=== PATIENT | female | born 1945 | race Caucasian/White ===

== ENCOUNTER → 2016-09-08 | Outpatient (CLI) | payer MEDICARE ==
[~2016-09-08] MED LIST: ASPI-983 PO; ASPI325T32 PO; CARV12.53 PO; CARV6.252 PO; CEPH-507 PO; CLOP75TA PO; CLOP75TA28 PO; CYCL5TAB PO; FURO20TA4 PO; HYDR-3812 PO; LOSA100T28 PO; LOSA50TA36 PO; METF1000; METF1000 PO; MULT-301 PO; NITR100C PO; OMEP20CA12; OMEP20CA12 PO; OMEP20CA6 PO; OMG1KC PO; ONDA4TAB8 PO; PANT20TA3 PO; PANT40TA3 PO; POTA-51 PO; PRD20T PO; SIMV40TA4; SIMV40TA4 PO; SITA100T12 PO; SITA50TA; TRAM50TA2 PO; TRIA1CAP15; TRIA1CAP4 PO; WALK1EAC23 MC
--- OUTSIDE RECORDS SUMMARY | 2016-09-08 16:12 | XMS REPORT | Continuity of Care Document ---
Author Author [facility] Organization [facility] Address Unknown Phone Unavailable Care Team Providers Care Container Packer Operator Name Role Phone CARINE BERNSTEIN MD PCP Insurance Providers Payer Name Policy Number Subscriber Name Relationship Wps Medicare [id number] Ling Jones 18 Self / Same As Patient Blue Cross [facility] Supp [id number] Ling Jones 18 Self / Same As Patient Advance Directives Directive Response Recorded Date/Time Advance Directives No 02/12/16 4:16pm Health Care Power of Casting Operator No 02/12/16 4:16pm Organ Donor Yes 02/12/16 4:16pm Resuscitation Status Full Code 02/12/16 4:16pm Chief Complaint and Reason for Visit Chief Complaint Head/Cervical Problems Reason for Visit Hypertensive urgency Headache Problems Active Problems Medical Problem Onset Date Status Agitation Unknown Acute CVA (cerebral vascular accident) Unknown Acute Expressive aphasia Unknown Acute Headache Unknown Acute Hypertensive urgency Unknown Acute Hypomagnesemia Unknown Acute Left thigh pain Unknown Acute Nausea and vomiting Unknown Acute Quadriceps tendinitis Unknown Acute Receptive aphasia Unknown Acute Transient cerebral ischemia Unknown Acute Urinary tract infection Unknown Acute Medications Current Home Medications Medication Dose Units Route Directions Days/Qty Instructions Start Date Aspirin 325 Mg 325 Mg Oral Bedtime 07/29/14 Carvedilol 6.25 Mg 6.25 Mg Oral Twice A Day 10/13/15 Multivitamin 1 Each 1 Tab Oral Daily 10/13/15 [place] 3 Polyunsat Fatty Acids 1,000 Mg 1,000 Mg Oral Daily 10/13/15 Simvastatin 40 Mg 40 Mg Oral Bedtime 12/12/15 Triamterene/Hydrochlorothiazid 1 Each 1 Cap Oral Daily 12/12/15 Metformin Hcl 1,000 Mg 1,000 Mg Oral Twice A Day 12/12/15 Losartan Potassium 50 Mg 50 Mg Oral Daily 02/04/16 Pantoprazole Sodium 40 Mg 40 Mg Oral Daily 02/04/16 Sitagliptin Phosphate 100 Mg 100 Mg Oral Daily 02/04/16 Clopidogrel Bisulfate 75 Mg 75 Mg Oral Daily 02/04/16 Past Home Medications Medication Directions Ordered Status Tramadol Hcl 50 Mg Tab, 1 Mg Oral Every 6 Hours as needed for P 07/29/14 Discontinued Simvastatin 40 Mg Tablet, 07/29/14 Discontinued Metformin Hcl 1,000 Mg Tablet, 07/29/14 Discontinued Triamterene/Hctz 1 Udcap Capsule, 07/29/14 Discontinued Sitagliptin Phosphate 50 Mg Tablet, 07/29/14 Discontinued Omeprazole 20 Mg Capsule., 07/29/14 Discontinued Clopidogrel Bisulfate 75 Mg Tablet, 1 Each Oral Daily 07/29/14 Discontinued Omeprazole 20 Mg Capsule., 20 Mg Oral Daily 10/13/15 Discontinued Prednisone 20 Mg Tab, 20 Mg Oral Daily 10/13/15 Discontinued Hydrocodone/Acetaminophen 1 Each Tablet, 1 Each Oral Every 6 Hours as needed for Pain 10/13/15 Discontinued Cyclobenzaprine Hcl 5 Mg Tablet, 5 Mg Oral Every 8HRS as needed for Spasms Discontinued Ondansetron 4 Mg Tab.rapdis, 4 Mg Oral Every 4HRS as needed for Nausea/ Vomiting 12/10/15 Discontinued Cephalexin 500 Mg Capsule, 500 Mg Oral Three Times A Day 12/10/15 Discontinued Omeprazole 20 Mg Capsule., 20 Mg Oral Daily 12/12/15 Discontinued Clopidogrel Bisulfate 75 Mg Tablet, 75 Mg Oral Daily 12/13/15 Discontinued Pantoprazole Sodium 20 Mg Tablet.dr 20 Mg Oral Daily@0700 12/13/15 Discontinued Losartan Potassium 50 Mg Tablet, 50 Mg Oral Daily 12/13/15 Discontinued Nitrofurantoin Macrocrystal 100 Mg Capsule, 100 Mg Oral Twice Daily And Prn 12/13/15 Discontinued Social History Social History Problem Response Recorded Date/Time Alcohol Use Rarely Uses 02/12/2016 4:16pm Recreational Drug Use No 02/12/2016 4:16pm Recent Foreign Travel No 02/12/2016 4:16pm Recent Infectious Disease Exposure No 02/12/2016 4:16pm Hospitalization with Isolation Denies 02/12/2016 4:16pm Smoking Status Never a Smoker 02/12/2016 4:16pm Do you dip or chew tobacco? No 02/04/2016 5:50am Query Response Start Date Stop Date Smoking Status Never a Smoker Hospital Discharge Instructions No hospital discharge instructions. Plan of Care Discharge Date 02/12/16 5:46pm Disposition 01 HOME, SELF-CARE Condition at Discharge Improved Instructions/Education Provided Acute Headache (ED) Prescriptions See Medication Section Referrals CARINE BERNSTEIN MD - Primary Care Physician Additional Instructions/Education Return to ER for any concerns such as severe headaches, nausea vomiting 2. Follow-up with Dr. Linda tomorrow 3. Take all your medications as directed All discharge instructions reviewed with patient and/or family. Voiced understanding. Functional Status Query Response Date Recorded Patient Orientation Person Place Time Situation February 12, 2016 4:16pm Comprehension Ability Understands Concepts February 12, 2016 4:16pm Allergies, Adverse Reactions, Alerts Allergen Type Severity Reaction Status Last Updated Sulfa (Sulfonamide Antibiotics) ([id number]) Allergy Unknown Active 30/12 Immunizations No immunization records. Vital Signs Acute Vital Signs Vital Response Date/Time Temperature (Fahrenheit) 98 degrees F (97.6 - 99.5) 02/12/2016 4:16pm Temperature (Calculated Celsius) 36.6696 degrees C (36.4 - 37.5) 02/12/2016 4 :16pm Temperature Source Temporal 02/12/2016 4:16pm Pulse Rate (adult) 101 bpm (60 - 90) 02/12/2016 4:16pm Respiratory Rate 35 bpm (12 - 24) 02/12/2016 4:16pm O2 Sat by Pulse Oximetry 97 % (88 - 100) 02/12/2016 4:16pm Blood Pressure 176/94 mm Hg 02/12/2016 4:16pm Blood Pressure Mean 121 mm Hg 02/12/2016 4:16pm Pain Numeric Pain Scale 8 02/12/2016 4:16pm Height (Feet) 5 feet 02/12/2016 4:16pm Height (Inches) 5 inches 02/12/2016 4:16pm Height (Calculated Centimeters) 165.375395 cm 02/12/2016 4:16pm Weight (Pounds) 200 pounds 02/12/2016 4:16pm Weight (Ounces) 5.0 oz 02/06/2016 6:00am Weight (Calculated Grams) 32595.407 gm 02/06/2016 6:00am Weight (Calculated Kilograms) 90.726782 kilograms 02/12/2016 4:16pm Calculated BMI 37.4 02/04/2016 11:47am Capillary Refill Capillary Refill Less Than 3 Seconds 02/12/2016 4:16pm Results Laboratory Results Test Name Result Units Flags Reference Collection Date/Time Result Date/ Time Comments White Blood Count 8.0 10^3/uL 4.3-11.0 02/04/2016 5:50am 02/04/2016 5: 58am Red Blood Count 3.70 10^6/uL L 4.35-5.85 02/04/2016 5:50am 02/04/2016 5: 58am Hemoglobin 10.3 G/DL L 11.5-16.0 02/04/2016 5:50am 02/04/2016 5:58am Hematocrit 31 % L 35-52 02/04/2016 5:50am 02/04/2016 5:58am Mean Corpuscular Volume 83 FL 80-99 02/04/2016 5:50am 02/04/2016 5: 58am Mean Corpuscular Hemoglobin 28 PG 25-34 02/04/2016 5:50am 02/04/2016 5: 58am Mean Corpuscular Hemoglobin Concent 34 G/DL 32-36 02/04/2016 5:50am 5:58am Red Cell Distribution Width 15.7 % H 10.0-14.5 02/04/2016 5:50am 2015 5:58am Platelet Count 263 10^3/uL 130-400 02/04/2016 5:50am 02/04/2016 5:58am Mean Platelet Volume 9.5 FL 7.4-10.4 02/04/2016 5:50am 02/04/2016 5: 58am Neutrophils (%) (Auto) 70 % 42-75 02/04/2016 5:50am 02/04/2016 5:58am Lymphocytes (%) (Auto) 22 % 12-44 02/04/2016 5:50am 02/04/2016 5:58am Monocytes (%) (Auto) 5 % 0-12 02/04/2016 5:50am 02/04/2016 5:58am Eosinophils (%) (Auto) 2 % 0-10 02/04/2016 5:50am 02/04/2016 5:58am Basophils (%) (Auto) 1 % 0-10 02/04/2016 5:50am 02/04/2016 5:58am Neutrophils # (Auto) 5.7 X 10^3 1.8-7.8 02/04/2016 5:50am 02/04/2016 5: 58am Lymphocytes # (Auto) 1.8 X 10^3 1.0-4.0 02/04/2016 5:50am 02/04/2016 5: 58am Monocytes # (Auto) 0.4 X 10^3 0.0-1.0 02/04/2016 5:50am 02/04/2016 5: 58am Eosinophils # (Auto) 0.2 10^3/uL 0.0-0.3 02/04/2016 5:50am 02/04/2016 5 :58am Basophils # (Auto) 0.1 10^3/uL 0.0-0.1 02/04/2016 5:50am 02/04/2016 5: 58am Prothrombin Time 12.5 SEC 12.2-14.7 02/04/2016 5:50am 02/04/2016 6: 09am INR Comment 1.0 0.8-1.4 02/04/2016 5:50am 02/04/2016 6:09am INTERPRETIVE DATA SUGGESTED THERAPEUTIC RANGE FOR INR'S: VENOUS THROMBOSIS, PULMONARY EMBOLISM, OR PREVENTION OF SYSTEMIC EMBOLISM (EG. IN ATRIAL FIBRILLATION): 2.0 - 3.0 MECHANICAL PROSTHETIC HEART VALVES: 2.5 - 3.5* *NOTE: INR'S UP TO 4.5 MAY BE NECESSARY IN SELECTED GROUPS OF HIGH RISK PATIENTS. [employer] [place] COLLEGE OF CHEST PHYSICIANS CONSENSUS CONFERENCE ON ANTITHROMBOTIC THERAPY (2000). Activated Partial Thromboplast Time 33 SEC 24-35 02/04/2016 5:50am 6:09am D-Dimer 0.91 UG/ML H 0.00-0.49 02/04/2016 5:50am 02/04/2016 9:00am --- 02/04/16 0859 --- D-DIMER previously reported as: 0.91 H UG/ML Urine Color YELLOW 02/04/2016 6:54am 02/04/2016 7:32am Urine Clarity VERY CLOUDY * 02/04/2016 6:54am 02/04/2016 7:32am Urine pH 6 5-9 02/04/2016 6:54am 02/04/2016 7:32am Urine Specific [place] 1.020 1.016-1.022 02/04/2016 6:54am 2015 7:32am Urine Protein 4+ NEGATIVE 02/04/2016 6:54am 02/04/2016 7:32am Urine Glucose (UA) 1+ * NEGATIVE 02/04/2016 6:54am 02/04/2016 7:32am Urine RBC (Auto) NEGATIVE NEGATIVE 02/04/2016 6:54am 02/04/2016 7: 32am Urine Ketones NEGATIVE NEGATIVE 02/04/2016 6:54am 02/04/2016 7:32am Urine Nitrite NEGATIVE NEGATIVE 02/04/2016 6:54am 02/04/2016 7:32am Urine Bilirubin NEGATIVE NEGATIVE 02/04/2016 6:54am 02/04/2016 7: 32am Urine Urobilinogen NORMAL MG/DL NORMAL 02/04/2016 6:54am 02/04/2016 7: 32am Urine Leukocyte Esterase NEGATIVE NEGATIVE 02/04/2016 6:54am 2015 7:32am Urine RBC NONE /HPF 02/04/2016 6:54am 02/04/2016 7:32am Urine WBC NONE /HPF 02/04/2016 6:54am 02/04/2016 7:32am Urine Bacteria TRACE /HPF 02/04/2016 6:54am 02/04/2016 7:32am Urine Squamous Epithelial Cells 0-2 /HPF 02/04/2016 6:54am 2015 7:32am Urine Crystals NONE /LPF 02/04/2016 6:54am 02/04/2016 7:32am Urine Casts NONE /LPF 02/04/2016 6:54am 02/04/2016 7:32am Urine Mucus NEGATIVE /LPF 02/04/2016 6:54am 02/04/2016 7:32am Urine Culture Indicated NO 02/04/2016 6:54am 02/04/2016 7:32am Sodium Level 139 MMOL/L 135-145 02/04/2016 5:50am 02/04/2016 6:20am Potassium Level 4.3 MMOL/L 3.6-5.0 02/04/2016 5:50am 02/04/2016 6:20am Chloride Level 102 MMOL/L 98-107 02/04/2016 5:50am 02/04/2016 6:20am Carbon Dioxide Level 23 MMOL/L 21-32 02/04/2016 5:50am 02/04/2016 6: 20am Anion Gap 14 MMOL/L 5-02/04/2016 5:50am 02/04/2016 6:20am Blood Urea Nitrogen 25 MG/DL H 7-18 02/04/2016 5:50am 02/04/2016 6:20am Creatinine 1.35 MG/DL H 0.60-1.30 02/04/2016 5:50am 02/04/2016 6:20am BUN/Creatinine Ratio 19 02/04/2016 5:50am 02/04/2016 6:20am Estimat Glomerular Filtration Rate 39 02/04/2016 5:50am 02/04/2016 6:20am GFR INTERPRETIVE DATA UNITS FOR ESTIMATED GFR (eGFR): mL/min/1.73 M2 REFERENCE RANGE FOR ESTIMATED GFR (eGFR) eGFR NORMAL eGFR >60 MODERATELY DECREASED eGFR 30-59 SEVERLY DECREASED eGFR 15-29 KIDNEY FAILURE <15 (OR DIALYSIS) Glucose Level 197 MG/DL H 70-105 02/04/2016 5:50am 02/04/2016 6:20am Glucometer 164 MG/DL H 70-110 02/04/2016 6:02pm 02/04/2016 8:49pm Calcium Level 9.7 MG/DL 8.5-10.1 02/04/2016 5:50am 02/04/2016 6:20am Magnesium Level 1.5 MG/DL L 1.8-2.4 02/04/2016 5:50am 02/04/2016 6:20am Total Bilirubin 0.5 MG/DL 0.1-1.0 02/04/2016 5:50am 02/04/2016 6:20am Alkaline Phosphatase 65 U/L 40-136 02/04/2016 5:50am 02/04/2016 6:20am Aspartate Amino Transf (AST/SGOT) 15 U/L 5-34 02/04/2016 5:50am 2015 6:20am Alanine Aminotransferase (ALT/SGPT) 18 U/L 0-55 02/04/2016 5:50am 02/03 6:20am Troponin I < 0.30 NG/ML <0.30 02/04/2016 5:50am 02/04/2016 6:24am Myoglobin 41.6 NG/ML 10.0-92.0 02/04/2016 5:50am 02/04/2016 6:24am Total Protein 6.8 G/DL 6.4-8.2 02/04/2016 5:50am 02/04/2016 6:20am Albumin 4.1 G/DL 3.2-4.5 02/04/2016 5:50am 02/04/2016 6:20am Pending Laboratory Results Test Name Collection Date/Time Microbiology Results Procedure Source Result Collection Date/Time Result Date/Time MRSA Screen Nasal MRSA not isolated 02/04/2016 11:30am 02/05/2016 2:19pm Procedures Procedure Status Date Provider(s) INTRODUCE OTH THROMBOLYTIC IN PERIPH VEIN, PERC Completed 02/04/16 BEATRIZ RAMIREZ DO Tracing only of electrocardiogram Completed 02/04/16 BEATRIZ RAMIREZ DO Tracing only of electrocardiogram Active 02/12/16 DENICE SHAH MEDICAL PRACTICE ASSISTANT Encounters Encounter Location Arrival/Admit Date Discharge/Depart Date Attending Provider Departed Emergency Room [facility] 02/12/16 4:16pm 02/11 5:46pm DENICE SHAH MEDICAL PRACTICE ASSISTANT Registered Recurring [facility] 02/12/16 11:10am CARINE BERNSTEIN MD Discharged Inpatient [facility] 02/04/16 11:03am 3:15pm CARINE BERNSTEIN MD Recent Diagnosis
--- NOTE | 2016-09-08 19:16 | Diagnostic Imaging Report ---
INDICATION: Shortness of breath. PA and lateral chest obtained at 4:33 p.m. Comparison made with 02/04/16. FINDINGS: There is cardiomegaly. There is mild central vascular prominence. There is a small amount of pleural fluid on both sides, left greater than right. There is improved central vascular congestion and edema compared to the prior study. IMPRESSION: Cardiomegaly. Improved central vascular congestion and edema compared to the prior study. There are small bilateral pleural effusions left greater than right. Dictated by: Dictated on workstation # [id number]
== END ==
LOC: RAD 16:02
PROVIDERS: ATTEND Internal Medicine
DX: R06.02 Shortness of breath (principal)
CPT/HCPCS: 71020

== ENCOUNTER → 2016-09-12 | Outpatient (CLI) | payer MEDICARE ==
--- OUTSIDE RECORDS SUMMARY | 2016-09-12 08:36 | XMS REPORT | Continuity of Care Document ---
Author Author [facility] Organization [facility] Address Unknown Phone Unavailable Care Team Providers Care General Service Officer Name Role Phone CARINE BERNSTEIN MD PCP Insurance Providers Payer Name Policy Number Subscriber Name Relationship Wps Medicare [id number] Ling Jones 18 Self / Same As Patient Blue Cross [facility] Supp [id number] Ling Jones 18 Self / Same As Patient Advance Directives Directive Response Recorded Date/Time Advance Directives No 02/12/16 4:16pm Health Care Power of Property Economist No 02/12/16 4:16pm Organ Donor Yes 02/12/16 [...] 1 Each 1 Tab Oral Daily 10/13/15 [place] 3 Polyunsat Fatty Acids 1,000 Mg 1,000 [...] Reaction Status Last Updated Sulfa (Sulfonamide Antibiotics) ([id number]) Allergy Unknown Active 30/12 Immunizations No immunization [...] 5 inches 02/12/2016 4:16pm Height (Calculated Centimeters) 165.134626 cm 02/12/2016 4:16pm Weight (Pounds) 200 pounds 02/12/2016 4:16pm Weight (Ounces) 5.0 oz 02/06/2016 6:00am Weight (Calculated Grams) 92986.407 gm 02/06/2016 6:00am Weight (Calculated Kilograms) 90.166029 kilograms 02/12/2016 4:16pm Calculated BMI 37.4 02/04/2016 [...] SELECTED GROUPS OF HIGH RISK PATIENTS. [employer] [place] [employer]ST [employer] CONSENSUS CONFERENCE ON [...] 5-9 02/04/2016 6:54am 02/04/2016 7:32am Urine Specific [place] 1.020 1.016-1.022 02/04/2016 6:54am 2015 7:32am Urine [...] of electrocardiogram Active 02/12/16 DENICE SHAH MEDICAL SCRIBE Encounters Encounter Location Arrival/Admit Date Discharge/Depart Date Attending Provider Departed Emergency Room [facility] 02/12/16 4:16pm 02/11 5:46pm DENICE SHAH MEDICAL SCRIBE Registered Recurring [facility] 02/12/16 11:10am CARINE BERNSTEIN MD Discharged Inpatient [facility] 02/04/16 11:03am 3:15pm CARINE BERNSTEIN MD Recent Diagnosis
--- NOTE | 2016-09-17 08:05 | ECHOCARDIOGRAPHY REPORT ---
PROCEDURE PHYSICIAN: VALERIE HAYWOOD DATE OF PROCEDURE: 09/12/2016 TWO DIMENSIONAL ECHOCARDIOGRAM REPORT PRIMARY PHYSICIAN: Dr. Linda OTHER PHYSICIAN: REFERRING PHYSICIAN: ORDERING PHYSICIAN: Dr. Haywood INDICATION FOR THE PROCEDURE: 1. Coronary artery disease. 2. Chronic kidney disease stage II. MEASUREMENTS DERIVED VALUES LV DIAMETER (LAX) NORMALS NORMALS Diastolic 6.4 (3.6-5.2) Eject. Fract. (60%+/-6%) Systolic (2.3-3.9) Diastolic Vol. % Shortening (0.22-0.42) Systolic Vol. Aortic Root 3.1 IVS THICKNESS Diastolic 1 (0.6-1.1) LVPW THICKNESS Diastolic 1.1 (0.6-1.1) LA DIAMETER Systolic 4 (2.1-3.7) DESCRIPTION: Two-dimensional echocardiography shows marked impairment of global left ventricular systolic function. There is moderate enlargement of the left ventricle. Aortic, mitral and tricuspid valve leaflets show fair leaflet excursion. There is mild to moderate mitral regurgitation and mild tricuspid regurgitation. Pulmonary artery systolic pressure is estimated to be approximately 50 mmHg. There is global hypokinesis of the left ventricle. There is no Doppler evidence of any significant valvular stenosis. CONCLUSIONS: 1. Marked impairment of global left ventricular systolic function, global hypokinesis of the left ventricle. Left ventricular ejection fraction is approximately 15%. 2. Mild to moderate mitral regurgitation. 3. Mild tricuspid regurgitation. 4. Pulmonary artery systolic pressure is estimated to be approximately 50 mmHg. 5. No evidence of significant valvular stenosis. Job ID: [id number] Dictated Date: 09/16/2016 14:04:18 Carbonizer Date: 09/17/2016 08:00:14 / phong
== END ==
LOC: CARD 08:33
PROVIDERS: ATTEND Internal Medicine Cardiovascular Disease
DX: I25.10 Atherosclerotic heart disease of native coronary artery without angina pectoris (principal); E11.9 Type 2 diabetes mellitus without complications; I12.9 Hypertensive chronic kidney disease with stage 1 through stage 4 chronic kidney disease, or unspecified chronic kidney disease; N18.2 Chronic kidney disease, stage 2 (mild); E78.4 Other hyperlipidemia; Z86.79 Personal history of other diseases of the circulatory system
CPT/HCPCS: 93306

== ENCOUNTER 2016-09-23 06:50 | Day surgery (SDC) | payer MEDICARE ==
[~2016-09-23] VITALS: Ht 157.5 cm; Wt 82.6 kg
[2016-09-23] VITALS (11 sets, daily range): BP systolic 120–138; BP diastolic 58–85
[~2016-09-23 06:50] MED LIST changes: -ASPI-983 PO; -CARV12.53 PO; -FURO20TA4 PO; -LOSA100T28 PO; -POTA-51 PO
--- OUTSIDE RECORDS SUMMARY | 2016-09-23 06:54 | XMS REPORT | Continuity of Care Document ---
Author Author [facility] Organization [facility] Address Unknown Phone Unavailable Care Team Providers Care Peer Financial Counselor Name Role Phone CARINE BERNSTEIN MD PCP Insurance Providers Payer Name Policy Number Subscriber Name Relationship Wps Medicare [id number] Ling Jones 18 Self / Same As Patient Blue Cross [facility] Supp [id number] Ling Jones 18 Self / Same As Patient Advance Directives Directive Response Recorded Date/Time Advance Directives No 02/12/16 4:16pm Health Care Power of Fulfillment Coordinator No 02/12/16 4:16pm Organ Donor Yes 02/12/16 [...] 1 Each 1 Tab Oral Daily 10/13/15 [place] 3 Polyunsat Fatty Acids 1,000 Mg 1,000 [...] Reaction Status Last Updated Sulfa (Sulfonamide Antibiotics) ([id number]) Allergy Unknown Active 30/12 Immunizations No immunization [...] 5 inches 02/12/2016 4:16pm Height (Calculated Centimeters) 165.458907 cm 02/12/2016 4:16pm Weight (Pounds) 200 pounds 02/12/2016 4:16pm Weight (Ounces) 5.0 oz 02/06/2016 6:00am Weight (Calculated Grams) 44328.407 gm 02/06/2016 6:00am Weight (Calculated Kilograms) 90.458403 kilograms 02/12/2016 4:16pm Calculated BMI 37.4 02/04/2016 [...] SELECTED GROUPS OF HIGH RISK PATIENTS. [employer]IX[employer] [place] [employer]ST [employer] CONSENSUS CONFERENCE ON [...] 5-9 02/04/2016 6:54am 02/04/2016 7:32am Urine Specific [place] 1.020 1.016-1.022 02/04/2016 6:54am 2015 7:32am Urine [...] only of electrocardiogram Active 02/12/16 DENICE SHAH PHYSICAL THERAPIST TECHNICIAN Encounters Encounter Location Arrival/Admit Date Discharge/Depart Date Attending Provider Departed Emergency Room [facility] 02/12/16 4:16pm 02/11 5:46pm DENICE SHAH PHYSICAL THERAPIST TECHNICIAN Registered Recurring [facility] 02/12/16 11:10am CARINE BERNSTEIN MD Discharged Inpatient [facility] 02/04/16 11:03am 3:15pm CARINE BERNSTEIN MD Recent Diagnosis
--- OUTSIDE RECORDS SUMMARY | 2016-09-23 06:55 | XMS REPORT | Continuity of Care Document ---
Author Author [facility] Organization [facility] Address Unknown Phone Unavailable Care Team Providers Care Air Breaker Operator Name Role Phone CARINE BERNSTEIN MD PCP Insurance Providers Payer Name Policy Number Subscriber Name Relationship Wps Medicare [id number] Ling Jones 18 Self / Same As Patient Blue Cross [facility] Supp [id number] Ling Jones 16 Self / Same As Patient Advance Directives Directive Response Recorded Date/Time Advance Directives No 02/12/16 4:16pm Health Care Power of Curtain Cutter Hand No 02/12/16 4:16pm Organ Donor Yes 02/12/16 [...] 1 Each 1 Tab Oral Daily 10/13/15 [place] 3 Polyunsat Fatty Acids 1,000 Mg 1,000 [...] Reaction Status Last Updated Sulfa (Sulfonamide Antibiotics) ([id number]) Allergy Unknown Active 30/12 Immunizations No immunization [...] 5 inches 02/12/2016 4:16pm Height (Calculated Centimeters) 165.042805 cm 02/12/2016 4:16pm Weight (Pounds) 200 pounds 02/12/2016 4:16pm Weight (Ounces) 5.0 oz 02/06/2016 6:00am Weight (Calculated Grams) 76580.407 gm 02/06/2016 6:00am Weight (Calculated Kilograms) 90.785644 kilograms 02/12/2016 4:16pm Calculated BMI 37.4 02/04/2016 [...] SELECTED GROUPS OF HIGH RISK PATIENTS. [employer] [place] [employer] CONSENSUS CONFERENCE ON [...] 5-9 02/04/2016 6:54am 02/04/2016 7:32am Urine Specific [place] 1.020 1.016-1.022 02/04/2016 6:54am 2015 7:32am Urine [...] only of electrocardiogram Active 02/12/16 DENICE SHAH TECHNICAL EDUCATION TEACHER Encounters Encounter Location Arrival/Admit Date Discharge/Depart Date Attending Provider Departed Emergency Room [facility] 02/12/16 4:16pm 02/11 5:46pm DENICE SHAH TECHNICAL EDUCATION TEACHER Registered Recurring [facility] 02/12/16 11:10am CARINE BERNSTEIN MD Discharged Inpatient [facility] 02/04/16 11:03am 3:15pm CARINE BERNSTEIN MD Recent Diagnosis
[2016-09-23] MEDS ORDERED: LIDOCAINE 1% INJ 20 ML (XYLOCAINE) VIAL ONE (07:01)
[2016-09-23] MEDS ORDERED: HEParin (CATH LAB) 2,000 ML IV ONE (07:01)
[2016-09-23] MEDS ORDERED: NS IV 1000 ML 1,000 ML ONE (07:01)
[2016-09-23] MEDS ORDERED: NS IV 1000 ML 1,000 ML IV SCH ×2 (07:20)
[2016-09-23 07:48] LABS: MEAN PLATELET VOLUME 9.7 FL (7.4-10.4); RED BLOOD COUNT 4.15 10^6/uL (4.35-5.85); RED CELL DISTRIBUTION WIDTH 17.2 % (10.0-14.5); WHITE BLOOD COUNT 5.6 10^3/uL (4.3-11.0)
[2016-09-23 07:57] LABS: INR 1.3 (0.8-1.4); PROTHROMBIN TIME PATIENT 15.5 SEC (12.2-14.7)
[2016-09-23 08:09] LABS: ALBUMIN 3.9 G/DL (3.2-4.5); BILIRUBIN,TOTAL 1.3 MG/DL (0.1-1.0); CALCIUM 8.9 MG/DL (8.5-10.1); CREATININE SERUM 1.78 MG/DL (0.60-1.30); POTASSIUM 3.9 MMOL/L (3.6-5.0)
[2016-09-23] MEDS ORDERED: ASPI-983 PO (10:02)
[2016-09-23] MEDS ORDERED: LOSA100T28 PO (10:02)
[2016-09-23] MEDS ORDERED: POTA-51 PO (10:19)
[2016-09-23] MEDS ORDERED: OMEP20CA12 PO (10:19)
[2016-09-23] MEDS ORDERED: FURO20TA4 PO (10:19)
[2016-09-23] MEDS ORDERED: CARV12.53 PO (10:31)
[2016-09-23] MEDS ORDERED: fentaNYL INJECTION 100 MCG/2 ML AMP ONE (10:48)
[2016-09-23] MEDS ORDERED: diphenhydrAMINE 50 MG/ML INJ (BENADRYL) ONE (10:48)
[2016-09-23] MEDS ORDERED: MIDAZOLAM 5 MG/5 ML (VERSED) VIAL ONE (10:48)
--- NOTE | 2016-09-23 13:28 | Cardiac Procedure Note-CS/ASA ---
Pre-Procedure Note Pre-Op Procedure Note H&P Reviewed The H&P was reviewed, patient examined and no changes noted. Date H&P Reviewed: Sep 23, 2016 Time H&P Reviewed: :28 Conscious Sedation Pre-Proced Time Reviewed: :28 ASA Class: 3 Airway Mallampati Classification: ([place] appropriate class) I. II. III, IV Lungs Heart ASA score ASA 1: a normal healthy patient ASA 2: a patient with a mild systemic disease (mid diabetes, controlled hypertension, obesity ASA 3: a patient with a severe systemic disease that limits activity (angina , COPD, prior Myocardial infarction) ASA 4: a patient with an incapacitating disease that is a constant threat to life (CHF, renal failure) ASA 5: a moribund patient not expected to survive 24 hrs. (ruptured aneurysm) ASA 6: a declared brain patient whose organs are being harvested. For emergent operations, add the letter E after the classification Grade 3 Sedation Plan: Analgesia, Amnesia, Plan communicated to team members, Discussed options with patient/fam, Discussed risks with patient/fam Note The patient is an appropriate candidate to undergo the planned procedure, sedation, and anesthesia. The patient immediately re-assessed prior to indication. VALERIE HARGROVE MD FACP FAC CCDS Sep 23, 2016 13:28
[2016-09-23] MEDS ORDERED: HEParin 1000 UNIT/ML (10ML VIAL) FOR BOLUS ONE (14:05)
[2016-09-23] MEDS ORDERED: EPTIFIBATIDE BOLUS 20 ML IV ONE (14:05)
[2016-09-23] MEDS ORDERED: NITROGLYCERIN DRIP 25 MG/D5W 250 ML IV ONE (14:09)
[2016-09-23] MEDS ORDERED: ASPIRIN 81 MG CHEW (CHILDREN'S ASA) ONE (15:06)
[2016-09-23] MEDS ORDERED: CLOPIDOGREL 300 MG (PLAVIX) TABLET PO ONE (15:06)
[2016-09-23] MEDS ORDERED: FUROSEMIDE 40 MG/4 ML INJ (LASIX) IVP ONE (15:45)
[2016-09-23] MEDS ORDERED: ACETAMINOPHEN 325 MG TABLET/CAPLET (TYLENOL) PO PRN (15:45)
[2016-09-23] MEDS ORDERED: PATIENT MAY USE OWN MEDS, ALL PO SCH (15:45)
[2016-09-23] MEDS: NS IV 1000 ML 1,000 ML IV SCH (17:15)
[2016-09-23] MEDS: inSUlin (REGULAR) HUMAN 1 UNIT/0.01 ML (CHARGE PER UNIT) SC SCH ×2 (17:21→21:00)
[2016-09-23] MEDS: OMEGA 3 (FISH OIL) 1000 MG CAP PO SCH (21:00)
[2016-09-23] MEDS: CARVEDILOL 6.25 MG (COREG) TAB PO SCH (21:13)
[2016-09-24 00:10] VITALS: BP 143/71
[2016-09-24] MEDS: NS IV 1000 ML 1,000 ML IV SCH (03:28)
[2016-09-24 04:05] VITALS: BP 136/69
[2016-09-24] MEDS: inSUlin (REGULAR) HUMAN 1 UNIT/0.01 ML (CHARGE PER UNIT) SC SCH (05:58)
[2016-09-24 06:07] LABS: MEAN PLATELET VOLUME 10.3 FL (7.4-10.4); RED BLOOD COUNT 3.68 10^6/uL (4.35-5.85); RED CELL DISTRIBUTION WIDTH 17.2 % (10.0-14.5); WHITE BLOOD COUNT 4.9 10^3/uL (4.3-11.0)
[2016-09-24] MEDS ORDERED: MULTIVIT PO SCH (07:00)
[2016-09-24] MEDS ORDERED: KCL 20 MEQ TAB (K-DUR) PO SCH (07:00)
[2016-09-24] MEDS ORDERED: PANTOPRAZOLE 20 MG TABLET (PROTONIX) PO SCH (07:00)
[2016-09-24] MEDS ORDERED: MINERALS PO SCH (07:00)
[2016-09-24 07:01] LABS: CALCIUM 8.5 MG/DL (8.5-10.1); CREATININE SERUM 1.69 MG/DL (0.60-1.30); POTASSIUM 3.6 MMOL/L (3.6-5.0)
[2016-09-24 08:09] VITALS: BP 140/72
[2016-09-24] MEDS: OMEGA 3 (FISH OIL) 1000 MG CAP PO SCH (08:33)
[2016-09-24] MEDS: CARVEDILOL 6.25 MG (COREG) TAB PO SCH (08:35)
[2016-09-24] MEDS: ASPIRIN E.C. 81 MG (ECOTRIN) TAB PO SCH ×2 (08:39→08:41)
[2016-09-24] MEDS ORDERED: FUROSEMIDE 20 MG (LASIX) TAB PO SCH (09:00)
[2016-09-24] MEDS ORDERED: CLOPIDOGREL 75 MG (PLAVIX) TABLET PO SCH (09:00)
[2016-09-24] MEDS ORDERED: SITAGLIPTIN 100 MG PO SCH (09:00)
--- NOTE | 2016-09-24 09:29 | Progress Note-Cardiology ---
Cardiology SOAP Progress Note Subjective: Sitting up in a chair at the bedside. States she feels better this morning. No c/o CP, palpitations or dyspnea. No c/o right groin discomfort. Spouse at the bedside. Objective: I&O/Vital Signs Vital Sign - Last 12Hours 09/24/16 09/24/16 09/24/16 09/24/16 00:10 01:00 04:05 07:00 Temp 97.7 98.2 Pulse 80 71 94 92 Resp 18 20 B/P 143/71 136/69 Pulse Ox 96 94 O2 Delivery Room Air Room Air 09/24/16 09/24/16 09/24/16 08:09 09:00 10:20 Temp 96.9 Pulse 80 80 Resp 20 20 B/P 140/72 140/72 Pulse Ox 94 94 O2 Delivery Room Air Room Air Room Air Weight (Pounds): 182 Weight (Ounces): 0.0 Weight (Calculated Kilograms): 82.300366 Side: right Groin site without hematoma: Yes Condition: DP/PT pulses palpable, extremity w/d/p Bruising: mild bruising Constitutional: AAO x 3 Respiratory: lungs clear to auscultation Cardiovascular: regular rate-rhythm S1 and S2 Gastrointestional: No tender, soft round Extremities: significant edema (mid bilat LE edema) Neurologic/Psychiatric: grossly intact Skin: No rash, No ulcerations Results/Procedures: Labs Laboratory Tests 09/23/16 17:20: Glucometer 105 09/23/16 21:12: Glucometer 127H 09/24/16 05:50: Anion Gap 13, BUN/Creatinine Ratio 12, Blood Urea Nitrogen 21H, Calcium Level 8.5, Carbon Dioxide Level 24, Chloride Level 103, Creatinine 1.69H, Estimat Glomerular Filtration Rate 30, Glucose Level 114H, Hematocrit 27L, Hemoglobin 8.6L, Mean Corpuscular Hemoglobin 23L, Mean Corpuscular Hemoglobin Concent 32, Mean Corpuscular Volume 74L, Mean Platelet Volume 10.3, Platelet Count 214, Potassium Level 3.6, Red Blood Count 3.68L, Red Cell Distribution Width 17.2H, Sodium Level 140, White Blood Count 4.9 09/24/16 05:53: Glucometer 121H A/P: Assessment: CAD. Last card cath and cor intervention on 09/23/16: S/p proximal PTCA (instent) and distal RCA coronary stenting and proximal PTCA (instent) of the LCX on ; 70% ostial LAD stenosis not intervened on at this time Acute systolic CHF due to dilated cardiomyopathy - clinically compensated H/o CVA/TIA x 3 in the summer of 2015; one episode diagnosed with thromboemblic R MCA stroke (according to ER notes) and apparently treated with TPA Carotid w/u in January 2016 at [facility]: carotid u/s showed mild atherosclerotic bilat disease with stenoses 0-40%; CT angio head showed no high grade stenosis, occlusion or ic aneurysm Last echo of 09/12/16 showed LVEF 15%, mild to mod to MR, mild TR, PASP 50 mmHg. Prior echo of 12/12/15 (Dr Yang): LVEF 45-50%, midl MR and TR, mild diastolic dysfunction Hypertension. Hyperlipidemia being treated with simvastatin. Intolerance to FAITH inhibitors on account of cough. History of lower gastrointestinal bleeding due to diverticulitis in August 2005, followed by her fam phy Obesity with a body mass index of approximately 39. 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 This is being managed by Dr Solis CKD stage 3, likely due to diabetic nephropathy, stable Chronic anemia or unknown etiology, followed by Dr Solis Plan: Cr slightly better following aggressive IVF hydration after cardiac cath We have discussed her coronary status with her We will continue current medications including Plavix, ASA and BB Discharge home today with out pt f/u in a week Lab next week before office visit Physician Assessment Physician Assessment Lungs: good bilat air entry Cor: reg A&R As documented in our note above that I updated at the time of this writing I spoke with her and her daughter and answered questions FRANTZ CORLEY Sep 24, 2016 09:29 VALERIE HARGROVE MD FACP FAC CCDS Sep 24, 2016 12:05
--- NOTE | 2016-09-24 09:33 | Discharge Inst-Cardiology ---
Discharge Inst-Cardiac Discharge Medications Continued Medications: Aspirin (Aspirin EC) 81 Mg Tablet.dr 81 MG PO HS TAB Carvedilol (Carvedilol) 12.5 Mg Tablet 12.5 MG PO BID TAB Clopidogrel Bisulfate (Clopidogrel) 75 Mg Tablet 75 MG PO DAILY TAB Furosemide (Furosemide) 20 Mg Tablet 20 MG PO DAILY TAB Losartan Potassium (Losartan Potassium) 100 Mg Tablet 100 MG PO DAILY TAB Metformin HCl (Metformin HCl) 1,000 Mg Tablet 1000 MG PO BID Multivitamin (Multi-Day Vitamins) 1 Each Tablet 1 TAB PO DAILY [place] 3 Polyunsat Fatty Acids (Fish Oil 1,000 mg Capsule) 1,000 Mg Cap 1000 MG PO BID Omeprazole (Omeprazole) 20 Mg Capsule.dr 20 MG PO DAILY Potassium Chloride (Potassium Chloride) 20 Meq Tablet.er 20 MEQ PO DAILY TAB Sitagliptin Phosphate (Januvia) 100 Mg Tablet 50 MG PO DAILY TAKES 1/2 OF A (100 MG) TABLET Patient Instructions Patient Instructions: HOLD METFORMIN TODAY AND TOMORROW. RESUME METFORMIN STARTING ON MONDAY, SEPTEMBER 26, 2016 Follow up appt to see Dr. Haywood next week Lab: CBC, BMP on Thursday, September 29, 2016 FRANTZ CORLEY Sep 24, 2016 09:32
[2016-09-24 10:20] VITALS: BP 140/72
--- NOTE | 2016-09-24 13:15 | CARDIAC CATHETERIZATION ---
PROCEDURE PHYSICIAN: VALERIE HARGROVE CARDIAC CATHETERIZATION AND CORONARY INTERVENTION REPORT DATE OF PROCEDURE: 09/23/2016 Ling Jones is a 71-year-old lady with known coronary artery disease, who recently found to have considerable deterioration of her left ventricular ejection fraction to approximately 15% from previous approximately 45%. Ischemic coronary artery disease was suspected and cardiac catheterization was carried out after having obtained an informed consent. Vigorous perioperative hydration was carried out because of her chronic kidney disease stage III. She understood all for risk and provided an informed consent. PROCEDURE: She is brought to the cardiac catheterization laboratory in a fasting state. The right groin was prepared and draped in the usual sterile fashion. 1% lidocaine was used for local anesthesia. Modified Seldinger technique was used to advance a 5-Canadian sheath in right femoral artery. A 5-Canadian JL4 catheter was used for left coronary angiography, 5 Canadian JR4 was used for right coronary angiography. A 5-Canadian pigtail catheter was used for left heart catheterization. Left ventricular angiography was not performed to conserve dye. PERCUTANEOUS INTERVENTION TO THE RIGHT CORONARY ARTERY: Following completion of the diagnostic procedure, we exchanged the sheath over a wire for a 6-Canadian sheath. We gave 5000 units of intravenous heparin. A double bolus of Integrilin was given. We used a 6-Canadian JR4 guide catheter with side holes to engage the right coronary artery. We used a BMW wire to cross the lesions in the right coronary artery. We first carried out balloon angioplasty of the 70% in-stent restenosis with Emerge 3.0 x 30 mm balloon and then NC Quantum 3.0 x 20 mm balloon. The balloon inflations reduced the stenosis to approximately 10% residual. In the distal right coronary artery, prior to the origin of the posterior descending branch, there was approximately 80% stenosis to which we first carried out balloon angioplasty with Emerge 2.0 x 20 mm balloon and then stented the lesion with Alpine Xience 2.25 x 12 mm stent. This reduced the stenosis to 0% residual. Throughout the vessel was normal. Angioplasty equipment was removed. PERCUTANEOUS INTERVENTION TO THE LEFT CIRCUMFLEX ARTERY: Following completion of intervention to the right coronary artery, we used a 6-Canadian JL4 guide catheter to engage the left circumflex artery. We used a BMW wire to cross the lesion in the left circumflex artery and the tip was placed in distal vessel. We carried out balloon angioplasty for in-stent restenosis of the proximal left circumflex artery, which reduced the stenosis from approximately 70% to 10% residual. CORONARY ANGIOGRAPHY: Diffuse coronary calcification is present. The left main coronary artery does not exhibit significant obstructive disease. The left anterior descending artery has 70% ostial stenosis, which was not intervened on today. The right coronary artery has diffuse moderate disease. Left circumflex artery has a patent stent with 70% stenosis in the proximal part of the stent to which balloon angioplasty was carried out with reduction of stenosis to 10%. The rest of the left circumflex artery has diffuse, moderate disease. Right coronary artery is dominant and is known to have Taxus 3.0 x 30 mm stent in the proximal and mid portions, which was exhibiting 70% in-stent restenosis to which successful balloon angioplasty was carried out with reduction of stenosis to 10% residual. The distal right coronary artery, prior to the origin of the posterior descending branch had 80% stenosis to which successful stenting was carried out following deployment of Alpine Xience 2.25 x 12 mm stent to the distal right coronary artery, there is 0% residual stenosis. CONCLUSION: 1. Multivessel coronary artery disease as outlined above. In the proximal right coronary artery there was 70% restenosis which was reduced to 10% following balloon angioplasty. The distal right coronary artery had 80% stenosis, which was reduced to 0% following deployment of Alpine Xience 2.25 x 12 mm stent. The left circumflex artery had 70% instent restenosis in the proximal left circumflex to which balloon angioplasty was carried out and reduced the stenosis to 10% residual. The left anterior descending artery has 70% ostial and proximal stenosis, which was not intervened on at this time. 2. Mild elevation left ventricular end-diastolic pressure. DISCUSSION AND RECOMMENDATIONS: The patient has multiple vessel coronary artery disease and this is the likely source of her newly diagnosed significant cardiomyopathy. We carried out intervention to the left circumflex and right coronary artery today. Left anterior descending artery may be better served with left internal mammary artery graft. This will be discussed with her. If she does not wish to undergo surgery, we will consider percutaneous intervention to this lesion. Job ID: [id number] Dictated Date: 09/23/2016 15:09:30 Slubber Hand Date: 09/24/2016 12:58:50 / rivka VANG
== END 2016-09-24 10:20 | disposition home or self-care (01) ==
LOC: CATH 06:50 → ICU 15:20 → 4TH 22:11 → CATH 09-24 10:20
PROVIDERS: ATTEND Internal Medicine Cardiovascular Disease
DX: I25.10 Atherosclerotic heart disease of native coronary artery without angina pectoris (principal); I50.21 Acute systolic (congestive) heart failure; T82.855A Stenosis of coronary artery stent, initial encounter; N18.3 Chronic kidney disease, stage 3 (moderate); I12.9 Hypertensive chronic kidney disease with stage 1 through stage 4 chronic kidney disease, or unspecified chronic kidney disease; I25.84 Coronary atherosclerosis due to calcified coronary lesion; E78.5 Hyperlipidemia, unspecified; E11.22 Type 2 diabetes mellitus with diabetic chronic kidney disease; E66.9 Obesity, unspecified; D53.9 Nutritional anemia, unspecified; Z68.33 Body mass index [BMI] 33.0-33.9, adult; Z79.899 Other long term (current) drug therapy
CPT/HCPCS: 36415; 80048; 80053; 80061; 82962; 85027; 85610; 85730; 87081; 92920; 93005; 93458

== ENCOUNTER 2016-10-31 09:38 | Outpatient (RCR) | payer MEDICARE ==
[~2016-10-31 09:38] MED LIST changes: +ASPI-983 PO; +CARV12.53 PO; +FURO20TA4 PO; +LOSA100T28 PO; +POTA-51 PO
== END 2017-01-29 | disposition home or self-care (01) ==
LOC: DSME 09:38
PROVIDERS: ATTEND Internal Medicine
DX: E11.9 Type 2 diabetes mellitus without complications (principal); I10 Essential (primary) hypertension

== ENCOUNTER → 2017-01-05 | Outpatient (CLI) | payer MEDICARE | LOC: CARD 12:09 | PROVIDERS: ATTEND Internal Medicine Cardiovascular Disease | DX: I25.10 Atherosclerotic heart disease of native coronary artery without angina pectoris (principal); E11.9 Type 2 diabetes mellitus without complications; I42.0 Dilated cardiomyopathy; I50.22 Chronic systolic (congestive) heart failure; I11.0 Hypertensive heart disease with heart failure; E78.3 Hyperchylomicronemia; N18.3 Chronic kidney disease, stage 3 (moderate) ==

== ENCOUNTER 2019-02-28 08:47 | Inpatient (IN) | payer MEDICARE ==
[2019-02-28] VITALS (11 sets, daily range): BP systolic 117–170; BP diastolic 52–109
[~2019-02-28] VITALS: Ht 157.5 cm; Wt 90.3 kg
[~2019-02-28 08:47] MED LIST changes: +ACHD5005 PO; -HYDR-3812 PO; -LOSA100T28 PO; +LOSA100T57 PO; -LOSA50TA36 PO; +LOSA50TA63 PO; +METF-399 PO; -METF1000 PO; -OMEP20CA12 PO; +OMEP20CA13 PO
[2019-02-28] MEDS ORDERED: ASPIRIN 81 MG CHEW (CHILDREN'S ASA) PO ONE (09:15)
--- NOTE | 2019-02-28 09:17 | ED Chest Pain ---
General Chief Complaint: Respiratory Problems Stated Complaint: SOA;WEAKNESS Nursing Triage Note: Pt to Rm 5 via W/C with help out of pt vehicle with complaints of SOB and chest discomfort. Pt reports this started x 1 week ago and is worse with exertion. Pt denies any chest pain at this time and is A&O x 4. Nursing Sepsis Screen: No Definite Risk Source: patient, old records Exam Limitations: no limitations History of Present Illness Date Seen by Provider: Feb 28, 2019 Time Seen by Provider: 08:57 Initial Comments This 73-year-old woman with known coronary artery disease with history of stenting and angioplasty presents to the emergency room with complaints of chest tightness and shortness of air for about one week. She denies any cough or fever. She has history of ischemic cardiomyopathy and had an ejection fraction of 30-35 percent by echocardiogram December 2016. Echo showed diastolic dysfunction with moderate mitral regurgitation. She also had a cardiac catheterization performed in September 2016. She had multiple vessels with in-stent restenosis with angioplasty performed during the angiogram. She also had new lesions stented at that time. Patient complains of significant dyspnea and chest tightness on exertion. She also has unilateral left leg and foot swelling which is worse than usual. Her primary director of tax services is Dr. Haywood. Her primary care providers Dr. Mendez Barajas. Allergies and Home Medications Allergies Coded Allergies: Sulfa (Sulfonamide Antibiotics) (Verified Allergy, Unknown, 09/01/05) Home Medications Acetaminophen 500 Mg Tablet, 1,000 MG PO Q6H PRN for PAIN-MILD, (Reported) Aspirin 81 Mg Tablet.dr, 81 MG PO HS, (Reported) Carvedilol 12.5 Mg Tablet, 12.5 MG PO BID, (Reported) Clopidogrel Bisulfate 75 Mg Tablet, 75 MG PO DAILY, (Reported) Furosemide 20 Mg Tablet, 20 MG PO DAILY, (Reported) Losartan Potassium 100 Mg Tablet, 100 MG PO DAILY, (Reported) Multivitamin 1 Each Tablet, 1 EACH PO DAILY, (Reported) [place] 3 Polyunsat Fatty Acids 1,000 Mg Cap, 1,000 MG PO DAILY, (Reported) Omeprazole 20 Mg Capsule.dr, 20 MG PO DAILY, (Reported) Pravastatin Sodium 10 Mg Tablet, 10 MG PO HS, (Reported) Sennosides/Docusate Sodium 1 Each Tablet, 1 EACH PO HS PRN for CONSTIPATION-6TH LINE, (Reported) Sitagliptin Phosphate 100 Mg Tablet, 50 MG PO DAILY, (Reported) TAKES 1/2 OF A (100 MG) TABLET Patient Home Medication List Home Medication List Reviewed: Yes Review of Systems Review of Systems Constitutional: other (easily fatigues) EENTM: No Symptoms Reported Respiratory: See HPI Cardiovascular: See HPI Gastrointestinal: No Symptoms Reported Genitourinary: No Symptoms Reported Musculoskeletal: no symptoms reported Skin: no symptoms reported Psychiatric/Neurological: No Symptoms Reported Endocrine: No Symptoms Reported Hematologic/Lymphatic: No Symptoms Reported Past Jveisqu-Sbkgnn-Gzsjcx Hx Past Med/Social Hx: Reviewed and Corrections made Patient Social History 2nd Hand Smoke Exposure: No Recent Foreign Travel: No Contact w/Someone Who Travel: No Recent Infectious Disease Expo: No Recent Hopitalizations: Yes (CVA 02/02/16) Immunizations Up To Date Tetanus Booster (TDap): Less than 5yrs Date of Pneumonia Vaccine: Jun 12, 2014 Date of Influenza Vaccine: Apr 25, 2016 Seasonal Allergies Seasonal Allergies: No Past Medical History Surgeries: Yes Cardiac, Coronary Stent, Gallbladder, Hysterectomy Respiratory: No Currently Using CPAP: No Currently Using BIPAP: No Cardiac: Yes Cardiomyopathy (ischemic cardiomyopathy with systolic dysfunction), Coronary Artery Disease, High Cholesterol, Hypertension, Valvular Heart Disease Neurological: Yes Stroke, TIA : No Reproductive Disorders: No Female Reproductive Disorders: Denies [employer] History: Hysterectomy, Menopausal Genitourinary: No Gastrointestinal: Yes Gastroesophageal Reflux, Diverticulosis Musculoskeletal: Yes Arthritis Endocrine: Yes Diabetes, Non-Insulin dep HEENT: No Cancer: No Psychosocial: No Integumentary: No Adverse Reaction/Blood Tranf: No Family Medical History Reviewed Nursing Family Hx Hypertension Physical Exam Vital Signs Vital Signs - First Documented 02/28/19 08:47 Temp 97.6 Pulse 81 Resp 19 B/P (MAP) 146/87 (106) Pulse Ox 97 O2 Delivery Room Air Capillary Refill : Less Than 3 Seconds Height, Weight, BMI Height: 5'2.00" Weight: 200lbs. 0.0oz. 90.198750hs; 33.3 BMI Method:Stated General Appearance: WD/WN, Anxious HEENT: PERRL/EOMI, Normal ENT Inspection, Pharynx Normal Neck: Normal Inspection; No JVD Respiratory: Lungs Clear, Normal Breath Sounds, No Accessory Muscle Use, No Respiratory Distress, Other (respirations are shallow with no crackles or wheezes) Cardiovascular: Regular Rate, Rhythm, Systolic Murmur, Other (mild edema over the left lower extremity) Gastrointestinal: Normal Bowel Sounds, Non Tender, Soft Extremity: Normal Capillary Refill, Non Tender, Pedal Edema (left lower leg and foot) Neurologic/Psychiatric: Alert, Oriented x3, No Motor/Sensory Deficits, 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 Norm as Tested, Other (anxious) Skin: Normal Color, Warm/Dry Progress/Results/Core Measures Results/Orders Lab Results Laboratory Tests Test 02/28/19 09:17 02/28/19 10:15 02/28/19 11:47 Range/Units White Blood Count 7.0 4.3-11.0 10^3/uL Red Blood Count 3.83 L 4.35-5.85 10^6/uL Hemoglobin 10.1 L 11.5-16.0 G/DL Hematocrit 31 L 35-52 % Mean Corpuscular Volume 80 80-99 FL Mean Corpuscular Hemoglobin 26 25-34 PG Mean Corpuscular Hemoglobin Concent 33 32-36 G/DL Red Cell Distribution Width 16.6 H 10.0-14.5 % Platelet Count 218 130-400 10^3/uL Mean Platelet Volume 10.6 H 7.4-10.4 FL Neutrophils (%) (Auto) 77 H 42-75 % Lymphocytes (%) (Auto) 15 12-44 % Monocytes (%) (Auto) 7 0-12 % Eosinophils (%) (Auto) 1 0-10 % Basophils (%) (Auto) 1 0-10 % Neutrophils # (Auto) 5.3 1.8-7.8 X 10^3 Lymphocytes # (Auto) 1.0 1.0-4.0 X 10^3 Monocytes # (Auto) 0.5 0.0-1.0 X 10^3 Eosinophils # (Auto) 0.1 0.0-0.3 10^3/uL Basophils # (Auto) 0.0 0.0-0.1 10^3/uL Prothrombin Time 15.4 H 12.2-14.7 SEC INR Comment 1.2 0.8-1.4 Activated Partial Thromboplast Time 26 24-35 SEC D-Dimer 1.85 H 0.00-0.49 UG/ML Sodium Level 140 135-145 MMOL/L Potassium Level 4.7 3.6-5.0 MMOL/L Chloride Level 106 98-107 MMOL/L Carbon Dioxide Level 21 21-32 MMOL/L Anion Gap 13 5-14 MMOL/L Blood Urea Nitrogen 24 H 7-18 MG/DL Creatinine 2.05 H 0.60-1.30 MG/DL Estimat Glomerular Filtration Rate 24 BUN/Creatinine Ratio 12 Glucose Level 203 H 70-105 MG/DL Calcium Level 9.3 8.5-10.1 MG/DL Corrected Calcium 9.5 8.5-10.1 MG/DL Magnesium Level 2.0 1.8-2.4 MG/DL Total Bilirubin 1.0 0.1-1.0 MG/DL Aspartate Amino Transf (AST/SGOT) 22 5-34 U/L Alanine Aminotransferase (ALT/SGPT) 15 0-55 U/L Alkaline Phosphatase 101 40-136 U/L Myoglobin 63.4 10.0-92.0 NG/ML Troponin I 0.328 *H 0.338 *H <0.028 NG/ML C-Reactive Protein High Sensitivity 2.09 H 0.00-0.50 MG/DL B-Type Natriuretic Peptide 2616.0 H <100.0 PG/ML Total Protein 7.1 6.4-8.2 GM/DL Albumin 3.8 3.2-4.5 GM/DL Urine Color YELLOW Urine Clarity CLEAR Urine pH 5 5-9 Urine Specific [place] 1.020 1.016-1.022 Urine Protein 3+ H NEGATIVE Urine Glucose (UA) NEGATIVE NEGATIVE Urine Ketones NEGATIVE NEGATIVE Urine Nitrite POSITIVE H NEGATIVE Urine Bilirubin NEGATIVE NEGATIVE Urine Urobilinogen 1 NORMAL MG/DL Urine Leukocyte Esterase 3+ H NEGATIVE Urine RBC (Auto) 1+ H NEGATIVE Urine RBC RARE /HPF Urine WBC 5-10 H /HPF Urine Squamous Epithelial Cells 2-5 /HPF Urine Crystals NONE /LPF Urine Bacteria FEW H /HPF Urine Casts NONE /LPF Urine Mucus NEGATIVE /LPF Urine Culture Indicated YES My Orders Orders - CHARLOTTE MARTINES MD Cbc With Automated Diff (02/28/19 09:09) Magnesium (02/28/19 09:09) Chest 1 View, Ap/Pa Only (02/28/19 09:09) Ekg Tracing (02/28/19 09:09) Cardiac Profile 1 (02/28/19 09:09) Comprehensive Metabolic Panel (02/28/19 09:09) Myoglobin Serum (02/28/19 09:09) Protime With Inr (02/28/19 09:09) Partial Thromboplastin Time (02/28/19 09:09) O2 (02/28/19 09:09) Monitor-Rhythm Ecg Trace Only (02/28/19 09:09) Lipid Panel (03/01/19 06:00) Ed Iv/Invasive Line Start (02/28/19 09:09) BNP (02/28/19 09:09) Fibrin Degradation Products (02/28/19 09:09) Hs C Reactive Protein (02/28/19 09:09) Ua Culture If Indicated (02/28/19 09:09) Aspirin Chewable Tablet (Baby Aspirin Ch (02/28/19 09:15) Us Venous Lower Ext Jose Miguel (02/28/19 10:19) Troponin I (02/28/19 11:15) Urine Culture (02/28/19 10:15) Furosemide Injection (Lasix Injection) (02/28/19 12:00) Enoxaparin Injection (Lovenox Injection) (02/28/19 12:00) Ceftriaxone For Iv Use (Rocephin For I (02/28/19 12:00) Medications Given in ED Current Medications Medications Dose Ordered Sig/Cindy Route Start Time Stop Time Status Last Admin Dose Admin Ceftriaxone Sodium 1000 mg/ Sterile Water 10 ml @ 200 mls/hr ONCE ONCE IV 02/28/19 12:00 02/28/19 12:02 DC 02/28/19 12:07 200 MLS/HR Enoxaparin Sodium 90 mg ONCE ONCE SC 02/28/19 12:00 02/28/19 12:01 DC 02/28/19 12:10 90 MG Furosemide 40 mg ONCE ONCE IVP 02/28/19 12:00 02/28/19 12:01 DC 02/28/19 12:10 40 MG Vital Signs/I&O 02/28/19 08:47 Temp 97.6 Pulse 81 Resp 19 B/P (MAP) 146/87 (106) Pulse Ox 97 O2 Delivery Room Air Blood Pressure Mean: 106 Progress Progress Note : Time: 12:05 Progress Note Patient was seen and examined shortly after arrival. Aspirin was given but patient declined nitroglycerin. Cardiac workup was pursued. D-dimer was elevated but CT angiogram cannot be performed due to renal function. Bilateral lower extremity ultrasound was obtained and was negative for DVT. Troponin returned mildly elevated. BNP was significantly elevated. Case was discussed with Dr. Lopez. He considers her troponin to suggest NSTEMI. He recommends treatment with Lasix and Lovenox. Patient was also found to have urinary tract infection and is being treated with Rocephin. She will be admitted to the ICU for non-STEMI. Initial ECG Impression Date: Feb 28, 2019 Initial ECG Impression Time: 08:51 Initial ECG Rate: 82 Initial ECG Rhythm: Normal Sinus Comment Sinus rhythm with no ST elevation or depression. Probable LVH. No significant abnormal intervals. Diagnostic Imaging Diagonstic Imaging: Ultrasound Plain Films/CT/US/NM/MRI: leg Comments Report of the bilateral lower extremity Doppler reviewed by me. See report below: NAME: [facility] REC#: [id number] PT STATUS: REG ER : 1945 PHYSICIAN: CHARLOTTE MARTINES MD ADMIT DATE: 02/28/19/ER Draft Date of Exam:02/28/19 US VENOUS LOWER EXT JOSE MIGUEL PROCEDURE: US Venous Lower Ext Jose Miguel. TECHNIQUE: Multiple real-time grayscale images were obtained over the lower extremities in various projections, bilaterally. Additional duplex Doppler and color Doppler images were also obtained. INDICATION: Shortness of air and weakness. FINDINGS: There is no evidence of a right or left lower extremity DVT. Both lower extremity deep venous systems demonstrate normal compressibility with normal response to augmentation and Valsalva. No fluid collection or mass is seen. IMPRESSION: No evidence of right or left lower extremity DVT. Dictated on workstation # [id number] Dict: 02/28/19 1129 Trans: 02/28/19 1138 [id number] Interpreted by: PA SANDERSON MD Diagonstic Imaging: Xray Plain Films/CT/US/NM/MRI: chest Comments Chest x-ray viewed by me. Report not yet available. There is cardiomegaly with suggestion of mild congestion. No overt infiltrate or consolidation. Departure Communication (Admissions) Time/Spoke to Admitting Phy: 11:53 Dr. Mendez Barajas Time/Spoke to Consulting Phy: 11:50 Dr. Lopez Impression Primary Impression: Non-ST elevation myocardial infarction (NSTEMI) Additional Impressions: Congestive heart failure Qualified Codes: I50.23 - Acute on chronic systolic (congestive) heart failure Chest pain Qualified Codes: R07.9 - Chest pain, unspecified Dyspnea Qualified Codes: R06.00 - Dyspnea, unspecified Urinary tract infection Qualified Codes: N39.0 - Urinary tract infection, site not specified Disposition: 09 ADMITTED INPATIENT Condition: Improved Admissions Decision to Admit Reason: Admit from ER (General) Decision to Admit/Date: Feb 28, 2019 Time/Decision to Admit Time: 11:45 Departure-Patient Inst. Referrals: NO,LOCAL PHYSICIAN (PCP/Family) Primary Care Physician CHARLOTTE MARTINES MD Feb 28, 2019 09:17
[2019-02-28 09:37] LABS: BASOPHILS % (AUTO) 1 % (0-10); EOSINOPHILS # (AUTO) 0.1 10^3/uL (0.0-0.3); EOSINOPHILS % (AUTO) 1 % (0-10); HEMATOCRIT 31 % (35-52); HEMOGLOBIN 10.1 G/DL (11.5-16.0); LYMPHOCYTES % (AUTO) 15 % (12-44); MEAN CORPUSCULAR HEMOGLOBIN 26 PG (25-34); MEAN CORPUSCULAR HGB CONC 33 G/DL (32-36); MEAN CORPUSCULAR VOLUME 80 FL (80-99); MEAN PLATELET VOLUME 10.6 FL (7.4-10.4); MONOCYTES # (AUTO) 0.5 X 10^3 (0.0-1.0); MONOCYTES % (AUTO) 7 % (0-12); NEUTROPHILS # (AUTO) 5.3 X 10^3 (1.8-7.8); NEUTROPHILS % (AUTO) 77 % (42-75); PLATELET COUNT 218 10^3/uL (130-400); RED CELL DISTRIBUTION WIDTH 16.6 % (10.0-14.5)
[2019-02-28 09:43] LABS: INR 1.2 (0.8-1.4); PROTHROMBIN TIME PATIENT 15.4 SEC (12.2-14.7)
[2019-02-28 09:57] LABS: ALBUMIN 3.8 GM/DL (3.2-4.5); CALCIUM 9.3 MG/DL (8.5-10.1); CREATININE SERUM 2.05 MG/DL (0.60-1.30); POTASSIUM 4.7 MMOL/L (3.6-5.0); TOTAL PROTEIN 7.1 GM/DL (6.4-8.2)
[2019-02-28 10:22] LABS: BILIRUBIN,URINE NEGATIVE (NEGATIVE); CLARITY,URINE CLEAR; COLOR,URINE YELLOW; GLUCOSE, URINE (UA) NEGATIVE (NEGATIVE); KETONES,URINE NEGATIVE (NEGATIVE); LEUKOCYTE ESTERASE ,URINE 3+ (NEGATIVE); NITRITE,URINE POSITIVE (NEGATIVE); PH,URINE 5 (5-9); PROTEIN,URINE 3+ (NEGATIVE); UROBILINOGEN,URINE 1 MG/DL (NORMAL)
[2019-02-28 10:23] LABS: BACTERIA,URINE FEW /HPF; RBC,URINE RARE /HPF
--- NOTE | 2019-02-28 11:39 | Diagnostic Imaging Report ---
PROCEDURE: US Venous Lower Ext Luis. TECHNIQUE: Multiple real-time grayscale images were obtained over the lower extremities in various projections, bilaterally. Additional duplex Doppler and color Doppler images were also obtained. INDICATION: Shortness of air and weakness. FINDINGS: There is no evidence of a right or left lower extremity DVT. Both lower extremity deep venous systems demonstrate normal compressibility with normal response to augmentation and Valsalva. No fluid collection or mass is seen. IMPRESSION: No evidence of right or left lower extremity DVT. Dictated by: Dictated on workstation # [id number]
--- OUTSIDE RECORDS SUMMARY | 2019-02-28 11:46 | XMS REPORT | Continuity of Care Document ---
Author Organization Unknown Address Unknown Phone Unavailable Allergies Active Description Code Type Severity Reaction Onset Reported/Identified Relationship to Patient Clinical Status Yes Sulfa (Sulfonamide Antibiotics) [id number] Drug Allergy Unknown N/A 09/01/2005 Medications There is no data. Problems Date Dx Coded Attending Type Code Diagnosis Diagnosed By 06/18/1051 AMANDEEP MIX, CARINE Woods Ot I69.951 HEMIPLGA FOL UNSP CEREBVASC DISEASE AFF 12/26/2009 Ot 285.9 12/26/2009 Ot 455.0 12/26/2009 Ot 455.3 12/26/2009 Ot 535.40 12/26/2009 Ot 562.10 12/26/2009 Ot V12.72 12/26/2009 Ot V67.09 07/29/2014 EFRAIN MIX, MEHRDAD Terry Ot 435.9 TRANS CEREB ISCHEMIA NOS 07/29/2014 MEHRDAD ZUNIGA MD Ot 782.0 SKIN SENSATION DISTURB 07/29/2014 Ot 397.0 07/29/2014 Ot 424.0 07/29/2014 Ot V76.12 08/02/2014 Ot 397.0 08/02/2014 Ot 424.0 08/02/2014 Ot V76.12 09/07/2014 LEON COOL MD Ot 433.30 09/14/2014 LEON COOL MD Ot 433.30 10/13/2015 LOAN EPSTEIN Ot E11.9 TYPE 2 DIABETES MELLITUS WITHOUT COMPLIC 10/13/2015 LOAN EPSTEIN Ot I10 ESSENTIAL (PRIMARY) HYPERTENSION 10/13/2015 LOAN EPSTEIN Ot M16.12 UNILATERAL PRIMARY OSTEOARTHRITIS, LEFT 10/13/2015 LOAN EPSTEIN Ot M76.892 OTH ENTHESOPATHIES OF LEFT LOWER LIMB, E 12/10/2015 BOBBI MIX, CHARLOTTE Corral Ot M79.652 PAIN IN LEFT THIGH 12/10/2015 CHARLOTTE MARTINES MD Ot N39.0 URINARY TRACT INFECTION, SITE NOT SPECIF 12/10/2015 CHARLOTTE MARTINES MD Ot R11.2 NAUSEA WITH VOMITING, UNSPECIFIED 12/10/2015 CHARLOTTE MARTINES MD Ot R51 HEADACHE 12/10/2015 Ot V76.12 OTH SCREEN MAMMO- MALIGN NEOPLASM OF [place] 12/10/2015 SILVINA MIX, LEON Sauceda Ot 433.30 MULT BILTRAL ARTERY OCCLUSION WO CEREBRA 12/11/2015 CHARLOTTE MARTINES MD Ot M79.652 PAIN IN LEFT THIGH 12/11/2015 CHARLOTTE MARTINES MD Ot N39.0 URINARY TRACT INFECTION, SITE NOT SPECIF 12/11/2015 CHARLOTTE MARTINES MD Ot R11.2 NAUSEA WITH VOMITING, UNSPECIFIED 12/11/2015 CHARLOTTE MARTINES MD Ot R51 HEADACHE 12/12/2015 ZANDER MARTIN MD, Ot B96.20 UNSP ESCHERICHIA COLI THE CAUSE OF DI 12/12/2015 ZANDER MARTIN MD Ot E11.9 TYPE 2 DIABETES MELLITUS WITHOUT COMPLIC 12/12/2015 ZANDER MARTIN MD Ot E78.0 PURE HYPERCHOLESTEROLEMIA 12/12/2015 ZANDER MARTIN MD, Ot G45.9 TRANSIENT CEREBRAL ISCHEMIC ATTACK, UNSP 12/12/2015 ZANDER MARTIN MD Ot I08.1 RHEUMATIC DISORDERS OF BOTH MITRAL AND T 12/12/2015 ZANDER MARTIN MD Ot I10 ESSENTIAL (PRIMARY) HYPERTENSION 12/12/2015 ZANDER MARTIN MD, Ot I25.10 ATHSCL HEART DISEASE OF [place] CORONARY 12/12/2015 ZANDER MARTIN MD, Ot K21.9 GASTRO-ESOPHAGEAL REFLUX DISEASE WITHOUT 12/12/2015 ZANDER MARTIN MD, Ot N30.00 ACUTE CYSTITIS WITHOUT HEMATURIA 12/12/2015 ZANDER MARTIN MD Ot 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 12/12/2015 ZANDER MARTIN MD Ot Z95.5 PRESENCE OF CORONARY ANGIOPLASTY IMPLANT 12/13/2015 ZANDER MARTIN MD, Ot B96.20 UNSP ESCHERICHIA COLI THE CAUSE OF DI 12/13/2015 ZANDER MARTIN MD, Ot E11.9 TYPE 2 DIABETES MELLITUS WITHOUT COMPLIC 12/13/2015 ZANDER MARTIN MD Ot E78.0 PURE HYPERCHOLESTEROLEMIA 12/13/2015 ZANDER MARTIN MD Ot G45.9 TRANSIENT CEREBRAL ISCHEMIC ATTACK, UNSP 12/13/2015 ZANDER MARTIN MD Ot I08.1 RHEUMATIC DISORDERS OF BOTH MITRAL AND T 12/13/2015 ZANDER MARTIN MD Ot I10 ESSENTIAL (PRIMARY) HYPERTENSION 12/13/2015 ZANDER MARTIN MD, Ot I25.10 ATHSCL HEART DISEASE OF [place] CORONARY 12/13/2015 ZANDER MARTIN MD, Ot K21.9 GASTRO-ESOPHAGEAL REFLUX DISEASE WITHOUT 12/13/2015 ZANDER MARTIN MD, Ot N30.00 ACUTE CYSTITIS WITHOUT HEMATURIA 12/13/2015 ZANDER MARTIN MD, Ot Z79.82 RETIREMENT (CURRENT) USE OF ASPIRIN 12/13/2015 ZANDER MARTIN MD, Ot Z95.5 PRESENCE OF CORONARY ANGIOPLASTY IMPLANT 02/06/2016 CARINE BERNSTEIN MD Ot E11.9 TYPE 2 DIABETES MELLITUS WITHOUT COMPLIC 02/06/2016 CARINE BERNSTEIN MD Ot E78.0 PURE HYPERCHOLESTEROLEMIA 02/06/2016 CARINE BERNSTEIN MD Ot E83.42 HYPOMAGNESEMIA 02/06/2016 CARINE BERNSTEIN MD Ot G81.91 HEMIPLEGIA, UNSPECIFIED AFFECTING RIGHT 02/06/2016 CARINE BERNSTEIN MD Ot I08.1 RHEUMATIC DISORDERS OF BOTH MITRAL AND T 02/06/2016 CARINE BERNSTEIN MD Ot I10 ESSENTIAL (PRIMARY) HYPERTENSION 02/06/2016 CARINE BERNSTEIN MD, Ot I25.10 ATHSCL HEART DISEASE OF [place] CORONARY 02/06/2016 CARINE BERNSTEIN MD Ot I27.2 OTHER SECONDARY PULMONARY HYPERTENSION 02/06/2016 CARINE BERNSTEIN MD Ot 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 02/06/2016 CARINE BERNSTEIN MD Ot K21.9 GASTRO-ESOPHAGEAL REFLUX DISEASE WITHOUT 02/06/2016 CARINE BERNSTEIN MD Ot R29.810 FACIAL WEAKNESS 02/06/2016 CARINE BERNSTEIN MD Ot R45.1 RESTLESSNESS AND AGITATION 02/06/2016 CARINE BERNSTEIN MD Ot R47.01 APHASIA 02/06/2016 ODGERS MD, CARINE K Ot Z87.19 PERSONAL HISTORY OF OTHER DISEASES OF 02/06/2016 CARINE BERNSTEIN MD Ot Z95.5 PRESENCE OF CORONARY ANGIOPLASTY IMPLANT 02/06/2016 CARINE BERNSTEIN MD Ot E03.9 HYPOTHYROIDISM, UNSPECIFIED 02/06/2016 CARINE BERNSTEIN MD Ot E11.9 TYPE 2 DIABETES MELLITUS WITHOUT COMPLIC 02/06/2016 CARINE BERNSTEIN MD Ot E78.0 PURE HYPERCHOLESTEROLEMIA 02/06/2016 CARINE BERNSTEIN MD Ot E83.42 HYPOMAGNESEMIA 02/06/2016 CARINE BERNSTEIN MD Ot G81.91 HEMIPLEGIA, UNSPECIFIED AFFECTING RIGHT 02/06/2016 CARINE BERNSTEIN MD Ot I08.1 RHEUMATIC DISORDERS OF BOTH MITRAL AND T 02/06/2016 CARINE BERNSTEIN MD Ot I10 ESSENTIAL (PRIMARY) HYPERTENSION 02/06/2016 CARINE BERNSTEIN MD Ot I25.10 ATHSCL HEART DISEASE OF [place] CORONARY 02/06/2016 CARINE BERNSTEIN MD Ot I27.2 OTHER SECONDARY PULMONARY HYPERTENSION 02/06/2016 CARINE BERNSTEIN MD Ot 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 02/06/2016 CARINE BERNSTEIN MD Ot K21.9 GASTRO-ESOPHAGEAL REFLUX DISEASE WITHOUT 02/06/2016 CARINE BERNSTEIN MD Ot R29.810 FACIAL WEAKNESS 02/06/2016 CARINE BERNSTEIN MD Ot R45.1 RESTLESSNESS AND AGITATION 02/06/2016 CARINE BERNSTEIN MD Ot R47.01 APHASIA 02/06/2016 CARINE BERNSTEIN MD Ot Z87.19 PERSONAL HISTORY OF OTHER DISEASES OF 02/06/2016 CARINE BERNSTEIN MD Ot Z95.5 PRESENCE OF CORONARY ANGIOPLASTY IMPLANT 02/12/2016 DENICE SHAH APRN Ot I10 ESSENTIAL (PRIMARY) HYPERTENSION 02/12/2016 DENICE SHAH APRN Ot R51 HEADACHE 02/12/2016 DENICE SHAH APRN Ot 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 02/12/2016 DENICE SHAH APRN Ot Z79.82 RETIREMENT (CURRENT) USE OF ASPIRIN 02/12/2016 DENICE SHAH APRN Ot Z86.73 PRSNL HX OF TIA (TIA), AND CEREB INFRC W 02/14/2016 DENICE SHAH [employer] ASSEM[employer]ER Ot I10 ESSENTIAL (PRIMARY) HYPERTENSION 02/14/2016 DENICE SHAH [employer] ASSEM[employer]ER Ot R51 HEADACHE 02/14/2016 DENICE SHAH [employer] ASSEMBLER Ot 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 02/14/2016 DENICE SHAH [employer] ASSEMBLER Ot Z79.82 RETIREMENT (CURRENT) USE OF ASPIRIN 02/14/2016 DENICE SHAH APRN Ot Z86.73 PRSNL HX OF TIA (TIA), AND CEREB INFRC W 03/18/2016 CARINE BERNSTEIN MD Ot I69.951 HEMIPLGA FOL UNSP CEREBVASC DISEASE AFF 03/20/2016 CARINE BERNSTEIN MD Ot I69.951 HEMIPLGA FOL UNSP CEREBVASC DISEASE AFF 04/10/2016 CARINE BERNSTEIN MD Ot I69.951 HEMIPLGA FOL UNSP CEREBVASC DISEASE AFF 09/10/2016 OLVIN ZUNIGA MD Ot R06.02 SHORTNESS OF BREATH 09/12/2016 Ot V76.12 OTH SCREEN MAMMO- MALIGN NEOPLASM OF [place] 09/12/2016 SILVINA MIX, LEON Sauceda Ot 433.30 MULT BILTRAL ARTERY OCCLUSION WO CEREBRA 09/12/2016 OLVIN ZUNIGA MD Ot R06.02 SHORTNESS OF BREATH 09/16/2016 BEENA MIX FACC, VALERIE FACP CCDS Ot E11.9 TYPE 2 DIABETES MELLITUS WITHOUT COMPLIC 09/16/2016 BEENA MIX FACC, VALERIE FACP CCDS Ot E78.4 OTHER HYPERLIPIDEMIA 09/16/2016 BEENA MIX FACC, ALI FACP CCDS Ot I12.9 HYPERTENSIVE CHRONIC KIDNEY DISEASE W ST 09/16/2016 BEENA MIX FACC, VALERIE FACP CCDS Ot I25.10 ATHSCL HEART DISEASE OF [place] CORONARY 09/16/2016 BEENA MIX FACC, VALERIE FACP CCDS Ot N18.2 CHRONIC KIDNEY DISEASE, STAGE 2 (MILD) 09/16/2016 BEENA MIX FACC, ALI FACP CCDS Ot Z86.79 PERSONAL HISTORY OF OTHER DISEASES OF TH 09/19/2016 BEENA MIX FACC, VALERIE FACP CCDS Ot E11.9 TYPE 2 DIABETES MELLITUS WITHOUT COMPLIC 09/19/2016 BEENA MIX FACC, VALERIE FACP CCDS Ot E78.4 OTHER HYPERLIPIDEMIA 09/19/2016 BEENA MIX FACC, ALI FACP CCDS Ot I12.9 HYPERTENSIVE CHRONIC KIDNEY DISEASE W ST 09/19/2016 BEENA MIX FACC, ALI FACP CCDS Ot I25.10 ATHSCL HEART DISEASE OF [place] CORONARY 09/19/2016 BEENA MIX FACC, ALI FACP CCDS Ot N18.2 CHRONIC KIDNEY DISEASE, STAGE 2 (MILD) 09/19/2016 BEENA MIX FACC, ALI FACP CCDS Ot Z86.79 PERSONAL HISTORY OF OTHER DISEASES OF TH 09/24/2016 BEENA MIX FACC, ALI FACP CCDS Ot D53.9 NUTRITIONAL ANEMIA, UNSPECIFIED 09/24/2016 BEENA MIX FACC, ALI FACP CCDS Ot E11.22 TYPE 2 DIABETES MELLITUS W DIABETIC TUBE MOUNTER 09/24/2016 BEENA MIX FACC, ALI FACP CCDS Ot E66.9 OBESITY, UNSPECIFIED 09/24/2016 BEENA MIX FACC, ALI FACP CCDS Ot E78.5 HYPERLIPIDEMIA, UNSPECIFIED 09/24/2016 BEENA MIX FACC, ALI FACP CCDS Ot I12.9 HYPERTENSIVE CHRONIC KIDNEY DISEASE W ST 09/24/2016 BEENA MIX FACC, ALI FACP CCDS Ot I25.10 ATHSCL HEART DISEASE OF [place] CORONARY 09/24/2016 BEENA MIX FACC, ALI FACP CCDS Ot I25.84 CORONARY ATHEROSCLEROSIS DUE TO CALCIFIE 09/24/2016 BEENA MIX FACC, ALI FACP CCDS Ot I50.21 ACUTE SYSTOLIC (CONGESTIVE) HEART FAILUR 09/24/2016 BEENA MIX FACC, ALI FACP CCDS Ot N18.3 CHRONIC KIDNEY DISEASE, STAGE 3 (MODERAT 09/24/2016 BEENA MIX FACC, ALI FACP CCDS Ot T82.855A STENOSIS OF CORONARY ARTERY STENT, INITI 09/24/2016 BEENA MIX FACC, ALI FACP CCDS Ot Z68.33 BODY MASS INDEX (BMI) 33.0-33.9, ADULT 09/24/2016 BEENA MIX FACC, ALI FACP CCDS Ot Z79.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 10/01/2016 EFRAIN MIX, OLVIN Roper Ot R06.02 SHORTNESS OF BREATH 10/08/2016 BEENA MIX FACC, ALI FACP CCDS Ot E11.9 TYPE 2 DIABETES MELLITUS WITHOUT COMPLIC 10/08/2016 BEENA MIX FACC, ALI FACP CCDS Ot E78.4 OTHER HYPERLIPIDEMIA 10/08/2016 BEENA MIX FACC, ALI FACP CCDS Ot I12.9 HYPERTENSIVE CHRONIC KIDNEY DISEASE W ST 10/08/2016 BEENA MIX FACC, ALI FACP CCDS Ot I25.10 ATHSCL HEART DISEASE OF [place] CORONARY 10/08/2016 BEENA MIX FACC, ALI FACP CCDS Ot N18.2 CHRONIC KIDNEY DISEASE, STAGE 2 (MILD) 10/08/2016 BEENA MIX FACC, ALI FACP CCDS Ot Z86.79 PERSONAL HISTORY OF OTHER DISEASES OF TH 10/08/2016 EFRIAN MIX, OLVIN Roper Ot R06.02 SHORTNESS OF BREATH 10/09/2016 BEENA MIX FACC, ALI FACP CCDS Ot E11.9 TYPE 2 DIABETES MELLITUS WITHOUT COMPLIC 10/09/2016 BEENA MIX FACC, ALI FACP CCDS Ot E78.4 OTHER HYPERLIPIDEMIA 10/09/2016 BEENA MIX FACC, ALI FACP CCDS Ot I12.9 HYPERTENSIVE CHRONIC KIDNEY DISEASE W ST 10/09/2016 BEENA MIX FACC, ALI FACP CCDS Ot I25.10 ATHSCL HEART DISEASE OF [place] CORONARY 10/09/2016 BEENA MIX FACC, ALI FACP CCDS Ot N18.2 CHRONIC KIDNEY DISEASE, STAGE 2 (MILD) 10/09/2016 BEENA MIX FACC, ALI FACP CCDS Ot Z86.79 PERSONAL HISTORY OF OTHER DISEASES OF TH 10/12/2016 BEENA MIX FACC, ALI FACP CCDS Ot D53.9 NUTRITIONAL ANEMIA, UNSPECIFIED 10/12/2016 BEENA MIX FACC, ALI FACP CCDS Ot E11.22 TYPE 2 DIABETES MELLITUS W DIABETIC TUBE MOUNTER 10/12/2016 BEENA MIX FACC, ALI FACP CCDS Ot E66.9 OBESITY, UNSPECIFIED 10/12/2016 BEENA MIX FACC, ALI FACP CCDS Ot E78.5 HYPERLIPIDEMIA, UNSPECIFIED 10/12/2016 BEENA MIX FACC, ALI FACP CCDS Ot I12.9 HYPERTENSIVE CHRONIC KIDNEY DISEASE W ST 10/12/2016 BEENA MIX FACC, ALI FACP CCDS Ot I25.10 ATHSCL HEART DISEASE OF [place] CORONARY 10/12/2016 BEENA MIX FACC, VALERIE FACP CCDS Ot I25.84 CORONARY ATHEROSCLEROSIS DUE TO CALCIFIE 10/12/2016 VALERIE HARGROVE MD, FACC FACP CCDS Ot I50.21 ACUTE SYSTOLIC (CONGESTIVE) HEART FAILUR 10/12/2016 VALERIE HARGROVE MD, FACC FACP CCDS Ot N18.3 CHRONIC KIDNEY DISEASE, STAGE 3 (MODERAT 10/12/2016 VALERIE HARGROVE MD, FACC FACP CCDS Ot T82.855A STENOSIS OF CORONARY ARTERY STENT, INITI 10/12/2016 VALERIE HARGROVE MD, FACC FACP CCDS Ot Z68.33 BODY MASS INDEX (BMI) 33.0-33.9, ADULT 10/12/2016 VALERIE HARGROVE MD, FACCP CCDS Ot 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.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 11/03/2016 OLVIN ZUNIGA MD, Ot E11.9 TYPE 2 DIABETES MELLITUS WITHOUT COMPLIC 11/03/2016 OLVIN ZUNIGA MD, Ot I10 ESSENTIAL (PRIMARY) HYPERTENSION 11/04/2016 OLVIN ZUNIGA MD, Ot E11.9 TYPE 2 DIABETES MELLITUS WITHOUT COMPLIC 11/04/2016 OLVIN ZUNIGA MD, Ot I10 ESSENTIAL (PRIMARY) HYPERTENSION 11/17/2016 CHARLOTTE MARTINES MD Ot M79.652 PAIN IN LEFT THIGH 11/17/2016 CHARLOTTE MARTINES MD Ot N39.0 URINARY TRACT INFECTION, SITE NOT SPECIF 11/17/2016 CHARLOTTE MARTINES MD Ot R11.2 NAUSEA WITH VOMITING, UNSPECIFIED 11/17/2016 CHARLOTTE MARTINES MD T Ot R51 HEADACHE 12/10/2016 OLVIN ZUNIGA MD, Ot E11.9 TYPE 2 DIABETES MELLITUS WITHOUT COMPLIC 12/10/2016 OLVNI ZUNIGA MD, Ot I10 ESSENTIAL (PRIMARY) HYPERTENSION 12/17/2016 OLVIN ZUNIGA MD, Ot E11.9 TYPE 2 DIABETES MELLITUS WITHOUT COMPLIC 12/17/2016 OLVIN ZUNIGA MD, Ot I10 ESSENTIAL (PRIMARY) HYPERTENSION 01/11/2017 VALERIE HARGROVE MD, FACCP CCDS Ot E11.9 TYPE 2 DIABETES MELLITUS WITHOUT COMPLIC 01/11/2017 VALERIE HARGROVE MD, FACCP CCDS Ot E78.3 HYPERCHYLOMICRONEMIA 01/11/2017 BEENA MD FACC, ALI FACP CCDS Ot I11.0 HYPERTENSIVE HEART DISEASE WITH HEART FA 01/11/2017 BEENA MARKSC, ALI FACP CCDS Ot I25.10 ATHSCL HEART DISEASE OF [place] CORONARY 01/11/2017 BEENA MIX FACC, ALI FACP CCDS Ot I42.0 DILATED CARDIOMYOPATHY 01/11/2017 BEENA MIX FACC, ALI FACP CCDS Ot I50.22 CHRONIC SYSTOLIC (CONGESTIVE) HEART FAIL 01/11/2017 BEENA MARKSC, ALI FACP CCDS Ot N18.3 CHRONIC KIDNEY DISEASE, STAGE 3 (MODERAT 01/28/2017 BEENA MARKSC, ALI FACP CCDS Ot E11.9 TYPE 2 DIABETES MELLITUS WITHOUT COMPLIC 01/28/2017 BEENA MARKSC, ALI FACP CCDS Ot E78.3 HYPERCHYLOMICRONEMIA 01/28/2017 BEENA MARKSC, ALI FACP CCDS Ot I11.0 HYPERTENSIVE HEART DISEASE WITH HEART FA 01/28/2017 BEENA MARKSC, ALI FACP CCDS Ot I25.10 ATHSCL HEART DISEASE OF [place] CORONARY 01/28/2017 BEENA MARKSC, ALI FACP CCDS Ot I42.0 DILATED CARDIOMYOPATHY 01/28/2017 BEENA MARKSC, ALI FACP CCDS Ot I50.22 CHRONIC SYSTOLIC (CONGESTIVE) HEART FAIL 01/28/2017 BEENA MIX FACC, ALI FACP CCDS Ot N18.3 CHRONIC KIDNEY DISEASE, STAGE 3 (MODERAT 01/29/2017 OLVIN ZUNIGA MD Ot E11.9 TYPE 2 DIABETES MELLITUS WITHOUT COMPLIC 01/29/2017 EFRAIN MIX, OLVIN Roper Ot I10 ESSENTIAL (PRIMARY) HYPERTENSION 02/05/2017 BEENA MARKSC, ALI FACP CCDS Ot E11.9 TYPE 2 DIABETES MELLITUS WITHOUT COMPLIC 02/05/2017 BEENA MIX FACC, ALI FACP CCDS Ot E78.3 HYPERCHYLOMICRONEMIA 02/05/2017 BEENA MARKSC, ALI FACP CCDS Ot I11.0 HYPERTENSIVE HEART DISEASE WITH HEART FA 02/05/2017 BEENA MARKSC, ALI FACP CCDS Ot I25.10 ATHSCL HEART DISEASE OF [place] CORONARY 02/05/2017 BEENA MIX FACC, ALI FACP CCDS Ot I42.0 DILATED CARDIOMYOPATHY 02/05/2017 BEENA MIX FACC, ALI FACP CCDS Ot I50.22 CHRONIC SYSTOLIC (CONGESTIVE) HEART FAIL 02/05/2017 BEENA MIX FACC, VALERIE LOJA CCDS Ot N18.3 CHRONIC KIDNEY DISEASE, STAGE 3 (MODERAT 02/17/2017 CHARLOTTE MARTINES MD, Ot M79.652 PAIN IN LEFT THIGH 02/17/2017 CHARLOTTE MARTINES MD, Ot N39.0 URINARY TRACT INFECTION, SITE NOT SPECIF 02/17/2017 CHARLOTTE MARTINES MD, Ot R11.2 NAUSEA WITH VOMITING, UNSPECIFIED 02/17/2017 HCARLOTTE MARTINES MD, Ot R51 HEADACHE Procedures Code Description Performed By Performed On [id number] [facility] 02/04/2016 Results Test Result Range Automated blood complete blood count (hemogram) panel - 09/23/16 07:39 Blood leukocytes automated count (number/volume) 5.6 10*3/uL 4.3-11.0 Blood erythrocytes automated count (number/volume) 4.15 10*6/uL 4.35-5.85 Venous blood hemoglobin measurement (mass/volume) 9.8 g/dL 11.5-16.0 Blood hematocrit (volume fraction) 30 % 35-52 Automated erythrocyte mean corpuscular volume 73 [foz_us] 80-99 Automated erythrocyte mean corpuscular hemoglobin (mass per erythrocyte) 24 pg 25-34 Automated erythrocyte mean corpuscular hemoglobin concentration measurement (mass/volume) 32 g/dL 32-36 Automated erythrocyte distribution width ratio 17.2 % 10.0- 14.5 Automated blood platelet count (count/volume) 215 10*3/uL 130-400 Automated blood platelet mean volume measurement 9.7 [foz_us] 7.4-10.4 PT panel in platelet poor plasma by coagulation assay - 09/23/16 07:39 Prothrombin time (PT) in platelet poor plasma by coagulation assay 15.5 s 12.2-14.7 INR in platelet poor plasma or blood by coagulation assay 1.3 0.8-1.4 Activated partial thromboplastin time (aPTT) in platelet poor plasma bycoagulation assay - 09/23/16 07:39 Activated partial thromboplastin time (aPTT) in platelet poor plasma bycoagulation assay 34 s 24-35 Comprehensive metabolic panel - 03/07/17 07:39 Serum or plasma sodium measurement (moles/volume) 140 mmol/L 135-145 Serum or plasma potassium measurement (moles/volume) 3.9 mmol/L 3.6-5.0 Serum or plasma chloride measurement (moles/volume) 102 mmol/L 98-107 Carbon dioxide 24 mmol/L 21-32 Serum or plasma anion gap determination (moles/volume) 14 mmol/L 5-14 Serum or plasma urea nitrogen measurement (mass/volume) 23 mg/dL 7-18 Serum or plasma creatinine measurement (mass/volume) 1.78 mg/dL 0.60-1.30 Serum or plasma urea nitrogen/creatinine mass ratio 13 NRG Serum or plasma creatinine measurement with calculation of estimated glomerular filtration rate 28 NRG Serum or plasma glucose measurement (mass/volume) 150 mg/dL 70-105 Serum or plasma calcium measurement (mass/volume) 8.9 mg/dL 8.5-10.1 Serum or plasma total bilirubin measurement (mass/volume) 1.3 mg/dL 0.1-1.0 Serum or plasma alkaline phosphatase measurement (enzymatic activity/volume) 124 U/L 40-136 Serum or plasma aspartate aminotransferase measurement (enzymatic activity/volume) 11 U/L 5-34 Serum or plasma alanine aminotransferase measurement (enzymatic activity/volume) 8 U/L 0-55 Serum or plasma protein measurement (mass/volume) 7.0 g/dL 6.4-8.2 Serum or plasma albumin measurement (mass/volume) 3.9 g/dL 3.2-4.5 Lipid 1996 panel - 09/23/16 07:39 Serum or plasma triglyceride measurement (mass/volume) 158 mg/dL <150 Serum or plasma cholesterol measurement (mass/volume) 189 mg/dL < 200 Serum or plasma cholesterol in HDL measurement (mass/volume) 34 mg/dL 40-60 Cholesterol in LDL [mass/volume] in serum or plasma by direct assay 132 mg/dL 1-129 Serum or plasma cholesterol in VLDL measurement (mass/volume) 32 mg/dL 5-40 Methicillin resistant Staphylococcus aureus (MRSA) screening culture - 09/23/16 07:39 Methicillin resistant Staphylococcus aureus (MRSA) screening culture NEG NRG Capillary blood glucose measurement by glucometer (mass/volume) - 09/23/16 17:20 Capillary blood glucose measurement by glucometer (mass/volume) 105 mg/dL 70-110 Capillary blood glucose measurement by glucometer (mass/volume) - 09/23/16 21:12 Capillary blood glucose measurement by glucometer (mass/volume) 127 mg/dL 70-110 Automated blood complete blood count (hemogram) panel - 09/24/16 05:50 Blood leukocytes automated count (number/volume) 4.9 10*3/uL 4.3-11.0 Blood erythrocytes automated count (number/volume) 3.68 10*6/uL 4.35-5.85 Venous blood hemoglobin measurement (mass/volume) 8.6 g/dL 11.5-16.0 Blood hematocrit (volume fraction) 27 % 35-52 Automated erythrocyte mean corpuscular volume 74 [foz_us] 80-99 Automated erythrocyte mean corpuscular hemoglobin (mass per erythrocyte) 23 pg 25-34 Automated erythrocyte mean corpuscular hemoglobin concentration measurement (mass/volume) 32 g/dL 32-36 Automated erythrocyte distribution width ratio 17.2 % 10.0- 14.5 Automated blood platelet count (count/volume) 214 10*3/uL 130-400 Automated blood platelet mean volume measurement 10.3 [foz_us] 7.4-10.4 Whole blood basic metabolic panel - 09/24/16 05:50 Serum or plasma sodium measurement (moles/volume) 140 mmol/L 135-145 Serum or plasma potassium measurement (moles/volume) 3.6 mmol/L 3.6-5.0 Serum or plasma chloride measurement (moles/volume) 103 mmol/L 98-107 Carbon dioxide 24 mmol/L 21-32 Serum or plasma anion gap determination (moles/volume) 13 mmol/L 5-14 Serum or plasma urea nitrogen measurement (mass/volume) 21 mg/dL 7-18 Serum or plasma creatinine measurement (mass/volume) 1.69 mg/dL 0.60-1.30 Serum or plasma urea nitrogen/creatinine mass ratio 12 NRG Serum or plasma creatinine measurement with calculation of estimated glomerular filtration rate 30 NRG Serum or plasma glucose measurement (mass/volume) 114 mg/dL 70-105 Serum or plasma calcium measurement (mass/volume) 8.5 mg/dL 8.5-10.1 Capillary blood glucose measurement by glucometer (mass/volume) - 09/24/16 05:53 Capillary blood glucose measurement by glucometer (mass/volume) 121 mg/dL 70-110 Encounters ACCT No. Visit Date/Time Discharge Status Pt. Type Provider Facility Loc./Unit Complaint [id number] 05/06/2017 13:00:00 05/06/2017 23:59:59 CLS Preadmit BEENA MIX FACC, ALI FACP CCDS [facility] CARD CAD I25.10 [id number] 01/30/2017 10:00:00 01/30/2017 23:59:59 CLS [facility]read[facility] [id number] 10/31/2016 09:38:00 01/29/2017 00:01:00 DIS Outpatient [facility] [id number] 01/05/2017 12:09:00 01/05/2017 23:59:59 CLS Outpatient BEENA MIX FACC, ALI FACP CCDS [facility] CARD CAD,HTN,HLP [id number] 09/23/2016 06:50:00 09/24/2016 10:20:00 DIS Outpatient BEENA MIX FACC, ALI FACP CCDS [facility] CATH DILATED CARDIOMYOPATHY,CAD,HL,HTN [id number] 09/12/2016 08:33:00 09/12/2016 23:59:59 CLS Outpatient BEENA MIX FACC, ALI FACP CCDS [facility] CARD CKD 2, CAD [id number] 09/08/2016 16:02:00 09/08/2016 23:59:59 CLS Outpatient OLVIN ZUNIGA MD [facility] RAD SOB [id number] 04/10/2016 09:12:00 04/10/2016 10:52:00 DIS Outpatient CARINE BERNSTEIN MD [facility] REHAB CVA [id number] 02/12/2016 16:16:00 02/12/2016 17:46:00 DIS Emergency DENICE SHAH APRN [facility] ER HEADACHE [id number] 02/04/2016 11:03:00 02/06/2016 15:15:00 DIS Inpatient CARINE BERNSTEIN MD [facility] 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 [id number] 12/11/2015 20:56:00 12/13/2015 10:15:00 DIS Inpatient VERONICA MIX, ZANDER Terry [facility] 4TH TIA,UTI [id number] 12/10/2015 07:42:00 12/10/2015 11:40:00 DIS Outpatient BOBBI MIX, CHARLOTTE Corral [facility] ER HEADACHE, N/V [id number] 10/13/2015 16:20:00 10/13/2015 18:25:00 DIS Emergency LOAN EPSTEIN [facility] ER L LEG PAIN [id number] 08/07/2014 07:39:00 08/07/2014 23:59:59 CLS Outpatient SILVINA MIX, LEON Sauceda [facility] CARD TIA [id number] 07/29/2014 12:01:00 07/29/2014 13:40:00 DIS Emergency EFRAIN MIX, MEHRDAD Terry [facility] ER SLURRED SPEECH,FACIAL NUMBNESS [id number] 07/29/2014 13:42:00 Document Registration [id number] 02/05/2012 10:54:00 Document Registration [id number] 12/26/2009 06:25:00 Document Registration [id number] 04/20/2009 10:08:00 Document Registration
[2019-02-28] MEDS ORDERED: FUROSEMIDE 40 MG/4 ML INJ (LASIX) IVP ONE (12:00)
[2019-02-28] MEDS ORDERED: ENOXAPARIN 100 MG/1 ML (LOVENOX) SYR SC ONE (12:00)
[2019-02-28] MEDS ORDERED: cefTRIAXone FOR IV USE 1,000 MG in WATER (STERILE) FOR INJECTION 10 ML IV ONE (12:00)
[2019-02-28] MEDS ORDERED: CATHETER FLUSH 10 ML SYR IV PRN ×2 (13:45)
[2019-02-28] MEDS ORDERED: NITROGLYCERIN 0.4 MG SL TABS BTL 25'S SL PRN (13:45)
[2019-02-28] MEDS ORDERED: morphine INJ 4 MG/ML 1 ML (VIAL/SYRINGE) IV PRN (13:45)
[2019-02-28] MEDS ORDERED: PRAV10TA PO (14:00)
[2019-02-28] MEDS ORDERED: MULT-642 PO (14:00)
[2019-02-28] MEDS ORDERED: SENN-145 PO (14:00)
[2019-02-28] MEDS ORDERED: ACET-93 PO (14:00)
[2019-02-28] MEDS: CATHETER FLUSH 10 ML SYR IV SCH ×2 (14:11→22:03)
[2019-02-28 14:13] LABS: CHOLESTEROL 156 MG/DL (< 200); HDL CHOLESTEROL 30 MG/DL (40-60); TRIGLYCERIDES 157 MG/DL (<150); VLDL CHOLESTEROL 31 MG/DL (5-40)
--- NOTE | 2019-02-28 14:30 | NUR ---
SPOKE WITH PT WELL GOING OVER THE EXT MED HISTORY TO COMPLETE THE MED REC. 09-07-18 COREG #180/90DS, PT SAYS SHE IS NOT OUT OF THIS MEDICATION AND IS TAKING IT BID. JANUVIA 100MG: TAKES 1/2 TAB DAILY OTC MEDICATIONS: ASPIRIN 81M HS MULTIVITAMIN: 1 DAILY FISH OIL: 1 DAILY SENNA S: 1 HS ACETAMINOPHEN 500M TS Q 6 H PRN
--- NOTE | 2019-02-28 15:30 | Diagnostic Imaging Report ---
INDICATION: Fatigue and shortness of air. TIME OF EXAM: 9:28 AM Correlation is made with prior study of 09/08/2016. FINDINGS: The heart is enlarged. There is central congestion but no overt failure. No significant effusion or pneumothorax is seen. IMPRESSION: Cardiomegaly and central congestion. Dictated by: Dictated on workstation # [id number]
[2019-02-28] MEDS: FUROSEMIDE 40 MG/4 ML INJ (LASIX) IV SCH (17:24)
--- NOTE | 2019-02-28 17:43 | Consultation-Cardiology ---
HPI-Cardiology Cardiology Consultation Date of Consultation 02/28/19 Date of Admission Time Seen by Provider: 17:37 Indication: Short of breath HPI 73-year-old lady with history of coronary artery disease, congestive heart failure, chronic compensated left ventricular systolic dysfunction, chronic renal insufficiency, was having increasing shortness of breath waxing and waning recently, progressed to the point that she has significant dyspnea at rest and with minimal exertion no palpitation. No syncope, had some chest pressure usually due to her shortness of breath. Came into the emergency room for evaluation noted to have elevated troponin level. Currently sitting upright in bed, feeling better, reporting improvement in her shortness of breath, no chest pain was reported. Home Medications & Allergies Allergies: Coded Allergies: Sulfa (Sulfonamide Antibiotics) (Verified Allergy, Unknown, 09/01/05) Home Medication List Reviewed: Yes DNH-[id number]-Unozfb Hx Patient Social History Marital Status: Employed/Student: retired Alcohol Use: Denies Use Recreational Drug Use: No Smoking Status: Never a Smoker 2nd Hand Smoke Exposure: No Recent Foreign Travel: No Recent Infectious Disease Expo: No Recent Hopitalizations: Yes (CVA 02/02/16) Immunizations Up To Date Tetanus Booster (TDap): Less than 5yrs Date of Pneumonia Vaccine: Jun 12, 2014 Date of Influenza Vaccine: Apr 25, 2016 Past Medical History discussed below Family Medical History Significant Family History: Hypertension Family Medical Hx noncontributory Review of Systems-General Review of Systems Constitutional: see HPI, malaise, weakness, other (easily fatigues) EENTM: see HPI Respiratory: see HPI; No cough; dyspnea on exertion; No hemoptysis, No orthopnea, No phlegm; short of breath; No stridor, No wheezing, No other Cardiovascular: see HPI, chest pain, edema; No Hx of Intervention, No p alpitations, No syncope, No vascular heart diseas, No other Gastrointestinal: no symptoms reported Genitourinary: no symptoms reported Musculoskeletal: no symptoms reported, muscle weakness Skin: no symptoms reported Psychiatric/Neurological: No Symptoms Reported, Anxiety Reviewed Test Results Reviewed Test Results Lab Laboratory Tests Test 02/28/19 09:17 02/28/19 10:15 02/28/19 11:47 02/28/19 13:42 Range/Units White Blood Count 7.0 4.3-11.0 10^3/uL Red Blood Count 3.83 L 4.35-5.85 10^6/uL Hemoglobin 10.1 L 11.5-16.0 G/DL Hematocrit 31 L 35-52 % Mean Corpuscular Volume 80 80-99 FL Mean Corpuscular Hemoglobin 26 25-34 PG Mean Corpuscular Hemoglobin Concent 33 32-36 G/DL Red Cell Distribution Width 16.6 H 10.0-14.5 % Platelet Count 218 130-400 10^3/uL Mean Platelet Volume 10.6 H 7.4-10.4 FL Neutrophils (%) (Auto) 77 H 42-75 % Lymphocytes (%) (Auto) 15 12-44 % Monocytes (%) (Auto) 7 0-12 % Eosinophils (%) (Auto) 1 0-10 % Basophils (%) (Auto) 1 0-10 % Neutrophils # (Auto) 5.3 1.8-7.8 X 10^3 Lymphocytes # (Auto) 1.0 1.0-4.0 X 10^3 Monocytes # (Auto) 0.5 0.0-1.0 X 10^3 Eosinophils # (Auto) 0.1 0.0-0.3 10^3/uL Basophils # (Auto) 0.0 0.0-0.1 10^3/uL Prothrombin Time 15.4 H 12.2-14.7 SEC INR Comment 1.2 0.8-1.4 Activated Partial Thromboplast Time 26 24-35 SEC D-Dimer 1.85 H 0.00-0.49 UG/ML Sodium Level 140 135-145 MMOL/L Potassium Level 4.7 3.6-5.0 MMOL/L Chloride Level 106 98-107 MMOL/L Carbon Dioxide Level 21 21-32 MMOL/L Anion Gap 13 5-14 MMOL/L Blood Urea Nitrogen 24 H 7-18 MG/DL Creatinine 2.05 H 0.60-1.30 MG/DL Estimat Glomerular Filtration Rate 24 BUN/Creatinine Ratio 12 Glucose Level 203 H 70-105 MG/DL Calcium Level 9.3 8.5-10.1 MG/DL Corrected Calcium 9.5 8.5-10.1 MG/DL Magnesium Level 2.0 1.8-2.4 MG/DL Total Bilirubin 1.0 0.1-1.0 MG/DL Aspartate Amino Transf (AST/SGOT) 22 5-34 U/L Alanine Aminotransferase (ALT/SGPT) 15 0-55 U/L Alkaline Phosphatase 101 40-136 U/L Myoglobin 63.4 10.0-92.0 NG/ML Troponin I 0.328 *H 0.338 *H <0.028 NG/ML C-Reactive Protein High Sensitivity 2.09 H 0.00-0.50 MG/DL B-Type Natriuretic Peptide 2616.0 H <100.0 PG/ML Total Protein 7.1 6.4-8.2 GM/DL Albumin 3.8 3.2-4.5 GM/DL Urine Color YELLOW Urine Clarity CLEAR Urine pH 5 5-9 Urine Specific [place] 1.020 1.016-1.022 Urine Protein 3+ H NEGATIVE Urine Glucose (UA) NEGATIVE NEGATIVE Urine Ketones NEGATIVE NEGATIVE Urine Nitrite POSITIVE H NEGATIVE Urine Bilirubin NEGATIVE NEGATIVE Urine Urobilinogen 1 NORMAL MG/DL Urine Leukocyte Esterase 3+ H NEGATIVE Urine RBC (Auto) 1+ H NEGATIVE Urine RBC RARE /HPF Urine WBC 5-10 H /HPF Urine Squamous Epithelial Cells 2-5 /HPF Urine Crystals NONE /LPF Urine Bacteria FEW H /HPF Urine Casts NONE /LPF Urine Mucus NEGATIVE /LPF Urine Culture Indicated YES Triglycerides Level 157 H <150 MG/DL Cholesterol Level 156 < 200 MG/DL LDL Cholesterol Direct 105 1-129 MG/DL VLDL Cholesterol 31 5-40 MG/DL HDL Cholesterol 30 L 40-60 MG/DL Test 02/28/19 15:20 Range/Units Troponin I 0.348 *H <0.028 NG/ML Physical Exam Physical Exam Vital Signs Vital Signs - First Documented 02/28/19 08:47 Temp 97.6 Pulse 81 Resp 19 B/P (MAP) 146/87 (106) Pulse Ox 97 O2 Delivery Room Air Capillary Refill : Less Than 3 Seconds Height, Weight, BMI Height: 5'2.00" Weight: 200lbs. 0.0oz. [id number]; 36.6 BMI Method:Stated General Appearance: WD/WN, Anxious HEENT: PERRL/EOMI, Normal ENT Inspection, Pharynx Normal Neck: Normal Inspection; No JVD Respiratory: Lungs Clear, Normal Breath Sounds, No Accessory Muscle Use, No Respiratory Distress, Other (respirations are shallow with no crackles or wheezes) Cardiovascular: Regular Rate, Rhythm, No Gallop, No Murmur, Systolic Murmur, Other (mild edema over the left lower extremity) Gastrointestinal: Normal Bowel Sounds, Non Tender, Soft Extremity: Normal Capillary Refill, Non Tender, Pedal Edema (left lower leg and foot) Neurologic/Psychiatric: Alert, Oriented x3, No Motor/Sensory Deficits, 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 Continue with diuretics. Continue with Lovenox and monitor tolerance and response. Non-ST elevation myocardial infarction, had extensive cardiac history, last cardiac catheterization done in September 2016 with PTCA for in-stent restenosis in the right coronary artery and stenting to the distal right coronary artery, had ostial LAD stenosis that was not intervened. Continue to monitor at this time. Monitor chronic, Continue on Aspirin and Lovenox. History of CVA/TIA Multiple Times. Diagnosed with Thromboembolic R MCA Stroke, Currently Monitored and Followed. Acute on chronic renal failure, chronic kidney disease stage IV. Continue to monitor renal function Mild Bilateral Carotid Stenosis, Followed by Dr. Haywood Hypertension, Poorly Controlled, Restart Home Medication Monitor Blood Pressure Hyperlipidemia, Treated with Simvastatin, Monitor Lipids Intolerant to FAITH Inhibitor with Co History of lower gastrointestinal bleeding due to diverticulitis in August 2005, monitored and followed by primary care physician Obesity with a body mass index of approximately 36. 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 This is being managed by Dr Solis Chronic anemia, followed by Dr Solis Clinical Quality Measures DVT/VTE Risk/Contraindication: Risk Factor Score Per Nursin RFS Level Per Nursing on Admit: 4+=Very High LEI CABEZAS MD Feb 28, 2019 17:43
--- NOTE | 2019-02-28 19:15 | History & Physical ---
History of Present Illness History of Present Illness Reason for visit/HPI 73 yo F admitted for chest discomfort found to have elevated troponin, elevated BNP, and acute kidney failure. She does have a history of CAD. Patient reports her discomfort started about a week ago but on Thursday she felt great: cleaned the house, made supper, etc so she felt like she beat the virus or whatever was making her ill. The following day she didn't do much because she felt ill again. Thursday, day of admission she felt even worse and told her she can't keep doing this and went to the ER. Pt was going to come to [facility] for left foot swelling but this has improved. This afternoon she reports that she is feeling much better and does not want to be in the hospital much longer. She denies any issues urinating or having bowel movements. Denies any bleeding. Date of Admission Feb 28, 2019 at 12:26 Date Seen by a Provider: Feb 28, 2019 Time Seen by a Provider: 19:00 I consulted on this patient on 02/28/19 19:11 Attending Physician Mendez Little MD Admitting Physician [place],Local Physician Consult Dr. Lopez Allergies and Home Medications Allergies Coded Allergies: Sulfa (Sulfonamide Antibiotics) (Verified Allergy, Unknown, 09/01/05) Home Medications Acetaminophen 500 Mg Tablet, 1,000 MG PO Q6H PRN for PAIN-MILD, (Reported) Aspirin 81 Mg Tablet.dr, 81 MG PO HS, (Reported) Carvedilol 12.5 Mg Tablet, 12.5 MG PO BID, (Reported) Clopidogrel Bisulfate 75 Mg Tablet, 75 MG PO DAILY, (Reported) Furosemide 20 Mg Tablet, 20 MG PO DAILY, (Reported) Losartan Potassium 100 Mg Tablet, 100 MG PO DAILY, (Reported) Multivitamin 1 Each Tablet, 1 EACH PO DAILY, (Reported) [place] 3 Polyunsat Fatty Acids 1,000 Mg Cap, 1,000 MG PO DAILY, (Reported) Omeprazole 20 Mg Capsule.dr, 20 MG PO DAILY, (Reported) Pravastatin Sodium 10 Mg Tablet, 10 MG PO HS, (Reported) Sennosides/Docusate Sodium 1 Each Tablet, 1 EACH PO HS PRN for CONSTIPATION-6TH LINE, (Reported) Sitagliptin Phosphate 100 Mg Tablet, 50 MG PO DAILY, (Reported) TAKES 1/2 OF A (100 MG) TABLET Patient Home Medication List Home Medication List Reviewed: Yes Past Qryvliy-Sfdidg-Pcyreg Hx Patient Social History Marrital Status: Employed/Student: retired Alcohol Use: Denies Use Recreational Drug Use: No Smoking Status: Never a Smoker 2nd Hand Smoke Exposure: No Recent Foreign Travel: No Contact w/other who traveled: No Recent Hopitalizations: Yes (CVA 02/02/16) Recent Infectious Disease Expo: No Immunizations Up To Date Tetanus Booster (TDap): Less than 5yrs Date of Pneumonia Vaccine: Jun 12, 2014 Date of Influenza Vaccine: Apr 25, 2016 Seasonal Allergies Seasonal Allergies: No Surgeries Yes Cardiac, Coronary Stent, Gallbladder, Hysterectomy Respiratory No Currently Using CPAP: No Currently Using BIPAP: No Cardiovascular Yes Cardiomyopathy (ischemic cardiomyopathy with systolic dysfunction), Coronary Artery Disease, High Cholesterol, Hypertension, Valvular Heart Disease Neurological Yes Stroke, TIA Reproductive System : No Hx Reproductive Disorders: No Female Reproductive Disorders: Denies 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, 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 Genitourinary No Gastrointestinal Yes Gastroesophageal Reflux, Diverticulosis Musculoskeletal Yes Arthritis Endocrine History of Endocrine Disorders: Yes Endocrine Disorders: Diabetes, Non-Insulin dep HEENT History of HEENT Disorders: No Cancer No Psychosocial History of Psychiatric Problem: No Integumentary History of Skin or Integumenta: No Blood Transfusions History of Blood Disorders: Yes (Anemia- GI bleed associated) Adverse Reaction to a Blood Tr: No Family Medical History Significant Family History: Hypertension Review of Systems Review of Systems General: No Chills, No Night Sweats HEENT: No Head Aches Pulmonary: Dyspnea; No Cough Cardiovascular: Chest Pain, Edema; No: Palpitations Gastrointestinal: No: Nausea, Vomiting, Abdominal Pain Genitourinary: No Dysuria, No Frequency Neurological: Weakness Physical Exam Vital Signs Vital Signs - First Documented 02/28/19 08:47 Temp 97.6 Pulse 81 Resp 19 B/P (MAP) 146/87 (106) Pulse Ox 97 O2 Delivery Room Air Capillary Refill : Less Than 3 Seconds Height, Weight, BMI Height: 5'2.00" Weight: 200lbs. 0.0oz. 90.474289eh; 36.6 BMI Method:Stated General Appearance: No Apparent Distress (tearful at times) HEENT: PERRL/EOMI Neck: Non Tender, Supple Respiratory: Chest Non Tender, Lungs Clear, Decreased Breath Sounds (bases) Cardiovascular: Regular Rate, Rhythm Gastrointestinal: Normal Bowel Sounds, Non Tender, Soft Rectal: Deferred Back: Normal Inspection, No CVA Tenderness Extremity: Non Tender, No Calf Tenderness, Other (edema dorsum of feet- improved) Neurologic/Psychiatric: Alert, Oriented x3, No Motor/Sensory Deficits, Normal Mood/Affect Skin: Normal Color, Warm/Dry Assessment/Plan Assessment/Plan Admission Dx NSTEMI chest discomfort acute kidney failure Admission Status: Inpatient Order (span 2 midnights) Reason for Inpatient Admission: Patient admitted for chest discomfort with elevated troponin level. Creatinine is also greater than 2. With multiple co-morbidities I expect her to stay over 2 midnights. Assessment and Plan Admission 02/28/19 giving lasix to help diurese which in turn should help with the elevated creatinine. Lower Ext doppler negative for DVT- considered ordering a CTA to look for a PE but Cr will not support this. Therapeutic lovenox started for NSTEMI which will also cover PE. After examining her last evening it is less likely she has a PE. -Rocephin for her UTI. -Dr. Lopez consulted. Appreciate recommendations. Problems: (1) Urinary tract infection Qualifiers: Qualified Codes: N39.0 - Urinary tract infection, site not specified (2) Chest pain Qualifiers: Qualified Codes: R07.9 - Chest pain, unspecified (3) Non-ST elevation myocardial infarction (NSTEMI) (4) Dyspnea Qualifiers: Qualified Codes: R06.00 - Dyspnea, unspecified (5) Acute on chronic systolic (congestive) heart failure (6) DMII (diabetes mellitus, type 2) Qualifiers: Assessment & Plan: holding oral meds. SSI A (7) Acute on chronic kidney failure Assessment & Plan: baseline creatinine around 1.5 avoid nephrotoxic agents Clinical Quality Measures DVT/VTE Risk/Contraindication: Risk Factor Score Per Nursin RFS Level Per Nursing on Admit: 4+=Very High MENDEZ LITTLE MD Feb 28, 2019 19:15
[2019-02-28] MEDS ORDERED: NON-FORMULARY MEDICATION 1 EA EA (Pravastatin Sodium 10 MG) PO SCH (21:00)
[2019-02-28] MEDS: SIMvastatin 10 MG (ZOCOR) TAB PO SCH (21:56)
[2019-02-28] MEDS: CARVEDILOL 12.5 MG (COREG) TABLET PO SCH (21:57)
[2019-02-28] MEDS: inSUlin ASPART (NovoLOG) 1 UNIT/0.01 ML (CHARGE PER UNIT) SC SCH (22:03)
[2019-03-01] VITALS (15 sets, daily range): BP systolic 114–160; BP diastolic 56–111
[2019-03-01 03:48] LABS: HEMOGLOBIN 9.7 G/DL (11.5-16.0); MEAN PLATELET VOLUME 10.6 FL (7.4-10.4); RED CELL DISTRIBUTION WIDTH 16.8 % (10.0-14.5); WHITE BLOOD COUNT 7.2 10^3/uL (4.3-11.0)
[2019-03-01 04:08] LABS: ALBUMIN 3.7 GM/DL (3.2-4.5); BILIRUBIN,TOTAL 0.7 MG/DL (0.1-1.0); CALCIUM 9.5 MG/DL (8.5-10.1); CREATININE SERUM 2.07 MG/DL (0.60-1.30); MAGNESIUM 1.8 MG/DL (1.8-2.4); PHOSPHORUS 3.7 MG/DL (2.3-4.7); POTASSIUM 3.6 MMOL/L (3.6-5.0); TOTAL PROTEIN 6.7 GM/DL (6.4-8.2)
[2019-03-01] MEDS: CATHETER FLUSH 10 ML SYR IV SCH ×3 (06:13→20:00)
[2019-03-01] MEDS ORDERED: LINAGLIPTIN (TRADJENTA) 5 MG TABLET PO SCH (07:00)
--- NOTE | 2019-03-01 08:42 | Progress Note - Cardiology ---
Cardiology SOAP Progress Note Subjective: Sitting up in bed. States she feels much better than yesterday. Reports LE swelling has resolved. No c/o CP, dyspnea, palpitations, syncope or near syncope. Today is her anniversary. Objective: I&O/Vital Signs 03/01/19 03/01/19 03/01/19 03/01/19 01:00 01:00 02:00 03:00 Pulse 71 71 76 68 Resp 19 22 14 B/P (MAP) 133/65 (87) 139/71 (93) 122/71 (88) Pulse Ox 91 92 91 O2 Delivery Room Air Room Air Room Air 03/01/19 03/01/19 03/01/19 03/01/19 04:00 04:00 05:00 06:00 Pulse 73 78 69 Resp 18 18 16 B/P (MAP) 136/69 (91) 141/64 (89) 138/56 (83) Pulse Ox 93 92 93 91 O2 Delivery Room Air Room Air Room Air Room Air 03/01/19 03/01/19 03/01/19 03/01/19 07:00 07:00 08:00 08:43 Temp 97.9 Pulse 65 66 78 Resp 16 16 B/P (MAP) 139/67 (91) 155/79 (104) Pulse Ox 92 90 O2 Delivery Room Air Room Air 03/01/19 03/01/19 03/01/19 09:00 10:00 10:59 Temp 98.1 Pulse 74 71 70 Resp 21 14 20 B/P (MAP) 160/111 (127) 146/89 (108) 147/68 (94) Pulse Ox 95 94 96 O2 Delivery Room Air Room Air Room Air 03/01/19 00:00 Intake Total 450 ml Output Total 2100 ml Balance -1650 ml Weight (Pounds): 200 Weight (Ounces): 0.0 Weight (Calculated Kilograms): 90.711957 Constitutional: AAO x 3, well-developed, well-nourished Respiratory: No accessory muscle use, No respiratory distress; chest expansion is symmetric, chest is bilaterally symmetric, lungs clear to auscultation Cardiovascular: regular rate-rhythm; No JVD; S1 and S2 Gastrointestional: No tender; soft, round, audible bowel sounds Extremities: no lower extremity edema bilateral Neurologic/Psychiatric: grossly intact Skin: warm/dry; No rash on exposed areas, No ulcerations on exposed areas Results/Procedures: Labs Laboratory Tests 02/28/19 13:42: Triglycerides Level 157H, Cholesterol Level 156, LDL Cholesterol Direct 105, VLDL Cholesterol 31, HDL Cholesterol 30L 02/28/19 15:20: Troponin I 0.348*H 02/28/19 19:05: Troponin I 0.390*H 02/28/19 21:59: Glucometer 193H 03/01/19 03:26: White Blood Count 7.2, Red Blood Count 3.71L, Hemoglobin 9.7L, Hematocrit 30L, Mean Corpuscular Volume 80, Mean Corpuscular Hemoglobin 26, Mean Corpuscular Hemoglobin Concent 33, Red Cell Distribution Width 16.8H, Platelet Count 221, Mean Platelet Volume 10.6H, Sodium Level 144, Potassium Level 3.6, Chloride Level 105, Carbon Dioxide Level 23, Anion Gap 16H, Blood Urea Nitrogen 25H, Creatinine 2.07H, Estimat Glomerular Filtration Rate 23, BUN/Creatinine Ratio 12, Glucose Level 150H, Calcium Level 9.5, Corrected Calcium 9.7, Phosphorus Level 3.7, Magnesium Level 1.8, Total Bilirubin 0.7, Aspartate Amino Transf (AST/SGOT) 8, Alanine Aminotransferase (ALT/SGPT) 14, Alkaline Phosphatase 103, Troponin I 0.379*H, Total Protein 6.7, Albumin 3.7, Triglycerides Level 197H, Cholesterol Level 151, LDL Cholesterol Direct 103, VLDL Cholesterol 39, HDL Cholesterol 25L, Thyroid Stimulating Hormone (TSH) 0.03L 03/01/19 09:22: Glucometer 167H A/P: Assessment: Acute on chronic systolic congestive heart failure - clinically improved Ischemic cardiomyopathy - LVEF 15% on echo of Aug 2016 Mild troponin elev due to CHF: Type 2 [place] UTI - management per Medical Services Most recent cardiac catheterization done in September 2016 with PTCA for in-stent restenosis in the right coronary artery and stenting to the distal right coronary artery, had ostial LAD stenosis that was not intervened Echocardiogram of Sep 12, 2016 showed LVEF 15%. Mild to mod MR. Mild TR. PASP 50 mmHg Pulmonary hypertension History of multiple CVA/TIA. Diagnosed with Thromboembolic R MCA Stroke - followed by neurology services Acute on chronic renal failure, chronic kidney disease stage IV - reduce diuretics Mild Bilateral Carotid Stenosis Hypertension Hyperlipidemia - statin tx Intolerant to FAITH Inhibitor History of lower gastrointestinal bleeding due to diverticulitis in August 2005 Obesity with a body mass index of approximately 36. Maturity onset DM - followed by her PCP Chronic anemia, followed by Dr Mendez Barajas Plan: Acute on chronic systolic CHF - continue diuretics ICM - echocardiogram today to re-eval LVEF Continue anti-platelet tx with ASA and Plavix Monitor lab closely OK to transfer to medical floor with tele Physician Assessment Physician Assessment Shortness of breath improving, no cp or palp or syncope. Gen malaise present Lungs: good bilat air entry Cor: reg Ext: no c/c/e A&R * As documented in our note above that I updated (italics) and as noted below * Monitor labs * Repeat echo * I spoke with her and her and answered questions FRANTZ CORLEY Mar 01, 2019 08:42 VALERIE HARGROVE MD FACP FAC CCDS Mar 01, 2019 12:14
[2019-03-01] MEDS ORDERED: NON-FORMULARY MEDICATION 1 EA EA (Sitagliptin Phosphate (Januvia) 50 MG) PO SCH (09:00)
[2019-03-01] MEDS ORDERED: FUROSEMIDE 20 MG (LASIX) TAB PO SCH (09:00)
[2019-03-01] MEDS: inSUlin ASPART (NovoLOG) 1 UNIT/0.01 ML (CHARGE PER UNIT) SC SCH ×2 (09:23→20:11)
[2019-03-01] MEDS: OMEGA 3 (FISH OIL) 1000 MG CAP PO SCH (09:24)
[2019-03-01] MEDS: CARVEDILOL 12.5 MG (COREG) TABLET PO SCH ×2 (09:24→19:59)
[2019-03-01] MEDS: PANTOPRAZOLE 40 MG (PROTONIX) TAB PO SCH (09:24)
[2019-03-01] MEDS: FUROSEMIDE 40 MG/4 ML INJ (LASIX) IV SCH (09:24)
[2019-03-01] MEDS: ASPIRIN E.C. 81 MG (ECOTRIN) TAB PO SCH (09:25)
[2019-03-01] MEDS: CLOPIDOGREL 75 MG (PLAVIX) TABLET PO SCH (09:25)
[2019-03-01] MEDS: LOSARTAN 100 MG (COZAAR) TABLET PO SCH (09:25)
--- NOTE | 2019-03-01 10:11 | NUR ---
REPORT CALLED TO ALEXUS MATOS. PT SITTING ON SIDE OF BED EATING BREAKFAST WITH NO COMPLAINTS.
--- NOTE | 2019-03-01 10:40 | Diagnostic Imaging Report ---
EXAMINATION: Portable AP chest at 0351 hours. INDICATION: Dyspnea. FINDINGS: The cardiomegaly noted on the prior exam of 02/28/2019 is again evident and no different. The central pulmonary vascularity may be slightly prominent. The lungs are generally clear; however, the retrocardiac region is not well penetrated and difficult to assess. The mediastinum is not widened. The osseous structures are intact. IMPRESSION: Stable chest. There has been no adverse change since the prior exam. Dictated by: Dictated on workstation # [id number]
--- NOTE | 2019-03-01 11:15 | NUR ---
Patient transferred to [facility] per W/C accompanied by ICU staff. Patient and family notified and understand transfer. Personal belongings with patient. Report given to THIS RN BY GLASS PRODUCTION MACHINE OPERATOR AT [id number].
[2019-03-01] MEDS ORDERED: cefTRIAXone 1,000 MG/SWFI 10 ML IV PUSH IV SCH ×2 (12:00)
[2019-03-01] MEDS ORDERED: DOCUSATE SODIUM PO PRN (14:00)
[2019-03-01] MEDS ORDERED: SENNOSIDES PO PRN (14:00)
--- NOTE | 2019-03-01 14:01 | Progress Note ---
Subjective Subjective Date Seen by Provider: Mar 01, 2019 Time Seen by Provider: 08:30 73 yo F reports she is feeling better from admission- Today is her wedding anniversary and was hoping to go to [facility]. Denies chest pain, nausea, vomiting. Review of Systems General: No Chills, No Night Sweats HEENT: No Head Aches Pulmonary: Dyspnea; No Cough Cardiovascular: Chest Pain, Edema; No: Palpitations Gastrointestinal: No: Nausea, Vomiting, Abdominal Pain Genitourinary: No Dysuria, No Frequency Neurological: Weakness Objective Exam Vital Signs Vital Signs Date Time Temp Pulse Resp B/P (MAP) Pulse Ox O2 Delivery O2 Flow Rate FiO2 03/01/19 13:04 98.1 70 20 147/68 (94) 96 Room Air 03/01/19 11:15 93 Room Air 03/01/19 10:59 98.1 70 20 147/68 (94) 96 Room Air 03/01/19 10:00 71 14 146/89 (108) 94 Room Air 03/01/19 09:00 74 21 160/111 (127) 95 Room Air 03/01/19 08:43 97.9 03/01/19 08:00 78 16 155/79 (104) 90 Room Air 03/01/19 08:00 93 Room Air 03/01/19 07:00 66 16 139/67 (91) 92 Room Air 03/01/19 07:00 65 03/01/19 06:00 69 16 138/56 (83) 91 Room Air 03/01/19 05:00 78 18 141/64 (89) 93 Room Air 03/01/19 04:00 73 18 136/69 (91) 92 Room Air 03/01/19 04:00 93 Room Air 03/01/19 03:00 68 14 122/71 (88) 91 Room Air 03/01/19 02:00 76 22 139/71 (93) 92 Room Air 03/01/19 01:00 71 03/01/19 01:00 71 19 133/65 (87) 91 Room Air 03/01/19 00:00 79 18 114/65 (81) 92 Room Air 03/01/19 00:00 94 Room Air 02/28/19 23:00 71 25 123/70 (87) 92 Room Air 02/28/19 22:00 86 17 146/89 (108) 95 Room Air 02/28/19 21:00 77 20 140/71 (94) 94 Room Air 02/28/19 20:00 79 18 117/52 (73) 93 Room Air 02/28/19 20:00 96 Room Air 02/28/19 19:34 98.5 84 20 144/70 (94) 95 Room Air 02/28/19 19:00 84 02/28/19 18:00 76 24 167/109 (128) 96 Room Air 02/28/19 17:00 72 25 170/104 (126) 95 Room Air 02/28/19 16:00 95 Room Air 02/28/19 16:00 77 21 160/95 (116) 93 Room Air 02/28/19 15:00 75 11 152/89 (110) 96 Room Air I & O 03/01/19 07:00 Intake Total 600 ml Output Total 3350 ml Balance -2750 ml General Appearance: No Apparent Distress (tearful at times) HEENT: PERRL/EOMI Neck: Non Tender, Supple Respiratory: Chest Non Tender, Lungs Clear, Decreased Breath Sounds (bases) Cardiovascular: Regular Rate, Rhythm Gastrointestinal: Normal Bowel Sounds, Non Tender, Soft Rectal: Deferred Back: Normal Inspection, No CVA Tenderness Extremity: Non Tender, No Calf Tenderness, Other (edema dorsum of feet- improved) Neurologic/Psychiatric: Alert, Oriented x3, No Motor/Sensory Deficits, Normal Mood/Affect Skin: Normal Color, Warm/Dry Results Lab Laboratory Tests 02/28/19 15:20: Troponin I 0.348*H 02/28/19 19:05: Troponin I 0.390*H 02/28/19 21:59: Glucometer 193H 03/01/19 03:26: Troponin I 0.379*H, White Blood Count 7.2, Red Blood Count 3.71L, Hemoglobin 9.7L, Hematocrit 30L, Mean Corpuscular Volume 80, Mean Corpuscular Hemoglobin 26, Mean Corpuscular Hemoglobin Concent 33, Red Cell Distribution Width 16.8H, Platelet Count 221, Mean Platelet Volume 10.6H, Sodium Level 144, Potassium Level 3.6, Chloride Level 105, Carbon Dioxide Level 23, Anion Gap 16H, Blood Urea Nitrogen 25H, Creatinine 2.07H, Estimat Glomerular Filtration Rate 23, BUN/Creatinine Ratio 12, Glucose Level 150H, Calcium Level 9.5, Corrected Calcium 9.7, Phosphorus Level 3.7, Magnesium Level 1.8, Total Bilirubin 0.7, Aspartate Amino Transf (AST/SGOT) 8, Alanine Aminotransferase (ALT/SGPT) 14, Alkaline Phosphatase 103, Total Protein 6.7, Albumin 3.7, Triglycerides Level 197H, Cholesterol Level 151, LDL Cholesterol Direct 103, VLDL Cholesterol 39, HDL Cholesterol 25L, Thyroid Stimulating Hormone (TSH) 0.03L 03/01/19 09:22: Glucometer 167H Assessment/Plan Assessment/Plan Admission Dx NSTEMI chest discomfort acute kidney failure Assessment and Plan Admission 02/28/19 giving lasix to help diurese which in turn should help with the elevated creatinine. Lower Ext doppler negative for DVT- considered ordering a CTA to look for a PE but Cr will not support this. Therapeutic lovenox started for NSTEMI which will also cover PE. After examining her last evening it is less likely she has a PE. -Rocephin for her UTI. -Dr. Lopez consulted. Appreciate recommendations. 03/01/19- doing better. Still no chest pain. lovenox continued. Cr still 2. Would like Cr to improve prior to discharge. restarting her stool softner for constipation. Echo to be done today. Dispo: pt is wanting to home as soon as possible. Problems: (1) Urinary tract infection Qualifiers: Qualified Codes: N39.0 - Urinary tract infection, site not specified (2) Chest pain Qualifiers: Qualified Codes: R07.9 - Chest pain, unspecified (3) Non-ST elevation myocardial infarction (NSTEMI) (4) Dyspnea Qualifiers: Qualified Codes: R06.00 - Dyspnea, unspecified (5) Acute on chronic systolic (congestive) heart failure (6) DMII (diabetes mellitus, type 2) Qualifiers: Assessment & Plan: holding oral meds. SSI A (7) Acute on chronic kidney failure Assessment & Plan: baseline creatinine around 1.5 avoid nephrotoxic agents Admission Dx NSTEMI chest discomfort acute kidney failure Clinical Quality Measures Admission Status Admission Dx NSTEMI chest discomfort acute kidney failure DVT/VTE Risk/Contraindication: Risk Factor Score Per Nursin RFS Level Per Nursing on Admit: 4+=Very High JOSHUA LITTLE MD Mar 01, 2019 14:01
[2019-03-01] MEDS: ENOXAPARIN 100 MG/1 ML (LOVENOX) SYR SC SCH (14:10)
[2019-03-01] MEDS: cefTRIAXone 1,000 MG/SWFI 10 ML IV PUSH IV SCH ×2 (14:10)
[2019-03-01] MEDS ORDERED: SENNA W/DOCUSATE (SENOKOT S) TABLET PO PRN (14:15)
[2019-03-01] MEDS: SIMvastatin 10 MG (ZOCOR) TAB PO SCH (19:58)
[2019-03-02 00:40] VITALS: BP 117/69
[2019-03-02 04:47] VITALS: BP 123/71
[2019-03-02 05:37] LABS: BASOPHILS % (AUTO) 1 % (0-10); EOSINOPHILS # (AUTO) 0.1 10^3/uL (0.0-0.3); EOSINOPHILS % (AUTO) 2 % (0-10); HEMATOCRIT 31 % (35-52); LYMPHOCYTES # (AUTO) 1.5 X 10^3 (1.0-4.0); LYMPHOCYTES % (AUTO) 20 % (12-44); MEAN CORPUSCULAR HEMOGLOBIN 26 PG (25-34); MEAN CORPUSCULAR HGB CONC 32 G/DL (32-36); MEAN CORPUSCULAR VOLUME 81 FL (80-99); MEAN PLATELET VOLUME 10.3 FL (7.4-10.4); MONOCYTES # (AUTO) 0.4 X 10^3 (0.0-1.0); MONOCYTES % (AUTO) 6 % (0-12); NEUTROPHILS # (AUTO) 5.4 X 10^3 (1.8-7.8); NEUTROPHILS % (AUTO) 72 % (42-75); PLATELET COUNT 215 10^3/uL (130-400); RED CELL DISTRIBUTION WIDTH 16.5 % (10.0-14.5); WHITE BLOOD COUNT 7.5 10^3/uL (4.3-11.0)
[2019-03-02 06:01] LABS: CALCIUM 9.5 MG/DL (8.5-10.1); CREATININE SERUM 2.1 MG/DL (0.60-1.30); MAGNESIUM 1.6 MG/DL (1.6-2.4); PHOSPHORUS 3.9 MG/DL (2.3-4.7); POTASSIUM 3.3 MMOL/L (3.6-5.0)
[2019-03-02] MEDS: PANTOPRAZOLE 40 MG (PROTONIX) TAB PO SCH (06:28)
[2019-03-02] MEDS: CATHETER FLUSH 10 ML SYR IV SCH ×3 (06:31→20:48)
[2019-03-02 07:30] VITALS: BP 138/69
[2019-03-02] MEDS: CARVEDILOL 12.5 MG (COREG) TABLET PO SCH ×2 (08:18→20:47)
[2019-03-02] MEDS: OMEGA 3 (FISH OIL) 1000 MG CAP PO SCH (08:18)
[2019-03-02] MEDS: LOSARTAN 100 MG (COZAAR) TABLET PO SCH (08:18)
[2019-03-02] MEDS: ASPIRIN E.C. 81 MG (ECOTRIN) TAB PO SCH (08:18)
[2019-03-02] MEDS: FUROSEMIDE 40 MG (LASIX) TAB PO SCH (08:18)
[2019-03-02] MEDS: inSUlin ASPART (NovoLOG) 1 UNIT/0.01 ML (CHARGE PER UNIT) SC SCH ×2 (08:19→20:48)
[2019-03-02] MEDS: CLOPIDOGREL 75 MG (PLAVIX) TABLET PO SCH (08:19)
--- NOTE | 2019-03-02 08:19 | Diagnostic Imaging Report ---
Indication: Dyspnea. Time of exam: 4:13 AM Correlation is made to prior study one day earlier. The heart remains enlarged. Lungs appear clear. No infiltrate or failure is seen. No effusion or pneumothorax is identified. Impression: Cardiomegaly. No other significant abnormality is seen. Dictated by: Dictated on workstation # [id number]
--- NOTE | 2019-03-02 09:57 | Progress Note - Cardiology ---
Cardiology SOAP Progress Note Subjective: Shortness of breath improved, but not resolved No cp or palp or syncope Gen malaise and weakness present Objective: I&O/Vital Signs 03/02/19 03/02/19 03/02/19 03/02/19 00:06 00:40 01:00 04:47 Temp 97.5 97.5 Pulse 74 67 72 Resp 20 19 B/P (MAP) 117/69 (85) 123/71 (88) Pulse Ox 97 97 96 O2 Delivery Room Air Room Air Room Air 03/02/19 03/02/19 03/02/19 07:00 07:30 08:55 Temp 97.6 Pulse 79 75 Resp 20 B/P (MAP) 138/69 (92) Pulse Ox 96 O2 Delivery Room Air Room Air 03/02/19 00:00 Intake Total 1186 ml Output Total 1025 ml Balance 161 ml Weight (Pounds): 201 Weight (Ounces): 3.0 Weight (Calculated Kilograms): 91.768019 Constitutional: AAO x 3, well-developed, well-nourished Respiratory: No accessory muscle use, No respiratory distress; chest expansion is symmetric, chest is bilaterally symmetric, lungs clear to auscultation Cardiovascular: regular rate-rhythm; No JVD; S1 and S2 Gastrointestional: No tender; soft, round, audible bowel sounds Extremities: no lower extremity edema bilateral Neurologic/Psychiatric: grossly intact Skin: warm/dry; No rash on exposed areas, No ulcerations on exposed areas Results/Procedures: Labs Laboratory Tests 03/01/19 20:02: Glucometer 191H 03/02/19 05:14: White Blood Count 7.5, Red Blood Count 3.84L, Hemoglobin 10.0L, Hematocrit 31L, Mean Corpuscular Volume 81, Mean Corpuscular Hemoglobin 26, Mean Corpuscular Hemoglobin Concent 32, Red Cell Distribution Width 16.5H, Platelet Count 215, Mean Platelet Volume 10.3, Neutrophils (%) (Auto) 72, Lymphocytes (%) (Auto) 20, Monocytes (%) (Auto) 6, Eosinophils (%) (Auto) 2, Basophils (%) (Auto) 1, Neutrophils # (Auto) 5.4, Lymphocytes # (Auto) 1.5, Monocytes # (Auto) 0.4, Eosinophils # (Auto) 0.1, Basophils # (Auto) 0.0, Sodium Level 140, Potassium Level 3.3L, Chloride Level 102, Carbon Dioxide Level 24, Anion Gap 14, Blood Urea Nitrogen 26H, Creatinine 2.10H, Estimat Glomerular Filtration Rate 23, BUN/Creatinine Ratio 12, Glucose Level 166H, Calcium Level 9.5, Phosphorus Level 3.9, Magnesium Level 1.6 03/02/19 08:02: Glucometer 245H Microbiology 02/28/19 MRSA Screen - Final, Complete MRSA not isolated 02/28/19 Urine Culture - Preliminary, Resulted Escherichia coli Laboratory Tests 03/01/19 03:26 03/02/19 05:14 A/P: Assessment: Acute on chronic systolic congestive heart failure - clinically improved Ischemic cardiomyopathy - LVEF 30-35% on echo of 03/01/19 Mild troponin elev due to CHF: Type 2 IA UTI - management per Medical Services Most recent cardiac catheterization done in September 2016 with PTCA for in-stent restenosis in the right coronary artery and stenting to the distal right coronary artery, had ostial LAD stenosis that was not intervened Echocardiogram of 03/01/19 showed LVEF 30-35%, mod cardiomegaly, mod MR, mild TR. RVSP 58 mmHg Pulmonary hypertension History of multiple CVA/TIA. Diagnosed with Thromboembolic R MCA Stroke - followed by neurology services Acute on chronic renal failure, chronic kidney disease stage IV Mild bilat carotid stenoses Hypertension Hyperlipidemia Intolerant to FAITH Inhibitor History of lower gastrointestinal bleeding due to diverticulitis in August 2005 Obesity with a body mass index of approximately 36. Maturity onset DM - followed by her PCP Chronic anemia, followed by Dr Mendez Barajas Plan: * Complex management * Ac on chronic CHF likely due to ischemic cardiomyopathy. Given known CAD, some of which has still not been fully addressed, we discussed the option of repeat card cath. I had a long and detailed discussion with her and her . I explained the rationale, procedure, risks, benefits potential complications and alternatives of card cath and possible ad hoc PCI. I explained to her and her her additional risk of contrast nephropathy, given baseline renal insuff. She understands and wants to proceed. Will schedule for tomorrow * Replenish K * Monitor labs VALERIE HARGROVE [facility] CCDS Mar 02, 2019 09:57
[2019-03-02] MEDS ORDERED: KCL 20 MEQ TAB (K-DUR) PO ONE (10:00)
[2019-03-02] MEDS: cefTRIAXone 1,000 MG/SWFI 10 ML IV PUSH IV SCH ×2 (11:30)
[2019-03-02] MEDS: ENOXAPARIN 100 MG/1 ML (LOVENOX) SYR SC SCH (11:30)
[2019-03-02 11:39] VITALS: BP 131/67
--- NOTE | 2019-03-02 11:43 | Progress Note ---
Subjective Subjective Date Seen by Provider: Mar 02, 2019 Time Seen by Provider: 11:39 73 yo F reports she feels decent. She walked down the ahmadi today without any shortness of breath. She is going to walk again. No issues with eating, drinking, urinating. She feels like she needs to have a bowel movement but needs help; requesting stool softner/laxative. Review of Systems General: No Chills, No Night Sweats HEENT: No Head Aches Pulmonary: No Dyspnea, No Cough Cardiovascular: No: Chest Pain, Palpitations, Edema Gastrointestinal: No: Nausea, Vomiting, Abdominal Pain Genitourinary: No Dysuria, No Frequency Neurological: Weakness Objective Exam Vital Signs Vital Signs Date Time Temp Pulse Resp B/P (MAP) Pulse Ox O2 Delivery O2 Flow Rate FiO2 03/02/19 08:55 Room Air 03/02/19 07:30 97.6 75 20 138/69 (92) 96 Room Air 03/02/19 07:00 79 03/02/19 04:47 97.5 72 19 123/71 (88) 96 Room Air 03/02/19 01:00 67 03/02/19 00:40 97.5 74 20 117/69 (85) 97 Room Air 03/02/19 00:06 97 Room Air 03/01/19 20:02 97.4 76 20 148/79 (102) 97 Room Air 03/01/19 20:00 97 Room Air 03/01/19 19:05 73 03/01/19 16:35 97.2 76 18 137/80 (99) 93 Room Air 03/01/19 16:00 93 Room Air 03/01/19 13:04 98.1 70 20 147/68 (94) 96 Room Air I & O 03/02/19 07:00 Intake Total 1686 ml Output Total 1475 ml Balance 211 ml General Appearance: No Apparent Distress (tearful at times) HEENT: PERRL/EOMI Neck: Non Tender, Supple Respiratory: Chest Non Tender, Lungs Clear, Decreased Breath Sounds (bases) Cardiovascular: Regular Rate, Rhythm Gastrointestinal: Normal Bowel Sounds, Non Tender, Soft Rectal: Deferred Back: Normal Inspection, No CVA Tenderness Extremity: Non Tender, No Calf Tenderness, Other (edema dorsum of feet- improved) Neurologic/Psychiatric: Alert, Oriented x3, No Motor/Sensory Deficits, Normal Mood/Affect Skin: Normal Color, Warm/Dry Results Lab Laboratory Tests 03/01/19 20:02: Glucometer 191H 03/02/19 05:14: White Blood Count 7.5, Red Blood Count 3.84L, Hemoglobin 10.0L, Hematocrit 31L, Mean Corpuscular Volume 81, Mean Corpuscular Hemoglobin 26, Mean Corpuscular Hemoglobin Concent 32, Red Cell Distribution Width 16.5H, Platelet Count 215, Mean Platelet Volume 10.3, Neutrophils (%) (Auto) 72, Lymphocytes (%) (Auto) 20, Monocytes (%) (Auto) 6, Eosinophils (%) (Auto) 2, Basophils (%) (Auto) 1, Neutrophils # (Auto) 5.4, Lymphocytes # (Auto) 1.5, Monocytes # (Auto) 0.4, Eosinophils # (Auto) 0.1, Basophils # (Auto) 0.0, Sodium Level 140, Potassium Level 3.3L, Chloride Level 102, Carbon Dioxide Level 24, Anion Gap 14, Blood Urea Nitrogen 26H, Creatinine 2.10H, Estimat Glomerular Filtration Rate 23, BUN/Creatinine Ratio 12, Glucose Level 166H, Calcium Level 9.5, Phosphorus Level 3.9, Magnesium Level 1.6 03/02/19 08:02: Glucometer 245H Microbiology 02/28/19 MRSA Screen - Final, Complete MRSA not isolated 02/28/19 Urine Culture - Final, Complete Escherichia coli Assessment/Plan Assessment/Plan Admission Dx NSTEMI chest discomfort acute kidney failure Assessment and Plan Admission 02/28/19 giving lasix to help diurese which in turn should help with the elevated creatinine. Lower Ext doppler negative for DVT- considered ordering a CTA to look for a PE but Cr will not support this. Therapeutic lovenox started for NSTEMI which will also cover PE. After examining her last evening it is less likely she has a PE. -Rocephin for her UTI. 03/01/19- doing better. Still no chest pain. lovenox continued. Cr still 2. Would like Cr to improve prior to discharge. restarting her stool softner for constipation. Echo 30-35% LEVF 03/02/19- Cr has not improved. Overall prognosis improved- she will be undergoing cardiac cath tomorrow with Dr. Haywood. Dispo: improved but not ready to be discharged to home. Problems: (1) Non-ST elevation myocardial infarction (NSTEMI) (2) Urinary tract infection Qualifiers: Qualified Codes: N39.0 - Urinary tract infection, site not specified (3) Chest pain Qualifiers: Qualified Codes: R07.9 - Chest pain, unspecified (4) Dyspnea Qualifiers: Qualified Codes: R06.00 - Dyspnea, unspecified (5) Acute on chronic systolic (congestive) heart failure (6) DMII (diabetes mellitus, type 2) Qualifiers: Assessment & Plan: holding oral meds. SSI A (7) Acute on chronic kidney failure Assessment & Plan: baseline creatinine around 1.5 avoid nephrotoxic agents Admission Dx NSTEMI chest discomfort acute kidney failure Clinical Quality Measures Admission Status Admission Dx NSTEMI chest discomfort acute kidney failure DVT/VTE Risk/Contraindication: Risk Factor Score Per Nursin RFS Level Per Nursing on Admit: 4+=Very High JOSHUA LITTLE MD Mar 02, 2019 11:43
[2019-03-02] MEDS: SENNA W/DOCUSATE (SENOKOT S) TABLET PO PRN ×2 (11:52→20:51)
[2019-03-02] MEDS: MAGNESIUM OXIDE (MAG-OX)400 MG TAB PO SCH ×2 (11:53→18:44)
[2019-03-02 16:30] VITALS: BP 146/64
[2019-03-02 19:55] VITALS: BP 142/77
[2019-03-02] MEDS: SIMvastatin 10 MG (ZOCOR) TAB PO SCH (20:47)
[2019-03-03] VITALS (11 sets, daily range): BP systolic 116–158; BP diastolic 53–97
[2019-03-03 05:47] LABS: BASOPHILS % (AUTO) 0 % (0-10); EOSINOPHILS # (AUTO) 0.1 10^3/uL (0.0-0.3); EOSINOPHILS % (AUTO) 2 % (0-10); HEMATOCRIT 31 % (35-52); HEMOGLOBIN 9.7 G/DL (11.5-16.0); LYMPHOCYTES # (AUTO) 1.3 X 10^3 (1.0-4.0); LYMPHOCYTES % (AUTO) 19 % (12-44); MEAN CORPUSCULAR HEMOGLOBIN 26 PG (25-34); MEAN CORPUSCULAR HGB CONC 32 G/DL (32-36); MEAN CORPUSCULAR VOLUME 80 FL (80-99); MEAN PLATELET VOLUME 10.4 FL (7.4-10.4); MONOCYTES # (AUTO) 0.6 X 10^3 (0.0-1.0); MONOCYTES % (AUTO) 9 % (0-12); NEUTROPHILS # (AUTO) 4.7 X 10^3 (1.8-7.8); NEUTROPHILS % (AUTO) 70 % (42-75); PLATELET COUNT 218 10^3/uL (130-400); RED CELL DISTRIBUTION WIDTH 16.8 % (10.0-14.5); WHITE BLOOD COUNT 6.7 10^3/uL (4.3-11.0)
[2019-03-03] MEDS: CATHETER FLUSH 10 ML SYR IV SCH ×3 (06:19→22:00)
[2019-03-03] MEDS: PANTOPRAZOLE 40 MG (PROTONIX) TAB PO SCH (06:19)
[2019-03-03 06:32] LABS: CALCIUM 9.2 MG/DL (8.5-10.1); CREATININE SERUM 1.92 MG/DL (0.60-1.30); MAGNESIUM 1.7 MG/DL (1.6-2.4); PHOSPHORUS 3.6 MG/DL (2.3-4.7); POTASSIUM 3.7 MMOL/L (3.6-5.0)
--- NOTE | 2019-03-03 07:02 | Diagnostic Imaging Report ---
Indication: Shortness of breath. Portable chest 3:38 AM Findings: There is cardiomegaly. Pulmonary vascularity is normal. Lungs are clear. Impression: Cardiomegaly without evidence of pulmonary venous hypertension. Dictated by: Dictated on workstation # [id number]
[2019-03-03] MEDS: CARVEDILOL 12.5 MG (COREG) TABLET PO SCH ×2 (08:06→20:33)
[2019-03-03] MEDS: CLOPIDOGREL 75 MG (PLAVIX) TABLET PO SCH (08:06)
[2019-03-03] MEDS: FUROSEMIDE 40 MG (LASIX) TAB PO SCH (08:07)
[2019-03-03] MEDS: MAGNESIUM OXIDE (MAG-OX)400 MG TAB PO SCH ×2 (08:07→20:34)
[2019-03-03] MEDS: LOSARTAN 100 MG (COZAAR) TABLET PO SCH (08:07)
[2019-03-03] MEDS: OMEGA 3 (FISH OIL) 1000 MG CAP PO SCH (08:07)
[2019-03-03] MEDS: ASPIRIN E.C. 81 MG (ECOTRIN) TAB PO SCH (08:07)
[2019-03-03] MEDS: inSUlin ASPART (NovoLOG) 1 UNIT/0.01 ML (CHARGE PER UNIT) SC SCH ×2 (09:05→23:00)
[2019-03-03] MEDS ORDERED: NS IV 1000 ML 1,000 ML IV SCH ×2 (09:30→17:57)
[2019-03-03] MEDS: ENOXAPARIN 100 MG/1 ML (LOVENOX) SYR SC SCH (11:12)
[2019-03-03] MEDS: cefTRIAXone 1,000 MG/SWFI 10 ML IV PUSH IV SCH ×2 (11:16)
--- NOTE | 2019-03-03 12:59 | Progress Note ---
Subjective Subjective Date Seen by Provider: Mar 03, 2019 Time Seen by Provider: 12:54 73 yo F anxious about having the cath done but reports she made her mind up last night to have Dr. Haywood do it. Cr 1.92 today- improved from 2.1 No new complaints or issues. Feeling decent. Review of Systems General: No Chills, No Night Sweats HEENT: No Head Aches Pulmonary: No Dyspnea, No Cough Cardiovascular: No: Chest Pain, Palpitations, Edema Gastrointestinal: No: Nausea, Vomiting, Abdominal Pain Genitourinary: No Dysuria, No Frequency Neurological: Weakness Objective Exam Vital Signs Vital Signs Date Time Temp Pulse Resp B/P (MAP) Pulse Ox O2 Delivery O2 Flow Rate FiO2 03/03/19 12:49 66 03/03/19 11:38 97.6 63 20 118/72 (87) 97 Room Air 03/03/19 08:10 Room Air 03/03/19 08:01 97.4 75 20 137/73 (94) 96 Room Air 03/03/19 07:00 72 03/03/19 04:30 97.2 72 16 116/53 (74) 95 Room Air 03/03/19 01:00 69 03/03/19 00:43 97.1 76 18 134/64 (87) 96 Room Air 03/02/19 20:00 96 Room Air 03/02/19 19:55 97.6 72 20 142/77 (98) 96 Room Air 03/02/19 19:00 89 03/02/19 16:30 97.2 63 20 146/64 (91) 95 Room Air I & O 03/03/19 07:00 Intake Total 1172 ml Balance 1172 ml General Appearance: No Apparent Distress HEENT: PERRL/EOMI Neck: Non Tender, Supple Respiratory: Chest Non Tender, Lungs Clear, Decreased Breath Sounds (bases) Cardiovascular: Regular Rate, Rhythm Gastrointestinal: Normal Bowel Sounds, Non Tender, Soft Rectal: Deferred Back: Normal Inspection, No CVA Tenderness Extremity: Non Tender, No Calf Tenderness, Other (edema dorsum of feet- imp roved) Neurologic/Psychiatric: Alert, Oriented x3, No Motor/Sensory Deficits, Normal Mood/Affect Skin: Normal Color, Warm/Dry Results Lab Laboratory Tests 03/02/19 20:26: Glucometer 155H 03/03/19 05:21: White Blood Count 6.7, Red Blood Count 3.80L, Hemoglobin 9.7L, Hematocrit 31L, Mean Corpuscular Volume 80, Mean Corpuscular Hemoglobin 26, Mean Corpuscular Hemoglobin Concent 32, Red Cell Distribution Width 16.8H, Platelet Count 218, Mean Platelet Volume 10.4, Neutrophils (%) (Auto) 70, Lymphocytes (%) (Auto) 19, Monocytes (%) (Auto) 9, Eosinophils (%) (Auto) 2, Basophils (%) (Auto) 0, Neutrophils # (Auto) 4.7, Lymphocytes # (Auto) 1.3, Monocytes # (Auto) 0.6, Eosinophils # (Auto) 0.1, Basophils # (Auto) 0.0, Sodium Level 140, Potassium Level 3.7, Chloride Level 103, Carbon Dioxide Level 23, Anion Gap 14, Blood Urea Nitrogen 29H, Creatinine 1.92H, Estimat Glomerular Filtration Rate 25, BUN/Creatinine Ratio 15, Glucose Level 153H, Calcium Level 9.2, Phosphorus Level 3.6, Magnesium Level 1.7 03/03/19 08:14: Glucometer 168H Microbiology 02/28/19 MRSA Screen - Final, Complete MRSA not isolated 02/28/19 Urine Culture - Final, Complete Escherichia coli Assessment/Plan Assessment/Plan Admission Dx NSTEMI chest discomfort acute kidney failure Assessment and Plan Admission 02/28/19 giving lasix to help diurese which in turn should help with the elevated creatinine. Lower Ext doppler negative for DVT- considered ordering a CTA to look for a PE but Cr will not support this. Therapeutic lovenox started for NSTEMI which will also cover PE. After examining her last evening it is less likely she has a PE. -Rocephin for her UTI. 03/01/19- doing better. Still no chest pain. lovenox continued. Cr still 2. Would like Cr to improve prior to discharge. restarting her stool softner for constipation. Echo 30-35% LEVF 03/02/19- Cr has not improved. Overall prognosis improved- she will be undergoing cardiac cath tomorrow with Dr. Haywood. 03/03/19- Cr improved to 1.92- Cath today. No new issues. Overall improving. UTI resolved- urinating without issues with tong catheter out. No fevers or sign of illness. Anemia noted- consider outpatient iron infusions. unable to obtain hga1c due to hgb variant Dispo: improved- likely d/c to home tomorrow pending cath evaluation. Problems: (1) Non-ST elevation myocardial infarction (NSTEMI) (2) Urinary tract infection Qualifiers: Qualified Codes: N39.0 - Urinary tract infection, site not specified (3) Chest pain Qualifiers: Qualified Codes: R07.9 - Chest pain, unspecified (4) Dyspnea Qualifiers: Qualified Codes: R06.00 - Dyspnea, unspecified (5) Acute on chronic systolic (congestive) heart failure (6) DMII (diabetes mellitus, type 2) Qualifiers: Assessment & Plan: holding oral meds. SSI A (7) Acute on chronic kidney failure Assessment & Plan: baseline creatinine around 1.5 avoid nephrotoxic agents Admission Dx NSTEMI chest discomfort acute kidney failure Clinical Quality Measures Admission Status Admission Dx NSTEMI chest discomfort acute kidney failure DVT/VTE Risk/Contraindication: Risk Factor Score Per Nursin RFS Level Per Nursing on Admit: 4+=Very High JOSHUA LITTLE MD Mar 03, 2019 12:59
[2019-03-03] MEDS ORDERED: LIDOCAINE 1% INJ 20 ML 20 ML VIAL ONE (13:04)
[2019-03-03] MEDS ORDERED: HEParin (CATH LAB) 2,000 ML IV ONE (13:04)
--- NOTE | 2019-03-03 14:32 | NUR ---
Initial visit: This field marketing team leader also visited the pt and her Alexei when she was in the ER. She requested prayer, demonstrated strong bucky in God, and said she is greatly comforted by her 's presence with her.
[2019-03-03] MEDS ORDERED: MIDAZOLAM 5 MG/5 ML (VERSED) VIAL ONE (16:09)
[2019-03-03] MEDS ORDERED: NS IV 1000 ML 1,000 ML ONE (16:10)
[2019-03-03] MEDS ORDERED: fentaNYL INJECTION 100 MCG/2 ML AMP ONE (16:10)
[2019-03-03] MEDS ORDERED: HEParin 1000 UNIT/ML (10ML VIAL) FOR BOLUS ONE (16:42)
[2019-03-03] MEDS ORDERED: EPTIFIBATIDE BOLUS 20 ML IV ONE (16:43)
[2019-03-03] MEDS ORDERED: NITRO DRIP 25000 MCG/D5W 250 ML IV ONE (16:59)
--- NOTE | 2019-03-03 17:20 | NUR ---
Report given to SHAWNA Iglesias.
[2019-03-03] MEDS ORDERED: ASPIRIN 81 MG CHEW (CHILDREN'S ASA) ONE (17:49)
[2019-03-03] MEDS ORDERED: CLOPIDOGREL 75 MG (PLAVIX) TABLET ONE (17:49)
--- NOTE | 2019-03-03 17:53 | Progress Note - Cardiology ---
Cardiology SOAP Progress Note Subjective: Gen malaise Shortness of breath better No cp Objective: I&O/Vital Signs 03/03/19 03/03/19 03/03/19 03/03/19 07:00 08:01 08:10 11:38 Temp 97.4 97.6 Pulse 72 75 63 Resp 20 20 B/P (MAP) 137/73 (94) 118/72 (87) Pulse Ox 96 97 O2 Delivery Room Air Room Air Room Air 03/03/19 03/03/19 12:49 15:50 Temp 97.9 Pulse 66 73 Resp 18 B/P (MAP) 144/67 (92) Pulse Ox 97 O2 Delivery Room Air 03/03/19 00:00 Intake Total 1122 ml Balance 1122 ml Weight (Pounds): 199 Weight (Ounces): 1.0 Weight (Calculated Kilograms): 90.912317 Constitutional: AAO x 3, well-developed, well-nourished Respiratory: No accessory muscle use, No respiratory distress; chest expansion is symmetric, chest is bilaterally symmetric, lungs clear to auscultation Cardiovascular: regular rate-rhythm; No JVD; S1 and S2 Gastrointestional: No tender; soft, round, audible bowel sounds Extremities: no lower extremity edema bilateral Neurologic/Psychiatric: grossly intact Skin: warm/dry; No rash on exposed areas, No ulcerations on exposed areas Results/Procedures: Labs Laboratory Tests 03/02/19 20:26: Glucometer 155H 03/03/19 05:21: White Blood Count 6.7, Red Blood Count 3.80L, Hemoglobin 9.7L, Hematocrit 31L, Mean Corpuscular Volume 80, Mean Corpuscular Hemoglobin 26, Mean Corpuscular Hemoglobin Concent 32, Red Cell Distribution Width 16.8H, Platelet Count 218, Mean Platelet Volume 10.4, Neutrophils (%) (Auto) 70, Lymphocytes (%) (Auto) 19, Monocytes (%) (Auto) 9, Eosinophils (%) (Auto) 2, Basophils (%) (Auto) 0, Neutrophils # (Auto) 4.7, Lymphocytes # (Auto) 1.3, Monocytes # (Auto) 0.6, Eosinophils # (Auto) 0.1, Basophils # (Auto) 0.0, Sodium Level 140, Potassium Level 3.7, Chloride Level 103, Carbon Dioxide Level 23, Anion Gap 14, Blood Urea Nitrogen 29H, Creatinine 1.92H, Estimat Glomerular Filtration Rate 25, BUN/Creatinine Ratio 15, Glucose Level 153H, Calcium Level 9.2, Phosphorus Level 3.6, Magnesium Level 1.7 03/03/19 08:14: Glucometer 168H Microbiology 02/28/19 MRSA Screen - Final, Complete MRSA not isolated 02/28/19 Urine Culture - Final, Complete Escherichia coli Laboratory Tests 03/02/19 05:14 03/03/19 05:21 A/P: Assessment: Last cath 03/03/19 95-99% stenosis of mid LAD stented successfully with Alp Xience 2.25 x 8; prox and ostial LAD 60-70%; up to 50% instent in prox and mid LCX; up to 70% in a long stented segment of a dominant RCA; patent stent w/o restenosis in distal RCA; LVEDP 19 mmHg; LV gram not done (to conserve contrast because of patient's renal insuff) Acute on chronic systolic congestive heart failure - clinically improved Ischemic cardiomyopathy - LVEF 30-35% on echo of 03/01/19 Mild troponin elev due to CHF: Type 2 OR UTI - management per Medical Services Echocardiogram of 03/01/19 showed LVEF 30-35%, mod cardiomegaly, mod MR, mild TR. RVSP 58 mmHg Pulmonary hypertension History of multiple CVA/TIA. Diagnosed with Thromboembolic R MCA Stroke - followed by neurology services Acute on chronic renal failure, chronic kidney disease stage IV Mild bilat carotid stenoses Hypertension Hyperlipidemia Intolerant to FAITH Inhibitor History of lower gastrointestinal bleeding due to diverticulitis in August 2005 Obesity with a body mass index of approximately 36. Maturity onset DM - followed by her PCP Chronic anemia, followed by Dr Mendez Barajas Plan: * Complex management * Continue current regimen * Replenish lytes * Monitor labs VALERIE HARGROVE MD FACP [facility] CCDS Mar 03, 2019 17:53
[2019-03-03] MEDS ORDERED: MAGNESIUM 1 GM/100 ML IVPB 100 ML IV ONE (18:00)
[2019-03-03] MEDS ORDERED: PATIENT MAY USE OWN MEDS, ALL PO SCH (18:00)
--- NOTE | 2019-03-03 18:05 | Cardiac Procedure Note-CS/ASA ---
Pre-Procedure Note Pre-Op Procedure Note H&P Reviewed The H&P was reviewed, patient examined and no changes noted. Date H&P Reviewed: Mar 03, 2019 Time H&P Reviewed: 16:30 Conscious Sedation Pre-Proced Time 16:30 ASA Score 3 For ASA 3 and 4: Consider anesthesia and medical clearance. Also, for patients with a history of failed moderate sedation consider anesthesia. Airway Lungs Heart ASA score ASA 1: a normal healthy patient ASA 2: a patient with a mild systemic disease (mid diabetes, controlled hypertension, obesity ASA 3: a patient with a severe systemic disease that limits activity (angina, COPD, prior Myocardial infarction) ASA 4: a patient with an incapacitating disease that is a constant threat to life (CHF, renal failure) ASA 5: a moribund patient not expected to survive 24 hrs. (ruptured aneurysm) ASA 6: a declared brain- patient whose organs are being harvested. For emergent operations, add the letter E after the classification Mallampati Classification Grade 2 Sedation Plan Analgesia, Amnesia, Plan communicated to team members, Discussed options with patient/fam, Discussed risks with patient/fam The patient is an appropriate candidate to undergo the planned procedure, sedation, and anesthesia. The patient immediately re-assessed prior to indication. VALERIE HARGROVE MD FACP FAC CCDS Mar 03, 2019 18:05
[2019-03-03] MEDS: SIMvastatin 10 MG (ZOCOR) TAB PO SCH (20:34)
[2019-03-03] MEDS: SENNA W/DOCUSATE (SENOKOT S) TABLET PO PRN (22:59)
[2019-03-04] VITALS: BP 128/60
--- NOTE | 2019-03-04 00:55 | CARDIAC CATHETERIZATION ---
DATE OF SERVICE: 02/28/2019 CARDIAC CATHETERIZATION AND CORONARY INTERVENTION REPORT The patient is a 73-year-old lady who is known to have coronary artery disease and ischemic cardiomyopathy. She presents with decompensated congestive heart failure. Echo indicated continuing cardiomyopathy. She has had symptoms of angina equivalent. Cardiac catheterization was carried out today after having obtained informed consent for cardiac catheterization and possible ad hoc coronary intervention. PROCEDURE: She was brought to the cardiac catheterization laboratory in a fasting state. Right groin was prepared and draped in the usual sterile fashion. Lidocaine 1% was used for local anesthesia. Modified Seldinger technique was used to advance a 5-Danish sheath into the right femoral artery, 5-Danish JL4 catheter for right coronary angiography, 5-Danish JR4 catheter was used for right coronary angiography, 5-Danish pigtail catheter was used for left heart catheterization. Left ventricular angiography was not performed. This was to conserve contrast because of the patient's chronic kidney disease stage IV. Percutaneous intervention of the left anterior descending artery. Following completion of the diagnostic procedure, percutaneous intervention was carried out in the left anterior descending artery, which was exhibiting 95% to 99% stenosis in its mid portion at the origin of the first septal icing mixer. We exchanged the sheath over a wire for a 6-Danish sheath. We gave 6000 units of intravenous heparin and double bolus of Integrilin. We used a 6-Danish JL4 guide catheter to engage the left coronary artery. We advanced a ChoICE extra support wire across the lesion and the tip of this was placed in the distal vessel. Balloon angioplasty was carried out with Emerge 2.0 x 15 mm balloon. Stenting was carried out with Alpine Xience 2.25 x 8 mm stent that was deployed at 20 atmospheres achieving a final stent lumen size of 2.63 mm. Subsequent angiography revealed 0% residual stenosis at the previous site of 95% to 99% stenosis. Ostial and proximal left anterior descending artery has 60% to 70% stenosis that was not intervened on. Left circumflex artery has moderate in-stent restenosis that was not intervened on. Right coronary artery has moderately severe in-stent restenosis that was not intervened on. Angioplasty equipment was removed. Angiography of the right femoral artery was carried out through the sheath. Mynx was used to achieve hemostasis. She tolerated the procedure well. HEMODYNAMICS: Left ventricular end-diastolic pressure following coronary angiography was 19 mmHg. There is no significant pressure gradient on pullback across the aortic valve. Ascending aortic pressure 133/73 with a mean of 95 mmHg. CORONARY ANGIOGRAPHY: Left main coronary artery does not exhibit significant disease. Left anterior descending artery has ostial and proximal 60% to 70% stenosis. The mid left anterior descending artery at the site of the origin of the septal icing mixer had 95% to 99% stenosis. This was successfully stented as detailed above (Alpine Xience 2.25 x 8 mm stent that was deployed at 20 atmospheres). The left circumflex artery has moderate in-stent restenosis. Right coronary artery has a long stented segment in its proximal and mid portions that has approximately 70% stenosis. The distal right coronary artery has a widely patent stent without significant stent restenosis. Right coronary artery is dominant. CONCLUSIONS: 1. A 95% to 99% stenosis in the mid left anterior descending artery stenosis successfully with Alpine Xience 2.25 x 8 mm stent deployed at 20 atmospheres. 2. A 60% to 70% proximal ostial stenosis of the left anterior descending. 3. Up to 50% in-stent restenosis in proximal and mid left circumflex. 4. Up to 70% stenosis in a long stented segment of the proximal right coronary and a patent stent without restenosis in the distal right coronary. 5. Elevated left ventricular end-diastolic pressure. DISCUSSION AND RECOMMENDATIONS: Dual-antiplatelet therapy, beta-blockers, statins, angiotensin receptor blockers are being continued. She remains hospitalized after today's intervention. Careful perioperative hydration is being continued. Job ID: [id number] DocumentID: [id number] Dictated Date: 03/03/2019 18:13:04 Medical Grade Shoemaker Date: 03/04/2019 00:55:18 Dictated By: VALERIE HARGROVE MD, MA, FACP, FACC,
[2019-03-04 04:24] VITALS: BP 136/64
[2019-03-04 04:45] LABS: BASOPHILS % (AUTO) 1 % (0-10); EOSINOPHILS # (AUTO) 0.1 10^3/uL (0.0-0.3); EOSINOPHILS % (AUTO) 2 % (0-10); HEMATOCRIT 29 % (35-52); HEMOGLOBIN 9.5 G/DL (11.5-16.0); LYMPHOCYTES % (AUTO) 16 % (12-44); MEAN CORPUSCULAR HEMOGLOBIN 27 PG (25-34); MEAN CORPUSCULAR HGB CONC 33 G/DL (32-36); MEAN CORPUSCULAR VOLUME 81 FL (80-99); MEAN PLATELET VOLUME 10.7 FL (7.4-10.4); MONOCYTES # (AUTO) 0.5 X 10^3 (0.0-1.0); MONOCYTES % (AUTO) 8 % (0-12); NEUTROPHILS # (AUTO) 4.7 X 10^3 (1.8-7.8); NEUTROPHILS % (AUTO) 73 % (42-75); PLATELET COUNT 204 10^3/uL (130-400); RED CELL DISTRIBUTION WIDTH 16.8 % (10.0-14.5); WHITE BLOOD COUNT 6.4 10^3/uL (4.3-11.0)
[2019-03-04 05:00] LABS: CALCIUM 8.8 MG/DL (8.5-10.1); CREATININE SERUM 1.74 MG/DL (0.60-1.30); PHOSPHORUS 3.2 MG/DL (2.3-4.7); POTASSIUM 3.6 MMOL/L (3.6-5.0)
[2019-03-04] MEDS: CATHETER FLUSH 10 ML SYR IV SCH (07:26)
--- NOTE | 2019-03-04 07:44 | Diagnostic Imaging Report ---
INDICATION: Shortness of breath, chest pain. COMPARISON: 03/03/2019. FINDINGS: Single view of the chest demonstrates stable cardiac enlargement without overt pulmonary edema. Aeration of lungs is unchanged. There is no pneumothorax. Osseous structures are stable. IMPRESSION: Stable cardiac enlargement without overt pulmonary edema. Dictated by: Dictated on workstation # [id number]
--- NOTE | 2019-03-04 08:40 | Progress Note - Cardiology ---
Cardiology SOAP Progress Note Subjective: Sitting up in bed. Spouse at the bedside. No c/o CP, palpitations or dyspnea. No c/o right groin pain. States "I'm doing fine". Tearful and wants to go home. Objective: I&O/Vital Signs 03/04/19 03/04/19 03/04/19 03/04/19 00:00 02:00 04:24 07:00 Temp 96.7 97.0 Pulse 69 67 64 65 Resp 20 18 B/P (MAP) 128/60 (82) 136/64 (88) Pulse Ox 95 O2 Delivery Room Air Room Air 03/04/19 00:00 Intake Total 210 ml Balance 210 ml Weight (Pounds): 199 Weight (Ounces): 1.0 Weight (Calculated Kilograms): [id number] Side: right Groin site without hematoma: Yes Condition: DP/PT pulses palpable, extremity w/d/p Bruising: mild bruising Constitutional: AAO x 3, well-developed, well-nourished Respiratory: No accessory muscle use, No respiratory distress; chest expansion is symmetric, chest is bilaterally symmetric, lungs clear to auscultation Cardiovascular: regular rate-rhythm; No JVD; S1 and S2 Gastrointestional: No tender; soft, round, audible bowel sounds Extremities: no lower extremity edema bilateral Neurologic/Psychiatric: grossly intact Skin: warm/dry; No rash on exposed areas, No ulcerations on exposed areas Results/Procedures: Labs Laboratory Tests 03/03/19 21:40: Glucometer 204H 03/04/19 04:33: White Blood Count 6.4, Red Blood Count 3.59L, Hemoglobin 9.5L, Hematocrit 29L, Mean Corpuscular Volume 81, Mean Corpuscular Hemoglobin 27, Mean Corpuscular Hemoglobin Concent 33, Red Cell Distribution Width 16.8H, Platelet Count 204, Mean Platelet Volume 10.7H, Neutrophils (%) (Auto) 73, Lymphocytes (%) (Auto) 16, Monocytes (%) (Auto) 8, Eosinophils (%) (Auto) 2, Basophils (%) (Auto) 1, Neutrophils # (Auto) 4.7, Lymphocytes # (Auto) 1.0, Monocytes # (Auto) 0.5, Eosinophils # (Auto) 0.1, Basophils # (Auto) 0.0, Sodium Level 140, Potassium Level 3.6, Chloride Level 105, Carbon Dioxide Level 22, Anion Gap 13, Blood Urea Nitrogen 27H, Creatinine 1.74H, Estimat Glomerular Filtration Rate 29, BUN/Creatinine Ratio 16, Glucose Level 140H, Calcium Level 8.8, Phosphorus Level 3.2, Magnesium Level 2.0 Microbiology 02/28/19 MRSA Screen - Final, Complete MRSA not isolated 02/28/19 Urine Culture - Final, Complete Escherichia coli A/P: Assessment: CAD. Last cath 03/03/19: 95-99% stenosis of mid LAD stented successfully with Alp Xience 2.25 x 8; prox and ostial LAD 60-70%; up to 50% instent in prox and mid LCX; up to 70% in a long stented segment of a dominant RCA; patent stent w/o restenosis in distal RCA; LVEDP 19 mmHg; LV gram not done (to conserve contrast because of patient's renal insuff) Acute on chronic systolic congestive heart failure - clinically improved Ischemic cardiomyopathy - LVEF 30-35% on echo of 03/01/19 Mild troponin elev due to CHF: Type 2 [place] UTI - management per Medical Services Echocardiogram of 03/01/19 showed LVEF 30-35%, mod cardiomegaly, mod MR, mild TR. RVSP 58 mmHg Pulmonary hypertension History of multiple CVA/TIA. Diagnosed with Thromboembolic R MCA Stroke - followed by neurology services Acute on chronic renal failure, chronic kidney disease stage IV Mild bilat carotid stenoses Hypertension Hyperlipidemia Intolerant to FAITH Inhibitor History of lower gastrointestinal bleeding due to diverticulitis in August 2005 Obesity with a body mass index of approximately 36. Maturity onset DM - followed by her PCP Chronic anemia, followed by Dr Mendez Barajas Plan: * Complex management * Renal function improved * Continue current regimen * Discharge planning * Out pt f/u in a week * Lab in a week Physician Assessment Physician Assessment No cp or palp or syncope or shortness of breath or groin discomfort. Feels well and wishes to go home Lungs: clear Cor: reg Ext: no c/c/e; no significant groin hematoma or inflam or signs of vasc compromise A&R * As documented in our note above that I updated (italics) and as noted below * I discussed her cath findings and interventions undertaken with her and her * I discussed her case with Dr Barajas * I advised pt to be compliant with meds and discussed risk factor mod * I advised close clinical f/u FRANTZ [address] [facility] Mar 04, 2019 08:40 VALERIE HARGROVE MD FACP [facility] CCDS Mar 04, 2019 11:48
[2019-03-04] MEDS ORDERED: ASPI-999 PO (08:42)
[2019-03-04] MEDS ORDERED: FURO40TA4 PO (08:42)
[2019-03-04] MEDS: FUROSEMIDE 40 MG (LASIX) TAB PO SCH (08:45)
[2019-03-04] MEDS: CLOPIDOGREL 75 MG (PLAVIX) TABLET PO SCH (08:45)
[2019-03-04] MEDS: PANTOPRAZOLE 40 MG (PROTONIX) TAB PO SCH (08:45)
[2019-03-04] MEDS: ASPIRIN E.C. 81 MG (ECOTRIN) TAB PO SCH (08:45)
[2019-03-04] MEDS: LOSARTAN 100 MG (COZAAR) TABLET PO SCH (08:45)
[2019-03-04] MEDS: CARVEDILOL 12.5 MG (COREG) TABLET PO SCH (08:46)
[2019-03-04] MEDS: MAGNESIUM OXIDE (MAG-OX)400 MG TAB PO SCH (08:46)
[2019-03-04] MEDS: OMEGA 3 (FISH OIL) 1000 MG CAP PO SCH (08:46)
[2019-03-04] MEDS: inSUlin ASPART (NovoLOG) 1 UNIT/0.01 ML (CHARGE PER UNIT) SC SCH (08:46)
--- NOTE | 2019-03-04 09:06 | NUR ---
Follow up visit with the pt's Alexei as he was leaving the floor. He said his was sleeping now, and he plans to return later today.
--- NOTE | 2019-03-04 11:50 | Discharge Inst-Simple/Standard ---
Discharge Inst-Standard Reconcile Patient Problems Problems Reviewed?: Yes Discharge Medications New, Converted or Re-Newed RX: Transmitted to Pharmacy Patient Instructions/Follow Up Plan of Care/Instructions/FU: urinary tract infection- resolved Follow up with Dr. Haywood in 1 week Resume home medications --Continue lasix 40mg daily- stop your previous 20mg prescription. Activity as Tolerated: Yes Discharge Diet: Cardiac Diet Return to The Hospital For: new chest pain JOSHUA LITTLE MD Mar 04, 2019 11:50
[2019-03-04 12:00] VITALS: BP 129/57
--- NOTE | 2019-03-05 10:35 | Discharge Summary ---
Diagnosis/Chief Complaint Date of Admission Feb 28, 2019 at 12:26 Date of Discharge Mar 04, 2019 at 14:13 Discharge Date: Mar 04, 2019 Discharge Time: 1220 Admission Diagnosis Admission Diagnosis (1) Urinary tract infection Qualifiers: Qualified Codes: N39.0 - Urinary tract infection, site not specified (2) Chest pain Qualifiers: Qualified Codes: R07.9 - Chest pain, unspecified (3) Non-ST elevation myocardial infarction (NSTEMI) (4) Dyspnea Qualifiers: Qualified Codes: R06.00 - Dyspnea, unspecified (5) Acute on chronic systolic (congestive) heart failure (6) DMII (diabetes mellitus, type 2) Discharge Diagnosis (1) Non-ST elevation myocardial infarction (NSTEMI) (2) Urinary tract infection Qualifiers: Qualified Codes: N39.0 - Urinary tract infection, site not specified (3) Chest pain Qualifiers: Qualified Codes: R07.9 - Chest pain, unspecified (4) Dyspnea Qualifiers: Qualified Codes: R06.00 - Dyspnea, unspecified (5) Acute on chronic systolic (congestive) heart failure (6) DMII (diabetes mellitus, type 2) Qualifiers: Assessment & Plan: holding oral meds. SSI A (7) Acute on chronic kidney failure Reason Hospital Visit 73 yo F admitted for chest discomfort found to have elevated troponin, elevated BNP, and acute kidney failure. She does have a history of CAD. Patient reports her discomfort started about a week ago but on Thursday she felt great: cleaned the house, made supper, etc so she felt like she beat the virus or whatever was making her ill. The following day she didn't do much because she felt ill again. Thursday, day of admission she felt even worse and told her she can't keep doing this and went to the ER. Pt was going to come to [facility] for left foot swelling but this has improved. This afternoon she reports that she is feeling much better and does not want to be in the hospital much longer. She denies any issues urinating or having bowel movements. Denies any bleeding. Discharge Summary Hospital Course Hospital Course 73 yo female admitted for chest pain in acute systolic heart failure as well as acute kidney failure related to her heart failure. She diuresed well but kidney function took a couple days to improve. She was monitored closely and with a little bit of improvement in her kidney function she underwent a heart catheter ization on 03/03/19 Results: 1. A 95% to 99% stenosis in the mid left anterior descending artery stenosis successfully with Alpine Xience 2.25 x 8 mm stent deployed at 20 atmospheres. 2. A 60% to 70% proximal ostial stenosis of the left anterior descending. 3. Up to 50% in-stent restenosis in proximal and mid left circumflex. 4. Up to 70% stenosis in a long stented segment of the proximal right coronary and a patent stent without restenosis in the distal right coronary. 5. Elevated left ventricular end-diastolic pressure. She no longer has chest pain and did walk the halls during her stay. She will continue her medical management with plavix, aspirin, ARB, statin. Her 20mg of lasix has been increased to 40mg daily. Consider iron infusions weekly for 4 weeks to help with her anemia. She was also treated for a urinary tract infection. She will follow up with Dr. Haywood in 1 week. MELBA in 2 weeks. Labs Laboratory Tests 03/02/19 20:26: Glucometer 155H 03/03/19 05:21: Red Blood Count 3.80L, Hemoglobin 9.7L, Hematocrit 31L, Red Cell Distribution Width 16.8H, Blood Urea Nitrogen 29H, Creatinine 1.92H, Glucose Level 153H 03/03/19 08:14: Glucometer 168H 03/03/19 21:40: Glucometer 204H 03/04/19 04:33: Red Blood Count 3.59L, Hemoglobin 9.5L, Hematocrit 29L, Red Cell Distribution Width 16.8H, Mean Platelet Volume 10.7H, Blood Urea Nitrogen 27H, Creatinine 1.74H, Glucose Level 140H Procedures [facility] echo Consultations Cardiology Discharge Physical Examination Allergies: Coded Allergies: Sulfa (Sulfonamide Antibiotics) (Verified Allergy, Unknown, 09/01/05) Vitals & I&Os Vital Signs Date Time Temp Pulse Resp B/P (MAP) Pulse Ox O2 Delivery O2 Flow Rate FiO2 03/04/19 12:00 97.8 129/57 (81) 03/04/19 09:00 Room Air 03/04/19 07:00 65 03/04/19 04:24 18 03/04/19 00:00 95 General Appearance: Alert, Oriented X3, Cooperative HEENT: Atraumatic, PERRLA Respiratory: Clear to Auscultation Cardiovascular: Regular Rate Abdominal: Normal Bowel Sounds, Soft Skin: No Rashes Neuro: Normal Speech, Strength at 5/5 X4 Ext Psych/Mental Status: Mental Status NL, Mood NL Discharge Home Medications Reviewed and agree with Discharge Medication list on patient's Discharge Instruction sheet Condition at Discharge stable Instructions to Patient/Family Please see electronic discharge instructions given to patient. Clinical Quality Measures DVT/VTE Risk/Contraindication: Risk Factor Score Per Nursin RFS Level Per Nursing on Admit: 4+=Very High JOSHUA LITTLE MD Mar 05, 2019 10:35
== END 2019-03-04 14:13 | disposition home or self-care (01) | DRG 246 ==
LOC: EDUNIT# 08:47 → ER 08:49 → ICU 12:26 → 4TH 03-01 10:44 → ICU 03-03 18:05
PROVIDERS: ADMIT Family Medicine; ATTEND Family Medicine
PROC: 027034Z Dilation of Coronary Artery, One Artery with Drug-eluting Intraluminal Device, Percutaneous Approach (ICD-10-PCS; principal; 2019-02-28)
PROC: 4A023N7 Measurement of Cardiac Sampling and Pressure, Left Heart, Percutaneous Approach (ICD-10-PCS; 2019-02-28)
PROC: B2111ZZ Fluoroscopy of Multiple Coronary Arteries using Low Osmolar Contrast (ICD-10-PCS; 2019-02-28)
DX: I13.0 Hypertensive heart and chronic kidney disease with heart failure and stage 1 through stage 4 chronic kidney disease, or unspecified chronic kidney disease (principal); I50.23 Acute on chronic systolic (congestive) heart failure; I21.A1 Myocardial infarction type 2; N18.4 Chronic kidney disease, stage 4 (severe); N17.9 Acute kidney failure, unspecified; N39.0 Urinary tract infection, site not specified; I25.5 Ischemic cardiomyopathy; I25.10 Atherosclerotic heart disease of native coronary artery without angina pectoris; E11.9 Type 2 diabetes mellitus without complications; I27.20 Pulmonary hypertension, unspecified; I08.1 Rheumatic disorders of both mitral and tricuspid valves; D64.9 Anemia, unspecified; E78.00 Pure hypercholesterolemia, unspecified; T82.855D Stenosis of coronary artery stent, subsequent encounter; K21.9 Gastro-esophageal reflux disease without esophagitis; E66.9 Obesity, unspecified; K57.90 Diverticulosis of intestine, part unspecified, without perforation or abscess without bleeding; M19.91 Primary osteoarthritis, unspecified site; E78.5 Hyperlipidemia, unspecified; Z95.5 Presence of coronary angioplasty implant and graft; Z86.73 Personal history of transient ischemic attack (TIA), and cerebral infarction without residual deficits; Z68.36 Body mass index [BMI] 36.0-36.9, adult; I65.23 Occlusion and stenosis of bilateral carotid arteries
CPT/HCPCS: 36415; 71045; 80048; 80053; 80061; 81000; 82962; 83036; 83735; 83874; 83880; 84100; 84443; 84484; 85025; 85027; 85379; 85610; 85730; 86141; 87081; 87088; 87186; 93005; 93041; 93306; 93458; 93970; 96372; 96374; 96375

== ENCOUNTER 2019-08-22 11:36 | Observation (INO) | payer MEDICARE ==
[2019-08-22] VITALS (9 sets, daily range): BP systolic 122–162; BP diastolic 57–98
[~2019-08-22] VITALS: Ht 157 cm; Wt 89.3 kg
[~2019-08-22 11:36] MED LIST changes: +ACET-93 PO; +ASPI-999 PO; +FURO40TA4 PO; +MULT-642 PO; +OMEP-280 PO; -OMEP20CA13 PO; +PRAV10TA PO; +SENN-145 PO; +SIMV40TA25 PO; -SIMV40TA4 PO
--- NOTE | 2019-08-22 14:20 | NUR ---
PT BROUGHT BACK TO ROOM. NOTIFIED OF CONTINUED BUSY ER WITH POSSIBLE LONG WAIT. PT STATES SHE DID START FEELING BETTER IN THE WAITING ROOM BUT SHE DOES NOT FEEL WELL. COMPLAINS OF DIZZINESS WHEN SHE WALKS.
[2019-08-22 14:43] LABS: BILIRUBIN,URINE NEGATIVE (NEGATIVE); CLARITY,URINE CLEAR; COLOR,URINE YELLOW; GLUCOSE, URINE (UA) NEGATIVE (NEGATIVE); KETONES,URINE NEGATIVE (NEGATIVE); LEUKOCYTE ESTERASE ,URINE NEGATIVE (NEGATIVE); NITRITE,URINE NEGATIVE (NEGATIVE); PH,URINE 6.5 (5-9); PROTEIN,URINE NEGATIVE (NEGATIVE)
[2019-08-22 14:50] LABS: BACTERIA,URINE NEGATIVE /HPF; SQUAMOUS EPITHELIAL CELL,UR RARE /HPF
--- NOTE | 2019-08-22 14:51 | ED Respiratory ---
General Chief Complaint: General Problems/Pain Stated Complaint: WEAKNESS;DIZZINESS Nursing Triage Note: Pt reports generalized weakness x2 weeks, progressively getting worse. Pt also reports SOA with exertion. Pt stating "I just don't feel well". Source: patient, spouse Exam Limitations: no limitations History of Present Illness Date Seen by Provider: Aug 22, 2019 Time Seen by Provider: 14:36 Initial Comments Patient presents to ER by private conveyance with her spouse and chief complaint for the past 2 weeks she's not felt well, shortness of breath, increased swelling in her ankles. She has a history of coronary disease with stents followed by Dr. Bee. She's not having chest pain but she does have exertional dyspnea. She denies orthopnea. She has not had a cough fever chills but she does have some nausea. She has not seen her primary care doctor or had any workup for these symptoms. She denies any history of pulmonary disease, smoking etc. Patient was discharged from non-STEMI February 2019, 5 months ago. She had a history of acute kidney failure and an elevated BNP historically of 2600. Cardiac catheterization by Dr. Bee, February 2019: 95-99% stenosis of the mid left anterior descending artery stented. 60-70% proximal ostial stenosis of the left anterior descending. Up to 50% in-stent restenosis in the proximal and mid left circumflex. Up to 70% stenosis in a long stented segment of the proximal right coronary and a patent stent without restenosis in the distal right coronary. Elevated left ventricular end-diastolic pressure. Echocardiogram by Dr. Bee December 2016: EF of 30-35% with moderate diffuse hypokinesis. Moderate regurgitation. Allergies and Home Medications Allergies Coded Allergies: Sulfa (Sulfonamide Antibiotics) (Verified Allergy, Unknown, 09/01/05) Home Medications Acetaminophen 500 Mg Tablet, 1,000 MG PO Q6H PRN for PAIN-MILD, (Reported) Aspirin 81 Mg Tab.chew, 81 MG PO DAILY Prescribed by: FRANTZ CORLEY on 03/04/19841 Carvedilol 12.5 Mg Tablet, 12.5 MG PO BID, (Reported) Clopidogrel Bisulfate 75 Mg Tablet, 75 MG PO DAILY, (Reported) Furosemide 40 Mg Tablet, 40 MG PO DAILY Prescribed by: FRANTZ CORLEY on 03/04/19841 Losartan Potassium 100 Mg Tablet, 100 MG PO DAILY, (Reported) Multivitamin 1 Each Tablet, 1 EACH PO DAILY, (Reported) [place] 3 Polyunsat Fatty Acids 1,000 Mg Cap, 1,000 MG PO DAILY, (Reported) Omeprazole 20 Mg Capsule.dr, 20 MG PO DAILY, (Reported) Pravastatin Sodium 10 Mg Tablet, 10 MG PO HS, (Reported) Sennosides/Docusate Sodium 1 Each Tablet, 1 EACH PO HS PRN for CONSTIPATION-6TH LINE, (Reported) Sitagliptin Phosphate 100 Mg Tablet, 50 MG PO DAILY, (Reported) TAKES 1/2 OF A (100 MG) TABLET Patient Home Medication List Home Medication List Reviewed: Yes Review of Systems Review of Systems Constitutional: No chills, No diaphoresis; malaise, weakness EENTM: No ear discharge, No ear pain Respiratory: cough, orthopnea, short of breath Cardiovascular: No chest pain; Hx of Intervention; No palpitations, No syncope; vascular heart diseas Gastrointestinal: No abdominal pain, No constipation; nausea; No vomiting Genitourinary: No discharge, No dysuria Musculoskeletal: No back pain, No joint pain Psychiatric/Neurological: Denies Anxiety, Denies Depressed All Other Systems Reviewed Negative Unless Noted: Yes Past Tcxtkqy-[id number]-Atpvqg Hx Patient Social History Alcohol Use: Denies Use Recreational Drug Use: No Smoking Status: Never a Smoker 2nd Hand Smoke Exposure: No Recent Foreign Travel: No Contact w/Someone Who Travel: No Recent Infectious Disease Expo: No Recent Hopitalizations: Yes (CVA 02/02/16) Immunizations Up To Date Tetanus Booster (TDap): Less than 5yrs Date of Pneumonia Vaccine: Jun 12, 2014 Date of Influenza Vaccine: Apr 25, 2016 Seasonal Allergies Seasonal Allergies: No Past Medical History Surgeries: Yes Cardiac, Coronary Stent, Gallbladder, Hysterectomy Respiratory: No Currently Using CPAP: No Currently Using BIPAP: No Cardiac: Yes Cardiomyopathy, Coronary Artery Disease, High Cholesterol, Hypertension, V alvular Heart Disease Neurological: Yes Stroke, TIA Reproductive Disorders: No Female Reproductive Disorders: 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 1.0oz. 90.945724cv; 36.00 BMI Method:Stated General Appearance: WD/WN, mild distress Eyes: Bilateral Eye Normal Inspection, Bilateral Eye PERRL, Bilateral Eye EOMI HEENT: PERRL/EOMI, normal ENT inspection, TMs normal, pharynx normal Neck: non-tender, full range of motion, supple, normal inspection Respiratory: lungs clear, normal breath sounds, no accessory muscle use, respiratory distress Cardiovascular: normal peripheral pulses, regular rate, rhythm Gastrointestinal: non tender, soft Extremities: normal range of motion, non-tender, normal capillary refill Neurologic/Psychiatric: alert, normal mood/affect, oriented x 3 Skin: normal color, warm/dry Progress/Results/Core Measures Suspected Sepsis Recent Fever Within 48 Hours: No Infection Criteria Present: None New/Unexplained Altered Menta: No Sepsis Screen: No Definite Risk SIRS Temperature: Pulse: 81 Respiratory Rate: 16 Laboratory Tests 08/22/19 14:50: White Blood Count 7.4 Blood Pressure 138 /81 Mean: 100 Laboratory Tests 08/22/19 14:50: Creatinine 1.87H, Platelet Count 237, Total Bilirubin 0.9 Results/Orders Lab Results Laboratory Tests Test 08/22/19 14:28 08/22/19 14:50 Range/Units Urine Color YELLOW Urine Clarity CLEAR Urine pH 6.5 5-9 Urine Specific [place] 1.015 L 1.016-1.022 Urine Protein NEGATIVE NEGATIVE Urine Glucose (UA) NEGATIVE NEGATIVE Urine Ketones NEGATIVE NEGATIVE Urine Nitrite NEGATIVE NEGATIVE Urine Bilirubin NEGATIVE NEGATIVE Urine Urobilinogen 0.2 < = 1.0 MG/DL Urine Leukocyte Esterase NEGATIVE NEGATIVE Urine RBC (Auto) NEGATIVE NEGATIVE Urine RBC NONE /HPF Urine WBC NONE /HPF Urine Squamous Epithelial Cells RARE /HPF Urine Crystals NONE /LPF Urine Bacteria NEGATIVE /HPF Urine Casts NONE /LPF Urine Mucus NEGATIVE /LPF Urine Culture Indicated NO White Blood Count 7.4 4.3-11.0 10^3/uL Red Blood Count 4.17 L 4.35-5.85 10^6/uL Hemoglobin 10.5 L 11.5-16.0 G/DL Hematocrit 33 L 35-52 % Mean Corpuscular Volume 80 80-99 FL Mean Corpuscular Hemoglobin 25 25-34 PG Mean Corpuscular Hemoglobin Concent 32 32-36 G/DL Red Cell Distribution Width 15.7 H 10.0-14.5 % Platelet Count 237 130-400 10^3/uL Mean Platelet Volume 10.8 H 7.4-10.4 FL Neutrophils (%) (Auto) 75 42-75 % Lymphocytes (%) (Auto) 16 12-44 % Monocytes (%) (Auto) 7 0-12 % Eosinophils (%) (Auto) 1 0-10 % Basophils (%) (Auto) 1 0-10 % Neutrophils # (Auto) 5.6 1.8-7.8 X 10^3 Lymphocytes # (Auto) 1.2 1.0-4.0 X 10^3 Monocytes # (Auto) 0.6 0.0-1.0 X 10^3 Eosinophils # (Auto) 0.1 0.0-0.3 10^3/uL Basophils # (Auto) 0.1 0.0-0.1 10^3/uL Sodium Level 141 135-145 MMOL/L Potassium Level 3.9 3.6-5.0 MMOL/L Chloride Level 105 98-107 MMOL/L Carbon Dioxide Level 24 21-32 MMOL/L Anion Gap 12 5-14 MMOL/L Blood Urea Nitrogen 23 H 7-18 MG/DL Creatinine 1.87 H 0.60-1.30 MG/DL Estimat Glomerular Filtration Rate 26 BUN/Creatinine Ratio 12 Glucose Level 189 H 70-105 MG/DL Calcium Level 9.8 8.5-10.1 MG/DL Corrected Calcium 9.8 8.5-10.1 MG/DL Total Bilirubin 0.9 0.1-1.0 MG/DL Aspartate Amino Transf (AST/SGOT) 12 5-34 U/L Alanine Aminotransferase (ALT/SGPT) 11 0-55 U/L Alkaline Phosphatase 120 40-136 U/L Troponin I < 0.028 <0.028 NG/ML C-Reactive Protein High Sensitivity 1.81 H 0.00-0.50 MG/DL B-Type Natriuretic Peptide 3362.2 H <100.0 PG/ML Total Protein 7.0 6.4-8.2 GM/DL Albumin 4.0 3.2-4.5 GM/DL Micro Results Microbiology 08/22/19 Influenza Types A,B Antigen (FELECIA) - Final, Complete My Orders Orders - FREDDIE YANES Ekg Tracing (08/22/19 14:32) Ua Culture If Indicated (08/22/19 14:35) Cbc With Automated Diff (08/22/19 14:47) Comprehensive Metabolic Panel (08/22/19 14:47) Hs C Reactive Protein (08/22/19 14:47) Orthostatic Vital Signs (Adult (08/22/19 14:47) Troponin I (08/22/19 14:47) BNP (08/22/19 14:47) Chest 1 View, Ap/Pa Only (08/22/19 14:47) Influenza A And B Antigens (08/22/19 14:47) General/Regular (08/22/19 Dinner) Furosemide Injection (Lasix Injection) (08/22/19 17:30) Catheter(Urinary) Insert & Ass 03,15 (08/22/19 17:26) Medications Given in ED Current Medications Medications Dose Ordered Sig/Cindy Route Start Time Stop Time Status Last Admin Dose Admin Furosemide 40 mg ONCE ONCE IVP 08/22/19 17:30 08/22/19 17:31 DC 08/22/19 18:06 40 MG Vital Signs/I&O 08/22/19 08/22/19 11:49 14:55 Temp 36.9 Pulse 81 86 80 85 Resp 16 B/P (MAP) 138/81 (100) 151/91 (111) 162/98 (119) 145/87 (106) Pulse Ox 95 O2 Delivery Room Air Capillary Refill : Less Than 3 Seconds Blood Pressure Mean: 100 Progress Note : Time: 17:18 Progress Note Nursing and related patient to bathroom and oxygen sats got down to about 90-91% and she was visibly short of breath. 2 L by nasal cannula and she says she felt much better. Her baseline BNP appears to be 2600 but she is now 3300. Suspect she is in CHF exacerbation. No fevers chills or elevated white count suggest pneumonia. She has orthopnea or swelling. Plan to give her 40 mg Lasix IV since she takes 40 once a orally. Put her on potassium supplements hold all her other meds per Dr. Haywood and seek inpatient care. ECG Initial ECG Impression Date: Aug 22, 2019 Initial ECG Impression Time: 14:33 Initial ECG Rate: 83 Initial ECG Rhythm: Normal Sinus Initial ECG Intervals: QT (466) Initial ECG Impression: Normal, Nonspecific Changes Initial ECG Comparisson: Unchanged Comment LVH, normal sinus rhythm without ST elevation or depression. Diagnostic Imaging Diagonstic Imaging: Xray Comments [facility], [place] NAME: RAJAN DUNN [facility] REC#: [id number] PT STATUS: REG ER : 1945 PHYSICIAN: FREDDIE YANES MD ADMIT DATE: 08/22/19/ER Draft Date of Exam:08/22/19 CHEST 1 VIEW, AP/PA ONLY HISTORY: Weakness, shortness of air. TECHNIQUE: Single frontal view of the chest. COMPARISON: 03/04/2019. FINDINGS: Lung volumes are normal. There is mild cardiomegaly with central vascular congestion. There is increased airspace opacity at the left lung base compared to the prior study. No significant pleural effusion or pneumothorax is seen. There is aortic atherosclerosis. IMPRESSION: 1. Increased airspace opacity in the left lung base, may represent atelectasis or infiltrate. 2. Mild cardiomegaly with mild central vascular congestion. Dictated on workstation # [id number] Dict: 08/22/19 1609 Trans: 08/22/19 1611 [id number] Interpreted by: MASON BROOKS MD Electronically signed by: Reviewed: Reviewed by Me Departure Communication (Admissions) Time/Spoke to Admitting Phy: 17:20 Discussed the case with Dr. Mendez Little and he agrees to observe the patient overnight. 40 mg of Lasix today and 40 mg Lasix in morning IV. He agrees with consult cardiology. Time/Spoke to Consulting Phy: 16:[address] Haywood, primary monogram and letter paster and he agrees to consult on the patient Lasix if necessary. If she is unstable or needs anything overnight Dr. Lopez's covering. Discussed the case with Dr. Lpoez and he agrees to cover overnight. Impression Primary Impression: Acute exacerbation of CHF (congestive heart failure) Qualified Codes: I50.23 - Acute on chronic systolic (congestive) heart failure Disposition: ADMITTED INPATIENT Condition: Stable Admissions Decision to Admit Reason: Admit from ER (General) Decision to Admit/Date: Aug 22, 2019 Time/Decision to Admit Time: 16:45 Departure-Patient Inst. Referrals: MENDEZ LITTLE MD (PCP/Family) Primary Care Physician FREDDIE YANES Aug 22, 2019 14:51
[2019-08-22 15:02] LABS: BASOPHILS # (AUTO) 0.1 10^3/uL (0.0-0.1); BASOPHILS % (AUTO) 1 % (0-10); EOSINOPHILS # (AUTO) 0.1 10^3/uL (0.0-0.3); EOSINOPHILS % (AUTO) 1 % (0-10); HEMATOCRIT 33 % (35-52); HEMOGLOBIN 10.5 G/DL (11.5-16.0); LYMPHOCYTES # (AUTO) 1.2 X 10^3 (1.0-4.0); LYMPHOCYTES % (AUTO) 16 % (12-44); MEAN CORPUSCULAR HEMOGLOBIN 25 PG (25-34); MEAN CORPUSCULAR HGB CONC 32 G/DL (32-36); MEAN CORPUSCULAR VOLUME 80 FL (80-99); MEAN PLATELET VOLUME 10.8 FL (7.4-10.4); MONOCYTES # (AUTO) 0.6 X 10^3 (0.0-1.0); MONOCYTES % (AUTO) 7 % (0-12); NEUTROPHILS # (AUTO) 5.6 X 10^3 (1.8-7.8); NEUTROPHILS % (AUTO) 75 % (42-75); PLATELET COUNT 237 10^3/uL (130-400); RED CELL DISTRIBUTION WIDTH 15.7 % (10.0-14.5); WHITE BLOOD COUNT 7.4 10^3/uL (4.3-11.0)
[2019-08-22 15:21] LABS: ALANINE AMINOTRANSFERASE 11 U/L (0-55); ALKALINE PHOSPHATASE 120 U/L (40-136); BILIRUBIN,TOTAL 0.9 MG/DL (0.1-1.0); BUN/CREATININE RATIO 12; CALCIUM 9.8 MG/DL (8.5-10.1); CARBON DIOXIDE 24 MMOL/L (21-32); CHLORIDE 105 MMOL/L (98-107); CREATININE SERUM 1.87 MG/DL (0.60-1.30); GFR ESTIMATED 26; GLUCOSE 189 MG/DL (70-105); POTASSIUM 3.9 MMOL/L (3.6-5.0); SODIUM 141 MMOL/L (135-145)
--- NOTE | 2019-08-22 15:30 | NUR ---
RESTING IN BED ET DENIES NEEDS AT THIS TIME.
--- NOTE | 2019-08-22 16:12 | Diagnostic Imaging Report ---
HISTORY: Weakness, shortness of air. TECHNIQUE: Single frontal view of the chest. COMPARISON: 03/04/2019. FINDINGS: Lung volumes are normal. There is mild cardiomegaly with central vascular congestion. There is increased airspace opacity at the left lung base compared to the prior study. No significant pleural effusion or pneumothorax is seen. There is aortic atherosclerosis. IMPRESSION: 1. Increased airspace opacity in the left lung base, may represent atelectasis or infiltrate. 2. Mild cardiomegaly with mild central vascular congestion. Dictated by: Dictated on workstation # [id number]
--- NOTE | 2019-08-22 16:20 | NUR ---
AMEENA MATOS REPORTS PT WAS SOA AFTER COMING BACK FROM THE BATHROOM ET HE APPLIED OXYGEN AT 2LNC.
[2019-08-22] MEDS ORDERED: FUROSEMIDE 40 MG/4 ML INJ (LASIX) IVP ONE (17:30)
--- NOTE | 2019-08-22 17:58 | NUR ---
ATTEMPT TO CALL REPORT ET NURSE WILL CALL BACK WHEN SHE HAS TIME.
[2019-08-22] MEDS ORDERED: ONDANSETRON 4 MG/2 ML (SDV) Z0FRAN IVP PRN (19:00)
[2019-08-22] MEDS ORDERED: ACETAMINOPHEN 500 MG TAB (TYLENOL) PO PRN (19:00)
--- NOTE | 2019-08-22 19:00 | NUR ---
RAJAN DUNN admitted to room CU12-1, with an admitting diagnosis of CHF, HYPOXIA, on 08/22/19 from ED via STRETCHER, accompanied by HOSPITAL STAFF. RAJAN DUNN introduced to surroundings, call light, bed controls, phone, TV, temperature control, lights, meal times, smoking policy, visitor policy, side rail policy, bathrooms and showers. Patient Rights given to patient in the handbook.RAJAN DUNN verbalizes understanding that [facility] is not responsible for the loss or damage to any personal effects or valuables that are kept in the patients posession during their hospitalization. RAJAN DUNN verbalizes understanding of Interdisciplinary Patient Education. Patient and/or family were informed about the Rapid Response Team and its purpose.
[2019-08-22] MEDS ORDERED: LORazepam 0.5 MG (ATIVAN) TABLET PO PRN (19:15)
[2019-08-22] MEDS: inSUlin ASPART (NovoLOG) 1 UNIT/0.01 ML (CHARGE PER UNIT) SC SCH (20:59)
[2019-08-23] VITALS (7 sets, daily range): BP systolic 107–137; BP diastolic 56–70
[2019-08-23 03:57] LABS: BASOPHILS % (AUTO) 1 % (0-10); EOSINOPHILS # (AUTO) 0.1 10^3/uL (0.0-0.3); EOSINOPHILS % (AUTO) 2 % (0-10); HEMATOCRIT 30 % (35-52); HEMOGLOBIN 9.6 G/DL (11.5-16.0); LYMPHOCYTES # (AUTO) 1.3 X 10^3 (1.0-4.0); LYMPHOCYTES % (AUTO) 19 % (12-44); MEAN CORPUSCULAR HEMOGLOBIN 25 PG (25-34); MEAN CORPUSCULAR HGB CONC 32 G/DL (32-36); MEAN CORPUSCULAR VOLUME 79 FL (80-99); MEAN PLATELET VOLUME 10.9 FL (7.4-10.4); MONOCYTES # (AUTO) 0.6 X 10^3 (0.0-1.0); MONOCYTES % (AUTO) 9 % (0-12); NEUTROPHILS # (AUTO) 4.6 X 10^3 (1.8-7.8); NEUTROPHILS % (AUTO) 69 % (42-75); PLATELET COUNT 227 10^3/uL (130-400); RED CELL DISTRIBUTION WIDTH 15.7 % (10.0-14.5); WHITE BLOOD COUNT 6.6 10^3/uL (4.3-11.0)
[2019-08-23 04:17] LABS: ALBUMIN 3.8 GM/DL (3.2-4.5); BILIRUBIN,TOTAL 0.9 MG/DL (0.1-1.0); CALCIUM 9.4 MG/DL (8.5-10.1); CREATININE SERUM 1.85 MG/DL (0.60-1.30); POTASSIUM 3.4 MMOL/L (3.6-5.0); TOTAL PROTEIN 6.4 GM/DL (6.4-8.2)
[2019-08-23] MEDS: inSUlin ASPART (NovoLOG) 1 UNIT/0.01 ML (CHARGE PER UNIT) SC SCH ×2 (06:15→11:14)
--- NOTE | 2019-08-23 08:01 | Consultation-Cardiology ---
HPI-Cardiology Cardiology Consultation: Date of Consultation 08/23/19 Time Seen by a Provider: 09:50 Date of Admission 08-22-2019 Attending Physician Mendez Barajas MD Admitting Physician Mendez Barajas MD Consulting Physician Azeem Haywood MD HPI: Chief Complaint: Progressive dyspnea Ms. Jones is a 74 year old female admitted to ICU 12 from the ED with c/o increasing SOB and LE swelling. She reports for the last several days she has noted increasing SOB with minimal exertion and bilat LE swelling. She denies any c/o CP, palpitations, syncope or near syncope. She denies any fever or chills. She is currently sitting up in a recliner at the bedside and states she is feeling much better and would like to go home. She feels her LE swelling has improved, not yet back to baseline. Review of Systems-Cardiology Review of Systems Constitutional: No chills, No fever; malaise Eyes: No vision change Ears/Nose/Throat: No epistaxis, No recent hearing loss Respiratory: As described under HPI Cardiovascular: As described under HPI Gastrointestinal: constipation; No diarrhea, No nausea, No vomiting Genitourinary: No dysuria, No hematuria Skin: No rash on exposed areas, No ulcerations on exposed areas Psychiatric/Neurological: No anxiety, No depression, No seizure, No focal weakness, No syncope Hematologic: No bleeding abnormalities All Other Systems Reviewed Negative Unless Noted: Yes IIP-Jcnwnk-Ewvyit Hx Patient Social History Alcohol Use: Denies Use Recreational Drug Use: No Smoking Status: Never a Smoker 2nd Hand Smoke Exposure: No Recent Foreign Travel: No Recent Infectious Disease Expo: No Immunizations Up To Date Tetanus Booster (TDap): Less than 5yrs Date of Pneumonia Vaccine: Jun 12, 2017 Date of Influenza Vaccine: May 20, 2019 Past Medical History PMH As described under Assessment. Family Medical History Family Medical History: She reports a family h/o her mother having HTN and CAD. Family History: 19 FATHER Pancreatitis 19 MOTHER Diabetes mellitus Myocardial infarction FH: leukemia Hypertension SIBLINGS FH: stomach cancer SIBLINGS Cardiovascular disease SIBLINGS Hypertension Allergies and Home Medications Allergies Coded Allergies: Sulfa (Sulfonamide Antibiotics) (Verified Allergy, Unknown, 09/01/05) Home Medications Acetaminophen 500 Mg Tablet, 1,000 MG PO Q6H PRN for PAIN-MILD, (Reported) Aspirin 81 Mg Tab.chew, 81 MG PO DAILY Prescribed by: FRANTZ flowers 03/04/19 0842 Carvedilol 12.5 Mg Tablet, 12.5 MG PO BID, (Reported) Clopidogrel Bisulfate 75 Mg Tablet, 75 MG PO DAILY, (Reported) Furosemide 40 Mg Tablet, 40 MG PO DAILY Prescribed by: FRANTZ CORLEY on 03/04/19841 Losartan Potassium 100 Mg Tablet, 100 MG PO DAILY, (Reported) Multivitamin 1 Each Tablet, 1 EACH PO DAILY, (Reported) [place] 3 Polyunsat Fatty Acids 1,000 Mg Cap, 1,000 MG PO DAILY, (Reported) Omeprazole 20 Mg Capsule.dr, 20 MG PO DAILY, (Reported) Pravastatin Sodium 10 Mg Tablet, 10 MG PO HS, (Reported) Sennosides/Docusate Sodium 1 Each Tablet, 1 EACH PO HS PRN for CONSTIPATION-6TH LINE, (Reported) Sitagliptin Phosphate 100 Mg Tablet, 50 MG PO DAILY, (Reported) TAKES 1/2 OF A (100 MG) TABLET Physical Exam-Cardiology Physical Exam Vital Signs/I&O 08/22/19 08/23/19 08/23/19 08/23/19 23:00 00:00 00:00 00:00 Temp 36.6 Pulse 67 70 Resp 17 17 B/P (MAP) 122/66 (84) 137/67 (90) Pulse Ox 98 98 O2 Delivery Room Air Room Air Room Air 08/23/19 08/23/19 08/23/19 08/23/19 01:00 01:00 04:00 04:00 Temp 36.4 Pulse 68 68 75 Resp 14 16 B/P (MAP) 137/70 (92) 111/56 (74) Pulse Ox 99 98 93 O2 Delivery Room Air Nasal Cannula Room Air O2 Flow Rate 2.00 08/23/19 08/23/19 08/23/19 08/23/19 04:21 06:02 07:00 08:00 Pulse 71 81 82 Resp 16 25 B/P (MAP) 107/59 (75) Pulse Ox 97 O2 Delivery Nasal Cannula Nasal Cannula Nasal Cannula O2 Flow Rate 2.00 2.00 2.00 08/23/19 08/23/19 08:35 08:45 Temp 36.3 Pulse 81 Resp 18 B/P (MAP) 107/59 (75) Pulse Ox 91 98 O2 Delivery Room Air 08/23/19 00:00 Intake Total 120 ml Output Total 650 ml Balance -530 ml Capillary Refill : Less Than 3 Seconds Constitutional: AAO x 3, well-developed, well-nourished HEENT: PERRL, hearing is well preserved, oral hygience is good Neck: No carotid bruit; carotid pulses are 2 + bilaterally Respiratory: No accessory muscle use, No respiratory distress; chest expansion is symmetric, chest is bilaterally symmetric, other (good air entry) Cardiovascular: regular rate-rhythm; No JVD; S1 and S2 Gastrointestinal: No tender; soft, round, audible bowel sounds Extremities: other (mod bilat LE swelling) Neurologic/Psychiatric: grossly intact (moves all extremities) Skin: No rash on exposed areas, No ulcerations on exposed areas Data Review Labs Laboratory Tests 08/22/19 14:28: Urine Color YELLOW, Urine Clarity CLEAR, Urine pH 6.5, Urine Specific [place] 1.015L, Urine Protein NEGATIVE, Urine Glucose (UA) NEGATIVE, Urine Ketones NEGATIVE, Urine Nitrite NEGATIVE, Urine Bilirubin NEGATIVE, Urine Urobilinogen 0.2, Urine Leukocyte Esterase NEGATIVE, Urine RBC (Auto) NEGATIVE, Urine RBC NONE, Urine WBC NONE, Urine Squamous Epithelial Cells RARE, Urine Crystals NONE, Urine Bacteria NEGATIVE, Urine Casts NONE, Urine Mucus NEGATIVE, Urine Culture Indicated NO 08/22/19 14:50: White Blood Count 7.4, Red Blood Count 4.17L, Hemoglobin 10.5L, Hematocrit 33L, Mean Corpuscular Volume 80, Mean Corpuscular Hemoglobin 25, Mean Corpuscular Hemoglobin Concent 32, Red Cell Distribution Width 15.7H, Platelet Count 237, Mean Platelet Volume 10.8H, Neutrophils (%) (Auto) 75, Lymphocytes (%) (Auto) 16, Monocytes (%) (Auto) 7, Eosinophils (%) (Auto) 1, Basophils (%) (Auto) 1, Neutrophils # (Auto) 5.6, Lymphocytes # (Auto) 1.2, Monocytes # (Auto) 0.6, Eosinophils # (Auto) 0.1, Basophils # (Auto) 0.1, Sodium Level 141, Potassium Level 3.9, Chloride Level 105, Carbon Dioxide Level 24, Anion Gap 12, Blood Urea Nitrogen 23H, Creatinine 1.87H, Estimat Glomerular Filtration Rate 26, BUN/Creatinine Ratio 12, Glucose Level 189H, Calcium Level 9.8, Corrected Calcium 9.8, Total Bilirubin 0.9, Aspartate Amino Transf (AST/SGOT) 12, Alanine Aminotransferase (ALT/SGPT) 11, Alkaline Phosphatase 120, Troponin I < 0.028, C-Reactive Protein High Sensitivity 1.81H, B-Type Natriuretic Peptide 3362.2H, Total Protein 7.0, Albumin 4.0 08/22/19 20:18: Glucometer 204H 08/22/19 21:30: Troponin I < 0.028 08/23/19 03:05: White Blood Count 6.6, Red Blood Count 3.83L, Hemoglobin 9.6L, Hematocrit 30L, Mean Corpuscular Volume 79L, Mean Corpuscular Hemoglobin 25, Mean Corpuscular Hemoglobin Concent 32, Red Cell Distribution Width 15.7H, Platelet Count 227, Mean Platelet Volume 10.9H, Neutrophils (%) (Auto) 69, Lymphocytes (%) (Auto) 19, Monocytes (%) (Auto) 9, Eosinophils (%) (Auto) 2, Basophils (%) (Auto) 1, Neutrophils # (Auto) 4.6, Lymphocytes # (Auto) 1.3, Monocytes # (Auto) 0.6, Eosinophils # (Auto) 0.1, Basophils # (Auto) 0.0, Sodium Level 142, Potassium Level 3.4L, Chloride Level 104, Carbon Dioxide Level 25, Anion Gap 13, Blood Urea Nitrogen 23H, Creatinine 1.85H, Estimat Glomerular Filtration Rate 27, BUN/Creatinine Ratio 12, Glucose Level 109H, Calcium Level 9.4, Corrected Calcium 9.6, Total Bilirubin 0.9, Aspartate Amino Transf (AST/SGOT) 10, Alanine Aminotransferase (ALT/SGPT) 9, Alkaline Phosphatase 102, Troponin I 0.044H, Total Protein 6.4, Albumin 3.8 Microbiology 08/22/19 Influenza Types A,B Antigen (FELECIA) - Final, Complete Radiology NAME: RAJAN JONES [facility] REC#: [id number] PT STATUS: REG ER : 1945 PHYSICIAN: FREDDIE YANES MD ADMIT DATE: 08/22/19/ER Signed Date of Exam:08/22/19 CHEST 1 VIEW, AP/PA ONLY HISTORY: Weakness, shortness of air. TECHNIQUE: Single frontal view of the chest. COMPARISON: 03/04/2019. FINDINGS: Lung volumes are normal. There is mild cardiomegaly with central vascular congestion. There is increased airspace opacity at the left lung base compared to the prior study. No significant pleural effusion or pneumothorax is seen. There is aortic atherosclerosis. IMPRESSION: 1. Increased airspace opacity in the left lung base, may represent atelectasis or infiltrate. 2. Mild cardiomegaly with mild central vascular congestion. Dictated by: Dictated on workstation # [id number] Dict: 08/22/19 1609 Trans: 08/22/19 1717 [id number] Interpreted by: MASON BROOKS MD Electronically signed by: MASON BROOKS MD 08/22/19 1717 ECG Impression ECG Initial ECG Rhythm: Normal Sinus A/P-Cardiology Assessment/Admission Diagnosis Acute on chronic systolic CHF Minimal troponin elevated this morning (previous 2 had been WNL) CAD. Last cath 03/03/19: 95-99% stenosis of mid LAD stented successfully with Alp Xience 2.25 x 8; prox and ostial LAD 60-70%; up to 50% instent in prox and mid LCX; up to 70% in a long stented segment of a dominant RCA; patent stent w/o restenosis in distal RCA; LVEDP 19 mmHg; LV gram not done (to conserve contrast because of patient's renal insuff) Ischemic cardiomyopathy - LVEF 30-35% on echo of 03/01/19 Echocardiogram of 03/01/19 showed LVEF 30-35%, mod cardiomegaly, mod MR, mild TR. RVSP 58 mmHg Pulmonary hypertension History of multiple CVA/TIA. Diagnosed with Thromboembolic R MCA Stroke - followed by neurology services Minimal carotid plaque on carotid u/s of Mar 2019 Chronic renal failure, chronic kidney disease stage IV. 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 Maturity onset DM - followed by her PCP Chronic anemia, followed by Dr Mendez Barajas Discussion and Recomendations Acute on chronic systolic CHF - treat with diuretics Echocardiogram to eval LVEF Monitor lab and replace electrolytes as indicated Continue antiplatelet tx Continue ARB Continue statin Further recs will be based on her hospital course We would like to thank medical services for this consult Clinical Quality Measures DVT/VTE Risk/Contraindication: Risk Factor Score Per Nursin RFS Level Per Nursing on Admit: 4+=Very High FRANTZ CORLEY Aug 23, 2019 08:01
--- NOTE | 2019-08-23 08:35 | Diagnostic Imaging Report ---
EXAMINATION: Chest radiograph, portable AP view. DATE: 08/23/2019 4:53 AM hours. INDICATION: 74-year-old female, hypoxia. COMPARISON: August 22, 2019. FINDINGS: Stable overall appearance of the cardiomediastinal silhouette. There is mild cardiomegaly. There is no identified pneumothorax. There is no large pleural effusion. There is nonspecific left basilar airspace consolidation which is unchanged. IMPRESSION: 1. Stable mild cardiomegaly with nonspecific left basilar airspace consolidation which may relate to small effusion, atelectasis, and/or infiltrate. Dictated by: Dictated on workstation # [id number]
[2019-08-23] MEDS ORDERED: CLOPIDOGREL 75 MG (PLAVIX) TABLET PO SCH (09:00)
[2019-08-23] MEDS ORDERED: PANTOPRAZOLE 20 MG TABLET (PROTONIX) PO SCH (09:00)
[2019-08-23] MEDS ORDERED: ASPIRIN 81 MG CHEW (CHILDREN'S ASA) PO NR (10:15)
[2019-08-23] MEDS ORDERED: KCL 20 MEQ TAB (K-DUR) PO NR (10:15)
[2019-08-23] MEDS ORDERED: ASPI-983 PO (11:27)
[2019-08-23] MEDS ORDERED: BETA1TAB15 PO (11:27)
[2019-08-23] MEDS ORDERED: FURO40TA4 PO (11:27)
--- NOTE | 2019-08-23 11:30 | NUR ---
WENT OVER THE EXT MED HX WITH THE PATIENT AND SHE VERIFIED HOW SHE TAKES HER PRESCRIPTION MEDICATION. SHE GETS THEM THROUGH A [facility]IL ORDER PHARM[facility]Y. SHE TAKES THE FOLLOWING OTC: TYLENOL PRN ASPIRIN 81MG HS MTV DAILY FISH OIL DAILY SENNA S 2 HS PRESERVISION BID
--- NOTE | 2019-08-23 13:47 | Short Stay Summary ---
History of Present Illness History of Present Illness Reason for visit/HPI 74 yo F admitted for worsening of shortness of breath with exertion. She was found to be in acute congestive heart failure. Patient reports that this had been brewing for 2weeks and finally decided to go to the ER. She does have some chest discomfort but not bad. Last admit was February 2019 for similar symptoms. She reports that prior to this she was doing fairly well. Denies any issues with urinating or toileting. Tolerating by mouth intake. She was diuresed with IV lasix with good urine output- and the following morning she felt well enough to go home. Echo was performed with a LVEF 30-35%. Discussions were undertaken and decision was made to continue with medical management at this time. Date of Admission Aug 22, 2019 at 17:30 Date of Discharge 08/23/2019 Time Seen by Provider: 07:00 Attending Physician Mendez Little MD Admitting Physician Mendez Little MD Consult Dr. Haywood Allergies and Home Medications Allergies Coded Allergies: Sulfa (Sulfonamide Antibiotics) (Verified Allergy, Unknown, 09/01/05) Home Medications Acetaminophen 500 Mg Tablet, 1,000 MG PO Q6H PRN for PAIN-MILD, (Reported) Aspirin 81 Mg Tablet.dr, 81 MG PO HS, (Reported) Carvedilol 12.5 Mg Tablet, 12.5 MG PO BID, (Reported) Clopidogrel Bisulfate 75 Mg Tablet, 75 MG PO DAILY, (Reported) Furosemide 40 Mg Tablet, 40 MG PO BID Prescribed by: FRANTZ CORLEY on 08/23/19 141 Losartan Potassium 100 Mg Tablet, 100 MG PO DAILY, (Reported) Multivitamin 1 Each Tablet, 1 TAB PO DAILY, (Reported) [place] 3 Polyunsat Fatty Acids 1,000 Mg Cap, 1,000 MG PO DAILY, (Reported) Omeprazole 20 Mg Capsule.dr, 20 MG PO DAILY, (Reported) Potassium Chloride 10 Meq Tab.er.prt, 10 MEQ PO BID Prescribed by: FRANTZ CORLEY on 08/23/19 141 Pravastatin Sodium 10 Mg Tablet, 10 MG PO HS, (Reported) Sennosides/Docusate Sodium 1 Each Tablet, 2 TAB PO HS, (Reported) Sitagliptin Phosphate 100 Mg Tablet, 50 MG PO DAILY, (Reported) TAKES 1/2 OF A (100 MG) TABLET Vit A/Vit C/Vit E/Zinc/Copper 1 Each Tablet, 1 TAB PO BID, (Reported) Patient Home Medication List Home Medication List Reviewed: Yes Past Iprpeih-Jzdozk-Crdjbt Hx Patient Social History Marrital Status: Alcohol Use: Denies Use Recreational Drug Use: No Smoking Status: Never a Smoker 2nd Hand Smoke Exposure: No Recent Foreign Travel: No Contact w/other who traveled: No Recent Hopitalizations: Yes (CVA 02/02/16) Recent Infectious Disease Expo: No Immunizations Up To Date Tetanus Booster (TDap): Less than 5yrs Date of Pneumonia Vaccine: Jun 12, 2017 Date of Influenza Vaccine: May 20, 2019 Seasonal Allergies Seasonal Allergies: No Surgeries Yes Cardiac, Coronary Stent, Gallbladder, Hysterectomy Respiratory No Currently Using CPAP: No Currently Using BIPAP: No Cardiovascular Yes Cardiomyopathy, Coronary Artery Disease, High Cholesterol, Hypertension, Valvular Heart Disease Neurological Yes Stroke, TIA Reproductive System Hx Reproductive Disorders: No 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, 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 Genitourinary No Gastrointestinal Yes Gastroesophageal Reflux, Diverticulosis Musculoskeletal Yes Arthritis Endocrine History of Endocrine Disorders: Yes Endocrine Disorders: Diabetes, Non-Insulin dep HEENT History of HEENT Disorders: No Cancer No Psychosocial History of Psychiatric Problem: No Integumentary History of Skin or Integumenta: No Blood Transfusions History of Blood Disorders: Yes (Anemia- GI bleed associated) Adverse Reaction to a Blood Tr: No Family Medical History Significant Family History: Hypertension Family Hx: Cardiovascular disease SIBLINGS Diabetes mellitus 19 MOTHER FH: leukemia 19 MOTHER FH: stomach cancer SIBLINGS Hypertension 19 MOTHER SIBLINGS Myocardial infarction 19 MOTHER Pancreatitis 19 FATHER Review of Systems Constitutional: No dizziness, No fever; weakness EENTM: No ear discharge, No hearing loss, No ear pain, No blurred vision, No double vision Respiratory: No cough; dyspnea on exertion Cardiovascular: chest pain Gastrointestinal: no symptoms reported Genitourinary: no symptoms reported : No Musculoskeletal: No back pain, No gout, No joint pain Skin: No change in color, No change in hair/nails Psychiatric/Neurological: Denies Anxiety, Denies Depressed, Denies Emotional Problems Physical Exam Vital Signs Vital Signs - First Documented 08/22/19 08/22/19 11:49 18:40 Temp 36.9 Pulse 81 Resp 16 B/P (MAP) 138/81 (100) Pulse Ox 95 O2 Delivery Room Air O2 Flow Rate 2.00 Capillary Refill : Less Than 3 Seconds Height, Weight, BMI Height: 5'2.00" Weight: 199lbs. 1.0oz. 90.740729dn; 36.51 BMI Method:Stated General Appearance: No Apparent Distress Neck: Normal Inspection, Non Tender, Supple Respiratory: Chest Non Tender, Lungs Clear, Normal Breath Sounds Cardiovascular: Regular Rate, Rhythm, No Murmur Gastrointestinal: Normal Bowel Sounds, Non Tender, Soft Rectal: Deferred Back: Normal Inspection, No CVA Tenderness, No Vertebral Tenderness Extremity: Non Tender, Pedal Edema (near baseline) Neurologic/Psychiatric: Alert, Oriented x3, No Motor/Sensory Deficits, Normal Mood/Affect Skin: Warm/Dry Clinical Quality Measures Admission Status Admission Dx I50.23 Acute on chronic congestive heart failure (systolic) N18.9 CKD stage IV E11.9 DMII I25.10 CAD Admission Status: Observation AMI/AHF: Ejection Fraction: <40 (FAITH/ARB Indicated) D/C Inst. for HF given: Yes Reason FAITH-I/ARB not given: Allergy or Intolerance DVT/VTE Risk/Contraindication: Risk Factor Score Per Nursin RFS Level Per Nursing on Admit: 4+=Very High Short Stay Diagnosis Discharge Diagnosis-Short Stay Admission Diagnosis: I50.23 Acute on chronic congestive heart failure (systolic) N18.9 CKD stage IV E11.9 DMII I25.10 CAD Final Discharge Diagnosis: I50.23 Acute on chronic congestive heart failure (systolic) N18.9 CKD stage IV E11.9 DMII I25.10 CAD Conclusion Labs Laboratory Tests 08/22/19 14:28: Urine Color YELLOW, Urine Clarity CLEAR, Urine pH 6.5, Urine Specific [place] 1.015L, Urine Protein NEGATIVE, Urine Glucose (UA) NEGATIVE, Urine Ketones NEGATIVE, Urine Nitrite NEGATIVE, Urine Bilirubin NEGATIVE, Urine Urobilinogen 0.2, Urine Leukocyte Esterase NEGATIVE, Urine RBC (Auto) NEGATIVE, Urine RBC NONE, Urine WBC NONE, Urine Squamous Epithelial Cells RARE, Urine Crystals NONE, Urine Bacteria NEGATIVE, Urine Casts NONE, Urine Mucus NEGATIVE, Urine Culture Indicated NO 08/22/19 14:50: White Blood Count 7.4, Red Blood Count 4.17L, Hemoglobin 10.5L, Hematocrit 33L, Mean Corpuscular Volume 80, Mean Corpuscular Hemoglobin 25, Mean Corpuscular Hemoglobin Concent 32, Red Cell Distribution Width 15.7H, Platelet Count 237, Mean Platelet Volume 10.8H, Neutrophils (%) (Auto) 75, Lymphocytes (%) (Auto) 16, Monocytes (%) (Auto) 7, Eosinophils (%) (Auto) 1, Basophils (%) (Auto) 1, Neutrophils # (Auto) 5.6, Lymphocytes # (Auto) 1.2, Monocytes # (Auto) 0.6, Eosinophils # (Auto) 0.1, Basophils # (Auto) 0.1, Sodium Level 141, Potassium Level 3.9, Chloride Level 105, Carbon Dioxide Level 24, Anion Gap 12, Blood Urea Nitrogen 23H, Creatinine 1.87H, Estimat Glomerular Filtration Rate 26, BUN/Creatinine Ratio 12, Glucose Level 189H, Calcium Level 9.8, Corrected Calcium 9.8, Total Bilirubin 0.9, Aspartate Amino Transf (AST/SGOT) 12, Alanine Aminotransferase (ALT/SGPT) 11, Alkaline Phosphatase 120, Troponin I < 0.028, C- Reactive Protein High Sensitivity 1.81H, B-Type Natriuretic Peptide 3362.2H, Total Protein 7.0, Albumin 4.0 08/22/19 20:18: Glucometer 204H 08/22/19 21:30: Troponin I < 0.028 08/23/19 03:05: White Blood Count 6.6, Red Blood Count 3.83L, Hemoglobin 9.6L, Hematocrit 30L, Mean Corpuscular Volume 79L, Mean Corpuscular Hemoglobin 25, Mean Corpuscular Hemoglobin Concent 32, Red Cell Distribution Width 15.7H, Platelet Count 227, Mean Platelet Volume 10.9H, Neutrophils (%) (Auto) 69, Lymphocytes (%) (Auto) 19, Monocytes (%) (Auto) 9, Eosinophils (%) (Auto) 2, Basophils (%) (Auto) 1, Neutrophils # (Auto) 4.6, Lymphocytes # (Auto) 1.3, Monocytes # (Auto) 0.6, Eosinophils # (Auto) 0.1, Basophils # (Auto) 0.0, Sodium Level 142, Potassium Level 3.4L, Chloride Level 104, Carbon Dioxide Level 25, Anion Gap 13, Blood Urea Nitrogen 23H, Creatinine 1.85H, Estimat Glomerular Filtration Rate 27, BUN/Creatinine Ratio 12, Glucose Level 109H, Calcium Level 9.4, Corrected Calcium 9.6, Total Bilirubin 0.9, Aspartate Amino Transf (AST/SGOT) 10, Alanine Aminotransferase (ALT/SGPT) 9, Alkaline Phosphatase 102, Troponin I 0.044H, Total Protein 6.4, Albumin 3.8 08/23/19 11:10: Glucometer 202H Microbiology 08/22/19 Influenza Types A,B Antigen (FELECIA) - Final, Complete Conclusion/Plan follow up with Dr. Haywood. follow up with Dr. Little -Will send home on her home dose of lasix. MENDEZ LITTLE MD Aug 23, 2019 13:47
--- NOTE | 2019-08-23 14:13 | Consultation-Cardiology ---
HPI-Cardiology Cardiology Consultation: Date of Consultation 08/23/19 Time Seen by a Provider: 12:00 Date of Admission Attending Physician Mendez Barajas MD Admitting Physician Mendez Barajas MD Consulting Physician VALERIE HARGROVE MD, MA, FACP, FACC, FSCAI, CCDS HPI: Chief Complaint: CC: Shortness of breath Ms. Jones is a 74 year old female admitted to ICU 12 from the ED with c/o increasing SOB and LE swelling. She reports for the last several days she has noted increasing SOB with minimal exertion and bilat LE swelling. She denies any c/o CP, palpitations, syncope or near syncope. She denies any fever or chil ls. She is currently sitting up in a recliner at the bedside and states she is feeling much better and would like to go home. She feels her LE swelling has improved, not yet back to baseline. Review of Systems-Cardiology Review of Systems Constitutional: No chills, No fever; malaise Eyes: No vision change Ears/Nose/Throat: No epistaxis, No recent hearing loss Respiratory: As described under HPI Cardiovascular: As described under HPI Gastrointestinal: constipation; No diarrhea, No nausea, No vomiting Genitourinary: No dysuria, No hematuria Skin: No rash on exposed areas, No ulcerations on exposed areas Psychiatric/Neurological: No anxiety, No depression, No seizure, No focal weakness, No syncope Hematologic: No bleeding abnormalities All Other Systems Reviewed Negative Unless Noted: Yes [id number]-Ihyflr-Fsawdb Hx Patient Social History Alcohol Use: Denies Use Recreational Drug Use: No Smoking Status: Never a Smoker 2nd Hand Smoke Exposure: No Recent Foreign Travel: No Recent Infectious Disease Expo: No Immunizations Up To Date Tetanus Booster (TDap): Less than 5yrs Date of Pneumonia Vaccine: Jun 12, 2017 Date of Influenza Vaccine: May 20, 2019 Past Medical History PMH As described under Assessment. Family Medical History Family Medical History: She reports a family h/o her mother having HTN and CAD. Family History: Cardiovascular disease SIBLINGS Diabetes mellitus 19 MOTHER FH: leukemia 19 MOTHER FH: stomach cancer SIBLINGS Hypertension 19 MOTHER SIBLINGS Myocardial infarction 19 MOTHER Pancreatitis 19 FATHER Allergies and Home Medications Allergies Coded Allergies: Sulfa (Sulfonamide Antibiotics) (Verified Allergy, Unknown, 09/01/05) Home Medications Acetaminophen 500 Mg Tablet, 1,000 MG PO Q6H PRN for PAIN-MILD, (Reported) Aspirin 81 Mg Tablet.dr, 81 MG PO HS, (Reported) Carvedilol 12.5 Mg Tablet, 12.5 MG PO BID, (Reported) Clopidogrel Bisulfate 75 Mg Tablet, 75 MG PO DAILY, (Reported) Furosemide 40 Mg Tablet, 40 MG PO DAILY, (Reported) Losartan Potassium 100 Mg Tablet, 100 MG PO DAILY, (Reported) Multivitamin 1 Each Tablet, 1 TAB PO DAILY, (Reported) [place] 3 Polyunsat Fatty Acids 1,000 Mg Cap, 1,000 MG PO DAILY, (Reported) Omeprazole 20 Mg Capsule.dr, 20 MG PO DAILY, (Reported) Pravastatin Sodium 10 Mg Tablet, 10 MG PO HS, (Reported) Sennosides/Docusate Sodium 1 Each Tablet, 2 TAB PO HS, (Reported) Sitagliptin Phosphate 100 Mg Tablet, 50 MG PO DAILY, (Reported) TAKES 1/2 OF A (100 MG) TABLET Vit A/Vit C/Vit E/Zinc/Copper 1 Each Tablet, 1 TAB PO BID, (Reported) Patient Home Medication List Home Medication List Reviewed: Yes Physical Exam-Cardiology Physical Exam Vital Signs/I&O 08/23/19 08/23/19 08/23/19 08/23/19 04:00 04:00 04:21 06:02 Temp 36.4 Pulse 75 71 Resp 16 16 B/P (MAP) 111/56 (74) Pulse Ox 98 93 97 O2 Delivery Nasal Cannula Room Air Nasal Cannula Nasal Cannula O2 Flow Rate 2.00 2.00 2.00 08/23/19 08/23/19 08/23/19 08/23/19 07:00 08:00 08:35 08:45 Temp 36.3 Pulse 81 82 81 Resp 25 18 B/P (MAP) 107/59 (75) 107/59 (75) Pulse Ox 91 98 O2 Delivery Nasal Cannula Room Air O2 Flow Rate 2.00 08/23/19 08/23/19 08/23/19 08/23/19 09:00 12:00 12:00 12:24 Temp 37.2 Pulse 89 Resp 22 B/P (MAP) 135/62 (86) Pulse Ox 98 96 98 O2 Delivery Room Air Nasal Cannula Room Air O2 Flow Rate 2.00 08/23/19 00:00 Intake Total 120 ml Output Total 650 ml Balance -530 ml Capillary Refill : Less Than 3 Seconds Constitutional: AAO x 3, well-developed, well-nourished HEENT: PERRL, hearing is well preserved, oral hygience is good Neck: No carotid bruit; carotid pulses are 2 + bilaterally Respiratory: No accessory muscle use, No respiratory distress; chest expansion is symmetric, chest is bilaterally symmetric, other (good air entry) Cardiovascular: regular rate-rhythm; No JVD; S1 and S2, systolic murmur (soft HSM at cardiac apex) Gastrointestinal: No tender; soft, round, audible bowel sounds Extremities: other (mod bilat LE swelling) Neurologic/Psychiatric: grossly intact (moves all extremities) Skin: No rash on exposed areas, No ulcerations on exposed areas Data Review Labs Laboratory Tests 08/22/19 14:28: Urine Color YELLOW, Urine Clarity CLEAR, Urine pH 6.5, Urine Specific [place] 1.015L, Urine Protein NEGATIVE, Urine Glucose (UA) NEGATIVE, Urine Ketones NEGATIVE, Urine Nitrite NEGATIVE, Urine Bilirubin NEGATIVE, Urine Urobilinogen 0.2, Urine Leukocyte Esterase NEGATIVE, Urine RBC (Auto) NEGATIVE, Urine RBC NONE, Urine WBC NONE, Urine Squamous Epithelial Cells RARE, Urine Crystals NONE, Urine Bacteria NEGATIVE, Urine Casts NONE, Urine Mucus NEGATIVE, Urine Culture Indicated NO 08/22/19 14:50: White Blood Count 7.4, Red Blood Count 4.17L, Hemoglobin 10.5L, Hematocrit 33L, Mean Corpuscular Volume 80, Mean Corpuscular Hemoglobin 25, Mean Corpuscular Hemoglobin Concent 32, Red Cell Distribution Width 15.7H, Platelet Count 237, Mean Platelet Volume 10.8H, Neutrophils (%) (Auto) 75, Lymphocytes (%) (Auto) 16, Monocytes (%) (Auto) 7, Eosinophils (%) (Auto) 1, Basophils (%) (Auto) 1, Neutrophils # (Auto) 5.6, Lymphocytes # (Auto) 1.2, Monocytes # (Auto) 0.6, Eosinophils # (Auto) 0.1, Basophils # (Auto) 0.1, Sodium Level 141, Potassium Level 3.9, Chloride Level 105, Carbon Dioxide Level 24, Anion Gap 12, Blood Urea Nitrogen 23H, Creatinine 1.87H, Estimat Glomerular Filtration Rate 26, BUN /Creatinine Ratio 12, Glucose Level 189H, Calcium Level 9.8, Corrected Calcium 9.8, Total Bilirubin 0.9, Aspartate Amino Transf (AST/SGOT) 12, Alanine Aminotransferase (ALT/SGPT) 11, Alkaline Phosphatase 120, Troponin I < 0.028, C- Reactive Protein High Sensitivity 1.81H, B-Type Natriuretic Peptide 3362.2H, Total Protein 7.0, Albumin 4.0 08/22/19 20:18: Glucometer 204H 08/22/19 21:30: Troponin I < 0.028 08/23/19 03:05: White Blood Count 6.6, Red Blood Count 3.83L, Hemoglobin 9.6L, Hematocrit 30L, Mean Corpuscular Volume 79L, Mean Corpuscular Hemoglobin 25, Mean Corpuscular Hemoglobin Concent 32, Red Cell Distribution Width 15.7H, Platelet Count 227, Mean Platelet Volume 10.9H, Neutrophils (%) (Auto) 69, Lymphocytes (%) (Auto) 19, Monocytes (%) (Auto) 9, Eosinophils (%) (Auto) 2, Basophils (%) (Auto) 1, Neutrophils # (Auto) 4.6, Lymphocytes # (Auto) 1.3, Monocytes # (Auto) 0.6, Eosinophils # (Auto) 0.1, Basophils # (Auto) 0.0, Sodium Level 142, Potassium Level 3.4L, Chloride Level 104, Carbon Dioxide Level 25, Anion Gap 13, Blood Urea Nitrogen 23H, Creatinine 1.85H, Estimat Glomerular Filtration Rate 27, BUN/Creatinine Ratio 12, Glucose Level 109H, Calcium Level 9.4, Corrected Calcium 9.6, Total Bilirubin 0.9, Aspartate Amino Transf (AST/SGOT) 10, Alanine Aminotransferase (ALT/SGPT) 9, Alkaline Phosphatase 102, Troponin I 0.044H, Total Protein 6.4, Albumin 3.8 08/23/19 11:10: Glucometer 202H Microbiology 08/22/19 Influenza Types A,B Antigen (FELECIA) - Final, Complete Laboratory Tests 08/22/19 14:50 08/23/19 03:05 A/P-Cardiology Assessment/Admission Diagnosis Acute on chronic systolic CHF due to ischemic cardiomyopathy with LVEF 30-35% Minimal troponin elevation: type 2 NH due to CHF CAD. Last cath 03/03/19: 95-99% stenosis of mid LAD stented successfully with Alp Xience 2.25 x 8; prox and ostial LAD 60-70%; up to 50% instent in prox and mid LCX; up to 70% in a long stented segment of a dominant RCA; patent stent w/o restenosis in distal RCA; LVEDP 19 mmHg; LV gram not done (to conserve contrast because of patient's renal insuff) Ischemic cardiomyopathy - has refused defib Echocardiogram of 08/23/19 showed LVEF 30-35%, mild cardiomegaly, mod MR, mod to sev TR. RVSP 60 mmHg not significantly changed compared to a study of Feb 2019) Pulmonary hypertension secondary to chronic L heart failure History of multiple CVA/TIA. Diagnosed with Thromboembolic R MCA Stroke - followed by neurology services Minimal carotid plaque on carotid u/s of Mar 2019 Chronic renal failure, chronic kidney disease stage IV Mild bilat carotid stenoses Hypertension Hyperlipidemia Intolerant to FAITH Inhibitor History of lower gastrointestinal bleeding due to diverticulitis in August 2005 Obesity with a body mass index of approximately 36. Maturity onset DM - followed by her PCP Chronic anemia, followed by Dr Mendez Barajas Discussion and Recomendations * Complex management due to multiple comorbidities (see above * Her heart failure is currently clinically compensated and she insists on going home * I have had a detailed discussion with her regarding her CV issues that include CAD, ischemic cm, and CHF. She wishes to be managed conservatively only. Has not agreed to ICD for SCD prophylaxis * Increase diuretic * Continue bb and ARB and antiplatelet therapy * Monitor labs as outpt * We recommend close outpt f/u for now Clinical Quality Measures DVT/VTE Risk/Contraindication: Risk Factor Score Per Nursin RFS Level Per Nursing on Admit: 4+=Very High VALERIE HARGROVE MD FACP FAC CCDS Aug 23, 2019 14:13
[2019-08-23] MEDS ORDERED: FURO-124 PO (14:15)
[2019-08-23] MEDS ORDERED: POTA10TA36 PO (14:15)
[2019-08-24] MEDS ORDERED: ASPIRIN 81 MG CHEW (CHILDREN'S ASA) PO SCH (09:00)
[2019-08-24] MEDS ORDERED: FUROSEMIDE 40 MG (LASIX) TAB PO SCH (09:00)
== END 2019-08-23 14:28 | disposition home or self-care (01) ==
LOC: EDUNIT# 11:36 → ER 11:38 → ICU 17:30
PROVIDERS: ADMIT Family Medicine; ATTEND Family Medicine
DX: I13.0 Hypertensive heart and chronic kidney disease with heart failure and stage 1 through stage 4 chronic kidney disease, or unspecified chronic kidney disease (principal); I50.23 Acute on chronic systolic (congestive) heart failure; I25.10 Atherosclerotic heart disease of native coronary artery without angina pectoris; I65.23 Occlusion and stenosis of bilateral carotid arteries; I27.20 Pulmonary hypertension, unspecified; I42.8 Other cardiomyopathies; E78.5 Hyperlipidemia, unspecified; E11.22 Type 2 diabetes mellitus with diabetic chronic kidney disease; N18.4 Chronic kidney disease, stage 4 (severe); E66.9 Obesity, unspecified; E78.00 Pure hypercholesterolemia, unspecified; M19.90 Unspecified osteoarthritis, unspecified site; Z88.2 Allergy status to sulfonamides; Z68.36 Body mass index [BMI] 36.0-36.9, adult; Z79.899 Other long term (current) drug therapy; Z79.02 Long term (current) use of antithrombotics/antiplatelets; Z90.710 Acquired absence of both cervix and uterus; Z86.73 Personal history of transient ischemic attack (TIA), and cerebral infarction without residual deficits; Z80.6 Family history of leukemia; Z80.0 Family history of malignant neoplasm of digestive organs
CPT/HCPCS: 36415; 51702; 71045; 80053; 81000; 82962; 83880; 84484; 85025; 86141; 87804; 93005; 93306

== ENCOUNTER 2019-09-27 07:24 | Day surgery (SDC) | payer MEDICARE ==
[~2019-09-27] VITALS: Ht 157.8 cm; Wt 87.3 kg
[2019-09-27] VITALS (8 sets, daily range): BP systolic 128–134; BP diastolic 65–107
[~2019-09-27 07:24] MED LIST changes: +BETA1TAB15 PO; +FURO-124 PO; -OMEP-280 PO; +OMEP20CA18 PO; +POTA10TA36 PO
[2019-09-27] MEDS ORDERED: NS IV 1000 ML 1,000 ML ONE (07:40)
[2019-09-27] MEDS ORDERED: LIDOCAINE 1% INJ 20 ML 20 ML VIAL ONE (07:40)
[2019-09-27] MEDS ORDERED: HEParin (CATH LAB) 1,000 ML IV ONE (07:40)
[2019-09-27] MEDS ORDERED: NS IV 1000 ML 1,000 ML IV SCH ×2 (07:45→12:50)
[2019-09-27] MEDS ORDERED: BACITRACIN INJECTION 50,000 UNIT, SODIUM CHLORIDE 0.9% IRRIGATIO 500 ML IR ONE ×2 (07:45)
[2019-09-27 08:15] LABS: HEMOGLOBIN 10.6 G/DL (11.5-16.0); MEAN PLATELET VOLUME 10.2 FL (7.4-10.4); RED CELL DISTRIBUTION WIDTH 16.7 % (10.0-14.5); WHITE BLOOD COUNT 7.3 10^3/uL (4.3-11.0)
[2019-09-27 08:32] LABS: INR 1.1 (0.8-1.4); PROTHROMBIN TIME PATIENT 14.8 SEC (12.2-14.7)
[2019-09-27] MEDS ORDERED: FURO80TA3 PO (08:32)
[2019-09-27 08:34] LABS: BILIRUBIN,TOTAL 0.6 MG/DL (0.1-1.0); CALCIUM 9.5 MG/DL (8.5-10.1); CREATININE SERUM 1.82 MG/DL (0.60-1.30); POTASSIUM 3.6 MMOL/L (3.6-5.0); TOTAL PROTEIN 7.2 GM/DL (6.4-8.2)
[2019-09-27] MEDS ORDERED: MAGN400T39 PO (08:36)
[2019-09-27] MEDS ORDERED: POTA10CA43 PO (08:36)
[2019-09-27] MEDS ORDERED: ceFAZolin INJECTION 1,000 MG ONE (09:07)
[2019-09-27] MEDS ORDERED: fentaNYL INJECTION 100 MCG/2 ML AMP ONE ×2 (09:34→10:46)
[2019-09-27] MEDS ORDERED: MIDAZOLAM 5 MG/5 ML (VERSED) VIAL ONE ×2 (09:34→10:28)
[2019-09-27] MEDS ORDERED: ceFAZolin INJECTION 1,000 MG in WATER (STERILE) FOR INJECTION 10 ML IV ONE (09:50)
[2019-09-27] MEDS ORDERED: diphenhydrAMINE 50 MG/ML INJ (BENADRYL) ONE (11:15)
[2019-09-27] MEDS ORDERED: NEO/POLY/BAC (NEOSPORIN) OINT 15 GM TUBE ONE (12:09)
--- NOTE | 2019-09-27 12:42 | Cardiac Procedure Note-CS/ASA ---
Pre-Procedure Note Pre-Op Procedure Note H&P Reviewed The H&P was reviewed, patient examined and no changes noted. Date H&P Reviewed: Sep 27, 2019 Time H&P Reviewed: 09:30 Conscious Sedation Pre-Proced Time 09:30 ASA Score 3 For ASA 3 and 4: Consider anesthesia and medical clearance. Also, for patients with a history of failed moderate sedation consider anesthesia. Airway Lungs Heart ASA score ASA 1: a normal healthy patient ASA 2: a patient with a mild systemic disease (mid diabetes, controlled hypertension, obesity ASA 3: a patient with a severe systemic disease that limits activity (angina, COPD, prior Myocardial infarction) ASA 4: a patient with an incapacitating disease that is a constant threat to life (CHF, renal failure) ASA 5: a moribund patient not expected to survive 24 hrs. (ruptured aneurysm) ASA 6: a declared brain- patient whose organs are being harvested. For emergent operations, add the letter E after the classification Mallampati Classification Grade 2 Sedation Plan Analgesia, Amnesia, Plan communicated to team members, Discussed options with patient/fam, Discussed risks with patient/fam The patient is an appropriate candidate to undergo the planned procedure, sedation, and anesthesia. The patient immediately re-assessed prior to indication. VALERIE HARGROVE MD FACP FAC CCDS Sep 27, 2019 12:42
[2019-09-27] MEDS ORDERED: ACETAMINOPHEN 500 MG TAB (TYLENOL) PO PRN (13:00)
[2019-09-27] MEDS ORDERED: PATIENT MAY USE OWN MEDS, ALL PO SCH (13:00)
--- NOTE | 2019-09-27 13:23 | Diagnostic Imaging Report ---
INDICATION: Status post ICD placement. COMPARISON: 08/23/2019 FINDINGS: Frontal and lateral radiographic views of the chest were obtained and show interval placement of left-sided AICD. There is no evidence of pneumothorax or large effusion on either side. Lungs are otherwise clear. Cardiac silhouette is moderately enlarged. Pulmonary vasculature however is within normal limits. Osseous structures show no gross acute abnormalities. IMPRESSION: 1. New left-sided AICD. No pneumothorax. 2. Persistent moderate cardiomegaly. Dictated by: Dictated on workstation # [id number]
--- NOTE | 2019-09-27 17:14 | OPERATIVE REPORT ---
DATE OF SERVICE: 09/27/2019 PREOPERATIVE DIAGNOSIS: Ischemic cardiomyopathy with ejection fraction less than 35% and with chronic systolic congestive heart failure, NYHA class 2. POSTOPERATIVE DIAGNOSIS: Ischemic cardiomyopathy with ejection fraction less than 35% and with chronic systolic congestive heart failure, NYHA class 2. PROCEDURE: Dual chamber implantable cardioverter-defibrillator. ESTIMATED BLOOD LOSS: Less than 20 mL. INDICATIONS: The patient is a 74-year-old lady with ischemic cardiomyopathy who has class 2 to 3 [place] [employer] congestive heart failure (chronic systolic) and whose ejection fraction remains below 35% following optimization of medical therapy. Pacemaker defibrillator implantation was recommended. Informed consent was obtained. DESCRIPTION OF PROCEDURE: She was brought to the cardiac catheterization laboratory in a fasting state. The left prepectoral area was prepared and draped in the usual sterile fashion. Lidocaine 1% was the local anesthesia. We tried to obtain venous access with ultrasound. This was not successful. We gave 20 mL of intravenous contrast through a left forearm vein. This facilitated cannulation of the vein with the Seldinger technique. Two separate sticks were made. Two wires were advanced with the tip was placed in the right atrium. Lidocaine 1% was used for local anesthesia. Sharp and blunt dissection was used to make a pocket. Good hemostasis was assured. The pocket was packed with gauze soaked in an antibiotic solution. The guidewires were used to advance sheaths. The sheaths were used to advance leads. The guidewires were removed after advancing sheath. Sheaths were removed after advancing leads. All lead manipulation was carried out under fluoroscopy. The ventricular lead is a passive fixation lead, which was placed at the right ventricular apex. The atrial lead is an active fixation lead, the tip of which was placed at the right atrial appendage. The leads were sutured to the prepectoral fascia using sleeves and 0 Ethibond. The antibiotic gauze was removed from the pocket. The pocket was thoroughly irrigated with an antibiotic solution. Good hemostasis was assured. The leads were attached to a pacemaker defibrillator. 10 mL of D-stat flowable was injected into the pocket to reduce risk of hematoma. The device was placed and device. The device was placed in a Tyrx pouch and the leads and the device were placed in the pocket and the pocket was closed in 2 layers using 3.0 Vicryl. The patient tolerated the procedure well. The right atrial lead is Medtronic model 905432 with serial #[id number]. The right ventricular lead is Medtronic model #3290S05, with serial #[id number]. The device is a Medtronic model [id number] with serial #[id number]. The atrial capture threshold was 0.9 volts at 0.5 milliseconds and the pacing impedance was 446 ohms. P waves were measured at 2.1 millivolts. Right ventricular lead impedance was 761 ohms. R waves are measured at 8.4 millivolts. Capture threshold was 0.3 volts at 0.5 milliseconds. The patient tolerated the procedure well. Job ID: [id number] DocumentID: [id number] Dictated Date: 09/27/2019 12:31:05 Electro Mechanical Technologist Date: 09/27/2019 17:14:14 Dictated By: VALERIE HARGROVE MD, MA, FACP, FACC,
[2019-09-27] MEDS: KCL 10 MEQ TAB (MICRO K) PO SCH (17:40)
[2019-09-27] MEDS: ceFAZolin INJECTION 1,000 MG in WATER (STERILE) FOR INJECTION 10 ML IV SCH (17:40)
[2019-09-27] MEDS ORDERED: PRAVASTATIN 10 MG PO SCH (21:00)
[2019-09-27] MEDS ORDERED: NON-FORMULARY MEDICATION 1 EA EA (Pravastatin Sodium 10 MG) PO SCH (21:00)
[2019-09-27] MEDS ORDERED: NON-FORMULARY MEDICATION 1 EA EA (Vit A/Vit C/Vit E/Zinc/Copper (Preservision Areds Tablet PO SCH (21:00)
[2019-09-27] MEDS ORDERED: SIMvastatin 10 MG (ZOCOR) TAB PO SCH (21:00)
[2019-09-27] MEDS ORDERED: CARVEDILOL 12.5 MG (COREG) TABLET PO SCH (21:00)
[2019-09-27] MEDS ORDERED: NON-FORMULARY MEDICATION 1 EA EA (Potassium Chloride 10 MEQ) PO SCH ×2 (21:00)
[2019-09-27] MEDS ORDERED: ASPIRIN E.C. 81 MG (ECOTRIN) TAB PO SCH ×2 (21:00)
[2019-09-27] MEDS ORDERED: SENNA W/DOCUSATE (SENOKOT S) TABLET PO SCH (21:00)
[2019-09-28 00:25] VITALS: BP 131/64
[2019-09-28] MEDS: ceFAZolin INJECTION 1,000 MG in WATER (STERILE) FOR INJECTION 10 ML IV SCH (01:45)
[2019-09-28 02:47] LABS: HEMOGLOBIN 9.5 G/DL (11.5-16.0); MEAN PLATELET VOLUME 9.8 FL (7.4-10.4); RED CELL DISTRIBUTION WIDTH 16.4 % (10.0-14.5); WHITE BLOOD COUNT 6.9 10^3/uL (4.3-11.0)
[2019-09-28 03:14] LABS: ALBUMIN 3.6 GM/DL (3.2-4.5); BILIRUBIN,TOTAL 0.5 MG/DL (0.1-1.0); CALCIUM 9.3 MG/DL (8.5-10.1); CREATININE SERUM 1.82 MG/DL (0.60-1.30); POTASSIUM 3.7 MMOL/L (3.6-5.0); TOTAL PROTEIN 6.4 GM/DL (6.4-8.2)
[2019-09-28 04:26] VITALS: BP 129/80
[2019-09-28] MEDS: KCL 10 MEQ TAB (MICRO K) PO SCH (06:38)
[2019-09-28] MEDS ORDERED: MULTIVIT W/MINERALS TAB (THERAGRAN M) PO SCH (07:00)
[2019-09-28] MEDS ORDERED: FUROSEMIDE 80 MG TABLET PO SCH (07:00)
[2019-09-28] MEDS ORDERED: FUROSEMIDE 40 MG (LASIX) TAB PO SCH (07:00)
[2019-09-28 08:00] VITALS: BP 149/86
[2019-09-28] MEDS ORDERED: MAGNESIUM OXIDE (MAG-OX)400 MG TAB PO SCH (08:00)
--- NOTE | 2019-09-28 08:35 | Progress Note - Cardiology ---
Cardiology SOAP Progress Note Subjective: No cp or palp or syncope or shortness of breath Soreness at site of device implantation No focal weakness No leg swelling Wishes to go home Objective: I&O/Vital Signs 09/27/19 09/27/19 09/28/19 09/28/19 20:55 21:13 00:25 01:00 Temp 36.3 Pulse 85 76 70 Resp 21 20 B/P (MAP) 128/70 (89) 131/64 (86) Pulse Ox 95 93 O2 Delivery Nasal Cannula Room Air Room Air O2 Flow Rate 2.00 09/28/19 09/28/19 04:26 04:31 Temp 36.4 Pulse 80 Resp 33 B/P (MAP) 129/80 (96) O2 Delivery Room Air 09/28/19 00:00 Intake Total 450 ml Output Total 450 ml Balance 0 ml Weight (Pounds): 199 Weight (Ounces): 1.0 Weight (Calculated Kilograms): 90.380223 Device Insertion Site: without hematoma, no signs of inflammation Bruising: moderated bruising Constitutional: AAO x 3, well-developed, well-nourished Respiratory: No accessory muscle use; other (good bilateral air entry) Cardiovascular: regular rate-rhythm, S1 and S2, systolic murmur (soft BEBETO at card base) Gastrointestional: No tender; soft; No guarding, No rebound; audible bowel so unds Extremities: No clubbing, No cyanosis, No significant edema Neurologic/Psychiatric: oriented x 3, other (moves all limbs equally) Skin: No rash on exposed areas, No ulcerations on exposed areas Results/Procedures: Labs Laboratory Tests 09/28/19 02:29: White Blood Count 6.9, Red Blood Count 3.93L, Hemoglobin 9.5L, Hematocrit 30L, Mean Corpuscular Volume 76L, Mean Corpuscular Hemoglobin 24L, Mean Corpuscular Hemoglobin Concent 32, Red Cell Distribution Width 16.4H, Platelet Count 207, Mean Platelet Volume 9.8, Sodium Level 141, Potassium Level 3.7, Chloride Level 105, Carbon Dioxide Level 21, Anion Gap 15H, Blood Urea Nitrogen 25H, Creatinine 1.82H, Estimat Glomerular Filtration Rate 27, BUN/Creatinine Ratio 14, Glucose Level 143H, Calcium Level 9.3, Corrected Calcium 9.6, Magnesium Level 1.8, Total Bilirubin 0.5, Aspartate Amino Transf (AST/SGOT) 15, Alanine Aminotransferase (ALT/SGPT) 8, Alkaline Phosphatase 107, Total Protein 6.4, Albumin 3.6 Microbiology 09/27/19 MRSA Screen - Final, Complete MRSA not isolated Laboratory Tests 09/27/19 08:04 09/28/19 02:29 A/P: Assessment: Ischemic cm with NYHA II - III CHF, systolic, chronic S/p dual ch pacemaker-defib on 09/27/19 CAD. Last cath 03/03/19: 95-99% stenosis of mid LAD stented successfully with Alp Xience 2.25 x 8; prox and ostial LAD 60-70%; up to 50% instent in prox and mid LCX; up to 70% in a long stented segment of a dominant RCA; patent stent w/o restenosis in distal RCA; LVEDP 19 mmHg; LV gram not done (to conserve contrast because of patient's renal insuff) Echocardiogram of 08/23/19 showed LVEF 30-35%, mild cardiomegaly, mod MR, mod to sev TR. RVSP 60 mmHg not significantly changed compared to a study of Feb 2019) Pulmonary hypertension secondary to chronic L heart failure History of multiple CVA/TIA. 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 Functioning normally. Care discussed. Outpt f/u advised * Educated in management of CHF * Questions answered VALERIE HARGROVE MD FACP FACC CCDS Sep 28, 2019 08:35
--- NOTE | 2019-09-28 08:51 | Discharge Inst-Cardiology ---
Discharge Inst-Cardiac Discharge Medications Continued Medications: Acetaminophen (Acetaminophen) 500 Mg Tablet 1000 MG PO Q6H PRN for PAIN-MILD, TAB Aspirin (Aspirin EC) 81 Mg Tablet.dr 81 MG PO HS, TAB Carvedilol (Carvedilol) 12.5 Mg Tablet 12.5 MG PO BID, TAB Clopidogrel Bisulfate (Clopidogrel) 75 Mg Tablet 75 MG PO DAILY, TAB Furosemide (Furosemide) 80 Mg Tablet 80 MG PO DAILY, TAB Losartan Potassium (Losartan Potassium) 100 Mg Tablet 100 MG PO DAILY, TAB Magnesium Oxide (Magnesium) 400 Mg Tablet 400 MG PO DAILY, TAB Multivitamin (Once Daily) 1 Each Tablet 1 TAB PO DAILY, TAB [place] 3 Polyunsat Fatty Acids (Fish Oil 1,000 mg Capsule) 1,000 Mg Cap 1000 MG PO DAILY, CAP Omeprazole (Omeprazole) 20 Mg Capsule.dr 20 MG PO DAILY, CAP Potassium Chloride (Potassium Chloride) 10 Meq Capsule.er 10 MEQ PO BID, CAP Pravastatin Sodium (Pravastatin Sodium) 10 Mg Tablet 10 MG PO HS, TAB Sennosides/Docusate Sodium (Senna S Tablet) 1 Each Tablet 2 TAB PO HS, TAB Sitagliptin Phosphate (Januvia) 100 Mg Tablet 50 MG PO DAILY, TAB TAKES 1/2 OF A (100 MG) TABLET Vit A/Vit C/Vit E/Zinc/Copper (Preservision Areds Tablet) 1 Each Tablet 1 TAB PO BID, TAB Discontinued Medications: Potassium Chloride (Potassium Chloride) 10 Meq Tab.er.prt 10 MEQ PO BID, #60 TAB Patient Instructions Patient Instructions: F/u at Dr Haywood's on 09/30/19 for wound check F/u at Dr Haywood for doctor visit in 2 weeks VALERIE HAYWOOD MD FACP FAC CCDS Sep 28, 2019 08:51
[2019-09-28] MEDS ORDERED: NON-FORMULARY MEDICATION 1 EA EA (Magnesium Oxide (Magnesium) 400 MG) PO SCH (09:00)
[2019-09-28] MEDS ORDERED: OMEPRAZOLE 20 MG (PriLOSEC) CAP NON-FORMULARY PO SCH (09:00)
[2019-09-28] MEDS ORDERED: LOSARTAN 100 MG (COZAAR) TABLET PO SCH (09:00)
[2019-09-28] MEDS ORDERED: MULTIVITAMIN PO SCH (09:00)
[2019-09-28] MEDS ORDERED: OMEGA 3 (FISH OIL) 1000 MG CAP PO SCH (09:00)
[2019-09-28] MEDS ORDERED: JANUVIA 100 MG PO SCH (09:00)
[2019-09-28] MEDS ORDERED: PANTOPRAZOLE 20 MG TABLET (PROTONIX) PO SCH (09:00)
[2019-09-28] MEDS ORDERED: CLOPIDOGREL 75 MG (PLAVIX) TABLET PO SCH ×2 (09:00)
[2019-09-28] MEDS ORDERED: NON-FORMULARY MEDICATION 1 EA EA (Furosemide 80 MG) PO SCH (09:00)
[2019-09-28] MEDS ORDERED: LINAGLIPTIN (TRADJENTA) 5 MG TABLET PO SCH (09:00)
[2019-09-28] MEDS ORDERED: NON-FORMULARY MEDICATION 1 EA EA (Sitagliptin Phosphate (Januvia) 50 MG) PO SCH (09:00)
== END 2019-09-28 09:45 | disposition home or self-care (01) ==
LOC: CATH 07:24 → ICU 13:33 → CATH 09-28 09:45
PROVIDERS: ATTEND Internal Medicine Cardiovascular Disease
DX: I25.5 Ischemic cardiomyopathy (principal); I50.23 Acute on chronic systolic (congestive) heart failure; I42.0 Dilated cardiomyopathy; I25.10 Atherosclerotic heart disease of native coronary artery without angina pectoris; I13.0 Hypertensive heart and chronic kidney disease with heart failure and stage 1 through stage 4 chronic kidney disease, or unspecified chronic kidney disease; I27.20 Pulmonary hypertension, unspecified; I65.23 Occlusion and stenosis of bilateral carotid arteries; I07.1 Rheumatic tricuspid insufficiency; E78.5 Hyperlipidemia, unspecified; E66.9 Obesity, unspecified; N18.4 Chronic kidney disease, stage 4 (severe); E11.22 Type 2 diabetes mellitus with diabetic chronic kidney disease; D64.9 Anemia, unspecified; Z68.35 Body mass index [BMI] 35.0-35.9, adult; Z88.2 Allergy status to sulfonamides; Z79.899 Other long term (current) drug therapy; Z79.82 Long term (current) use of aspirin; Z79.02 Long term (current) use of antithrombotics/antiplatelets; Z79.84 Long term (current) use of oral hypoglycemic drugs; Z80.9 Family history of malignant neoplasm, unspecified
CPT/HCPCS: 33249; 36415; 71046; 80053; 80061; 83735; 85027; 85610; 85730; 87081; 93005

== ENCOUNTER 2021-02-23 16:49 | Emergency (ER) | payer MEDICARE ==
[~2021-02-23] VITALS: Ht 157 cm; Wt 86.0 kg
[~2021-02-23 16:49] MED LIST changes: +ASPI-1238 PO; -ASPI-983 PO; +FURO80TA3 PO; +MAGN400T39 PO; +PANT20TA18 PO; -PANT20TA3 PO; -PANT40TA3 PO; +PANT40TA52 PO; +POTA10CA43 PO
[2021-02-23] MEDS ORDERED: ACETAMINOPHEN 500 MG TAB (TYLENOL) PO STA (18:00)
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
[2021-02-23 18:23] LABS: HEMATOCRIT 32 % (35-52); HEMOGLOBIN 10.8 g/dL (11.5-16.0); MEAN CORPUSCULAR HEMOGLOBIN 26 pg (25-34); MEAN CORPUSCULAR HGB CONC 34 g/dL (32-36); MEAN CORPUSCULAR VOLUME 78 fL (80-99); PLATELET COUNT 193 10^3/uL (130-400); WHITE BLOOD COUNT 7.2 10^3/uL (4.3-11.0)
[2021-02-23 18:33] LABS: ALBUMIN 3.9 GM/DL (3.2-4.5); POTASSIUM 5.5 MMOL/L (3.6-5.0)
[2021-02-23 18:35] LABS: CALCIUM 9.5 MG/DL (8.5-10.1); INR 1.2 (0.8-1.4); PROTHROMBIN TIME PATIENT 15.3 SEC (12.2-14.7)
[2021-02-23 18:36] LABS: TOTAL PROTEIN 7.5 GM/DL (6.4-8.2)
[2021-02-23 18:39] LABS: CREATININE SERUM 2.21 MG/DL (0.60-1.30)
[2021-02-23 18:41] LABS: BILIRUBIN,DIRECT 0.5 MG/DL (0.0-0.3); BILIRUBIN,INDIRECT 0.5 MG/DL
[2021-02-23] MEDS ORDERED: NS IV 500 ML 500 ML IV ONE (18:45)
[2021-02-23 18:47] LABS: BILIRUBIN,URINE NEGATIVE (NEGATIVE); CLARITY,URINE SL CLOUDY; COLOR,URINE YELLOW; GLUCOSE, URINE (UA) NEGATIVE (NEGATIVE); KETONES,URINE NEGATIVE (NEGATIVE); LEUKOCYTE ESTERASE ,URINE NEGATIVE (NEGATIVE); NITRITE,URINE NEGATIVE (NEGATIVE); PH,URINE 5.5 (5-9); PROTEIN,URINE NEGATIVE (NEGATIVE)
[2021-02-23 18:53] LABS: BACTERIA,URINE LARGE /HPF
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
[2021-02-23] MEDS ORDERED: ACETAMINOPHEN 500 MG TAB (TYLENOL) PO ONE (23:30)
[2021-02-23 23:50] VITALS: BP 134/74
== END 2021-02-23 23:50 | disposition short-term general hospital (02) ==
LOC: EDUNIT# 16:49 → ER 16:53
DX: S06.5X0A Traumatic subdural hemorrhage without loss of consciousness, initial encounter (principal); S60.011A Contusion of right thumb without damage to nail, initial encounter; E11.22 Type 2 diabetes mellitus with diabetic chronic kidney disease; I12.9 Hypertensive chronic kidney disease with stage 1 through stage 4 chronic kidney disease, or unspecified chronic kidney disease; N18.9 Chronic kidney disease, unspecified; I25.10 Atherosclerotic heart disease of native coronary artery without angina pectoris; E78.00 Pure hypercholesterolemia, unspecified; K21.9 Gastro-esophageal reflux disease without esophagitis; Z86.73 Personal history of transient ischemic attack (TIA), and cerebral infarction without residual deficits; Z79.82 Long term (current) use of aspirin; Z79.899 Other long term (current) drug therapy; Z79.01 Long term (current) use of anticoagulants; V89.2XXA Person injured in unspecified motor-vehicle accident, traffic, initial encounter
CPT/HCPCS: 36415; 70450; 71045; 72125; 73090; 73130; 73562; 80048; 80076; 81000; 85027; 85610; 85730; 86850; 86900; 86901; 87077; 87088; 87186; 93005; 93041; 96360

== ENCOUNTER 2022-09-11 08:58 | Inpatient (IN) | payer MEDICARE ==
[~2022-09-11] VITALS: Ht 157 cm; Wt 81.6 kg
[~2022-09-11 08:58] MED LIST changes: +POTA-177 PO; -POTA10CA43 PO; +POTA10CA44 PO; -POTA10TA36 PO; -TRIA1CAP4 PO; +TRIA1CAP84 PO
--- NOTE | 2022-09-11 09:01 | ED GI ---
General Stated Complaint: BLOODY STOOLS History of Present Illness Date Seen by Provider: Sep 11, 2022 Time Seen by Provider: 09:00 Initial Comments 77-year-old female presents with bloody stools. She reports that this morning she has been having bright red blood in her stools and that she does feel like she needs to continue to have bowel movements. She reports that she has had this happen about 20 years ago when she had a polyps on her colon. Her last colonoscopy was about 10 years ago. She is not complaining abdominal pain. She is on a blood thinner. No dizziness, shortness of breath or other systemic complaints. Allergies and Home Medications Allergies Coded Allergies: Sulfa (Sulfonamide Antibiotics) (Verified Allergy, Unknown, 09/01/05) Patient Home Medication List Home Medication List Reviewed: Yes Acetaminophen (Acetaminophen) 500 Mg Tablet, 1,000 MG PO Q6H PRN for PAIN-MILD, (Reported) Entered as Reported by: FLOR LAU on 02/28/19 1400 Aspirin (Aspirin EC) 81 Mg Tablet.dr, 81 MG PO HS, (Reported) Entered as Reported by: PHILL LATHAM on 08/23/19 1127 Carvedilol (Carvedilol) 12.5 Mg Tablet, 12.5 MG PO BID, (Reported) Entered as Reported by: NIK MORILLO on 09/23/16 1031 Clopidogrel Bisulfate (Clopidogrel) 75 Mg Tablet, 75 MG PO DAILY, (Reported) Entered as Reported by: NIK MORILLO on 02/04/16 1408 Furosemide (Furosemide) 80 Mg Tablet, 80 MG PO DAILY, (Reported) Entered as Reported by: SOCORRO BARRIOS on 09/27/19 0832 Losartan Potassium (Losartan Potassium) 100 Mg Tablet, 100 MG PO DAILY, (Reported) Entered as Reported by: NIK MORILLO on 09/23/16 1002 Magnesium Oxide (Magnesium) 400 Mg Tablet, 400 MG PO DAILY, (Reported) Entered as Reported by: SOCORRO BARRIOS on 09/27/19 0836 Multivitamin (Once Daily) 1 Each Tablet, 1 TAB PO DAILY, (Reported) Entered as Reported by: FLOR LAU on 02/28/19 1400 [place] 3 Polyunsat Fatty Acids (Fish Oil 1,000 mg Capsule) 1,000 Mg Cap, 1,000 MG PO DAILY, (Reported) Entered as Reported by: TAZ LONGO on 10/13/15 1655 Omeprazole (Omeprazole) 20 Mg Capsule.dr, 20 MG PO DAILY, (Reported) Entered as Reported by: NIK MORILLO on 09/23/16 1019 Potassium Chloride (Potassium Chloride) 10 Meq Capsule.er, 10 MEQ PO BID, (Reported) Entered as Reported by: SOCORRO BARRIOS on 09/27/19 0836 Pravastatin Sodium (Pravastatin Sodium) 10 Mg Tablet, 10 MG PO HS, (Reported) Entered as Reported by: FLOR LAU on 02/28/19 1400 Sennosides/Docusate Sodium (Senna S Tablet) 1 Each Tablet, 2 TAB PO HS, (Reported) Entered as Reported by: FLOR LAU on 02/28/19 1400 Sitagliptin Phosphate (Januvia) 100 Mg Tablet, 50 MG PO DAILY, (Reported) Entered as Reported by: NIK MORILLO on 02/04/16 1408 Vit A/Vit C/Vit E/Zinc/Copper (Preservision Areds Tablet) 1 Each Tablet, 1 TAB PO BID, (Reported) Entered as Reported by: PHILL LATHAM on 08/23/19 1127 Review of Systems Review of Systems Constitutional: No chills, No fever EENTM: No Symptoms Reported Respiratory: No Symptoms Reported Cardiovascular: No Symptoms Reported Gastrointestinal: See HPI, Rectal Bleeding Genitourinary: No Symptoms Reported Musculoskeletal: no symptoms reported Skin: no symptoms reported Psychiatric/Neurological: No Symptoms Reported Past Zpjdchh-Pbhtkb-Ebbvre Hx Immunizations Up To Date Tetanus Booster (TDap): Less than 5yrs Seasonal Allergies Seasonal Allergies: No Past Medical History Surgeries: Yes Coronary Stent, Gallbladder, Hysterectomy Respiratory: No Currently Using CPAP: No Currently Using BIPAP: No Cardiac: Yes Cardiomyopathy, Coronary Artery Disease, High Cholesterol, Hypertension, Valvular Heart Disease Neurological: Yes Stroke, TIA Reproductive Disorders: No Female 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 1.0oz. 90.253973ux; 34.00 BMI Method:Stated General Appearance: WD/WN, no apparent distress Respiratory: lungs clear, normal breath sounds Cardiovascular: normal peripheral pulses, regular rate, rhythm Rectal: heme positive stool, other (Bloody stool) Neurologic/Psychiatric: alert, normal mood/affect, oriented x 3 Skin: normal color, warm/dry Progress/Results/Core Measures Results/Orders Lab Results Laboratory Tests Test 09/11/22 09:11 Range/Units White Blood Count 7.9 4.3-11.0 10^3/uL Red Blood Count 3.65 L 3.80-5.11 10^6/uL Hemoglobin 10.3 L 11.5-16.0 g/dL Hematocrit 30 L 35-52 % Mean Corpuscular Volume 82 80-99 fL Mean Corpuscular Hemoglobin 28 25-34 pg Mean Corpuscular Hemoglobin Concent 34 32-36 g/dL Red Cell Distribution Width 14.4 10.0-14.5 % Platelet Count 258 130-400 10^3/uL Mean Platelet Volume 11.1 9.0-12.2 fL Immature Granulocyte % (Auto) 0 % Neutrophils (%) (Auto) 64 42-75 % Lymphocytes (%) (Auto) 26 12-44 % Monocytes (%) (Auto) 7 0-12 % Eosinophils (%) (Auto) 2 0-10 % Basophils (%) (Auto) 1 0-10 % Neutrophils # (Auto) 5.1 1.8-7.8 10^3/uL Lymphocytes # (Auto) 2.0 1.0-4.0 10^3/uL Monocytes # (Auto) 0.6 0.0-1.0 10^3/uL Eosinophils # (Auto) 0.2 0.0-0.3 10^3/uL Basophils # (Auto) 0.1 0.0-0.1 10^3/uL Immature Granulocyte # (Auto) 0.0 0.0-0.1 10^3/uL Prothrombin Time 15.3 H 12.2-14.7 SEC INR Comment 1.2 0.8-1.4 Activated Partial Thromboplast Time 33 24-35 SEC Sodium Level 139 135-145 MMOL/L Potassium Level 4.8 3.6-5.0 MMOL/L Chloride Level 108 H 98-107 MMOL/L Carbon Dioxide Level 19 L 21-32 MMOL/L Anion Gap 12 5-14 MMOL/L Blood Urea Nitrogen 57 H 7-18 MG/DL Creatinine 2.43 H 0.60-1.30 MG/DL Estimat Glomerular Filtration Rate 20 BUN/Creatinine Ratio 23 Glucose Level 149 H 70-105 MG/DL Calcium Level 9.2 8.5-10.1 MG/DL Corrected Calcium 9.4 8.5-10.1 MG/DL Magnesium Level 2.0 1.6-2.4 MG/DL Total Bilirubin 0.7 0.1-1.0 MG/DL Aspartate Amino Transf (AST/SGOT) 21 5-34 U/L Alanine Aminotransferase (ALT/SGPT) 10 0-55 U/L Alkaline Phosphatase 143 H 40-136 U/L Total Protein 7.1 6.4-8.2 GM/DL Albumin 3.8 3.2-4.5 GM/DL My Orders Orders - SAUCEDO,JAMARI L DO Cbc With Automated Diff (09/11/22 09:02) Comprehensive Metabolic Panel (09/11/22 09:02) Magnesium (09/11/22 09:02) Protime With Inr (09/11/22 09:02) Partial Thromboplastin Time (09/11/22 09:02) Type And Screen (09/11/22 09:02) Ed Iv/Invasive Line Start (09/11/22 09:02) Code/Resuscitation (09/11/22 10:55) Ed Admission (Communication) (09/11/22 10:55) Vital Signs/I&O 09/11/22 09:01 Temp 35.9 Pulse 82 Resp 18 B/P (MAP) 128/66 (86) Pulse Ox 95 Progress Progress Note : Progress Note Patient was having active bright red blood per rectum. Patient's labs were reviewed along with previous labs and she does appear to be at her baseline hemoglobin and creatinine. Patient is on Plavix which makes her high risk. Discussed with both Dr. Castillo and Dr. [place]. We will place her in observation medical floor with telemetry. She will be placed on a clear liquid diet and her Plavix held. They will reevaluate during her observational stay and determine what further work-up is needed at this time. Patient was stable upon admission to the floor. Departure Impression Primary Impression: Rectal bleed Disposition: ADMITTED INPATIENT Condition: Stable Admissions Decision to Admit Reason: Admit from ER (General) Departure-Patient Inst. Referrals: JOSHUA LITTLE MD (PCP/Family) Primary Care Physician Patient Instructions: Bloody Stools, Adult (DC) JAMARI SAUCEDO DO Sep 11, 2022 09:01
[2022-09-11 09:29] LABS: BASOPHILS # (AUTO) 0.1 10^3/uL (0.0-0.1); BASOPHILS % (AUTO) 1 % (0-10); EOSINOPHILS # (AUTO) 0.2 10^3/uL (0.0-0.3); EOSINOPHILS % (AUTO) 2 % (0-10); HEMATOCRIT 30 % (35-52); HEMOGLOBIN 10.3 g/dL (11.5-16.0); LYMPHOCYTES % (AUTO) 26 % (12-44); MEAN CORPUSCULAR HEMOGLOBIN 28 pg (25-34); MEAN CORPUSCULAR HGB CONC 34 g/dL (32-36); MEAN CORPUSCULAR VOLUME 82 fL (80-99); MEAN PLATELET VOLUME 11.1 fL (9.0-12.2); MONOCYTES # (AUTO) 0.6 10^3/uL (0.0-1.0); MONOCYTES % (AUTO) 7 % (0-12); NEUTROPHILS # (AUTO) 5.1 10^3/uL (1.8-7.8); NEUTROPHILS % (AUTO) 64 % (42-75); PLATELET COUNT 258 10^3/uL (130-400); WHITE BLOOD COUNT 7.9 10^3/uL (4.3-11.0)
[2022-09-11 09:48] LABS: ALBUMIN 3.8 GM/DL (3.2-4.5); POTASSIUM 4.8 MMOL/L (3.6-5.0)
[2022-09-11 09:49] LABS: CALCIUM 9.2 MG/DL (8.5-10.1)
[2022-09-11 09:50] LABS: INR 1.2 (0.8-1.4); PROTHROMBIN TIME PATIENT 15.3 SEC (12.2-14.7)
[2022-09-11 09:51] LABS: TOTAL PROTEIN 7.1 GM/DL (6.4-8.2)
[2022-09-11 09:52] LABS: BILIRUBIN,TOTAL 0.7 MG/DL (0.1-1.0)
[2022-09-11 09:54] LABS: CREATININE SERUM 2.43 MG/DL (0.60-1.30)
[2022-09-11] MEDS ORDERED: EZET-85 PO (11:37)
[2022-09-11] MEDS ORDERED: EMPA1TAB15 PO (11:37)
[2022-09-11] MEDS ORDERED: ONDANSETRON 4 MG/2 ML (SDV) Z0FRAN IV PRN (13:30)
[2022-09-11] MEDS ORDERED: ANTACID SUSP 30 ML UDC (MYLANTA) PO PRN (13:30)
[2022-09-11] MEDS ORDERED: MELATONIN 3 MG TABLET PO PRN (13:30)
[2022-09-11] MEDS ORDERED: ACETAMINOPHEN 325 MG TABLET PO PRN (13:30)
--- NOTE | 2022-09-11 13:55 | History & Physical ---
DONNELLANDREI 09/11/22 1355: History of Present Illness History of Present Illness Reason for visit/HPI Patient is a 77-year-old female with a history of CAD with stents, CKD, implantable defibrillator, HTN, DM, HLD, and multiple CVAs that presents to the ED on 09/11 with chief complaint of bloody stools. She reports that when she woke up this morning she felt a small amount of liquid which was bright red when she wiped with a tissue. The patient then went to the bathroom and passed a large amount of bright red liquid stool. She denies any dark or tarry stools and estimates that she passed about a pint and a half of blood in total. The bleeding slowed down after a couple hours and per the patient stopped around 11:00. She reports that she is feeling well and has not had any abdominal pain, N/V, or lightheadedness. Patient was admitted in 2005 for a GI bleed, and was found to have a diverticular bleed. The patient reports that this current episode feels very similar to then. Patient has no other complaints. Date of Admission Sep 11, 2022 at 12:53 Time Seen by a Provider: 13:00 I consulted on this patient on 09/11/22 13:45 Attending Physician Mendez Barajas MD Admitting Physician Admitting Physician: Belkys Mills MD Attending Physician: Belkys Mills MD Consult Allergies and Home Medications Allergies Coded Allergies: Sulfa (Sulfonamide Antibiotics) (Verified Allergy, Unknown, 09/01/05) Patient Home Medication List Home Medication List Reviewed: Yes Aspirin (Aspirin EC) 81 Mg Tablet.dr, 81 MG PO HS, (Reported) Entered as Reported by: PHILL LATHAM on 08/23/19 1127 Last Action: Reviewed Carvedilol (Carvedilol) 12.5 Mg Tablet, 12.5 MG PO BID, (Reported) Entered as Reported by: NIK MORILLO on 09/23/16 1031 Last Action: Reviewed Clopidogrel Bisulfate (Clopidogrel) 75 Mg Tablet, 75 MG PO DAILY, (Reported) Entered as Reported by: NIK MORILLO on 02/04/16 1408 Last Action: Reviewed Empagliflozin/Metformin HCl (Synjardy Xr 10-1,000 mg Tablet) 10 Mg-1,000 Mg Tab.bp.24h, 1 EACH PO DAILY, (Reported) Entered as Reported by: AMEENA SONI on 09/11/221136 Last Action: Reviewed Furosemide (Furosemide) 40 Mg Tablet, 40 MG PO DAILY, (Reported) Entered as Reported by: FLOR LAU on 09/11/221616 Last Action: Reviewed Losartan Potassium (Losartan Potassium) 100 Mg Tablet, 100 MG PO DAILY, (Reported) Entered as Reported by: NIK MORILLO on 09/23/16 1002 Last Action: Reviewed Magnesium Oxide (Magnesium) 400 Mg Magnesium Tablet, 400 MG PO DAILY, (Reported) Entered as Reported by: FLOR LAU on 09/11/221616 Last Action: Reviewed Multivitamin (Multivitamin) 1 Each Tablet, 1 EACH PO DAILY, (Reported) Entered as Reported by: FLOR LAU on 09/11/221616 Last Action: Reviewed Omeprazole (Omeprazole) 20 Mg Capsule.dr, 20 MG PO DAILY, (Reported) Entered as Reported by: NIK MORILLO on 09/23/16 1019 Last Action: Reviewed Potassium Chloride (Potassium Chloride) 10 Meq Capsule.er, 10 MEQ PO BID, (Reported) Entered as Reported by: SOCORRO BARRIOS on 09/27/19 0836 Last Action: Reviewed Rosuvastatin Calcium (Rosuvastatin Calcium) 10 Mg Tablet, 10 MG PO HS, (Reported) Entered as Reported by: FLOR LAU on 09/11/221616 Last Action: Reviewed Vit C/E/Zn/Coppr/Lutein/Zeaxan (Preservision Areds 2 Softgel) 250MG-90MG Capsule, 1 EACH PO BID, (Reported) Entered as Reported by: FLOR LAU on 09/11/221616 Last Action: Reviewed Discontinued Medications Acetaminophen (Acetaminophen) 500 Mg Tablet, 1,000 MG PO Q6H PRN for PAIN-MILD, (Reported) Discontinued Reason: No Longer Taking Entered as Reported by: FLOR LAU on 02/28/19 1400 Last Action: Discontinued Ezetimibe/Rosuvastatin Calcium (Rosuvastatin-Ezetimibe 10-10Mg) 10 Mg-10 Mg Tablet, 1 EACH PO, (Reported) Discontinued Reason: No Longer Taking Entered as Reported by: AMEENA SONI on 09/11/221136 Last Action: Discontinued Furosemide (Furosemide) 80 Mg Tablet, 80 MG PO DAILY, (Reported) Discontinued Reason: No Longer Taking Entered as Reported by: SOCORRO BARRIOS on 09/27/19 0832 Last Action: Discontinued Magnesium Oxide (Magnesium) 400 Mg Tablet, 400 MG PO DAILY, (Reported) Discontinued Reason: No Longer Taking Entered as Reported by: SOCORRO ABRRIOS on 09/27/19 0836 Last Action: Discontinued Multivitamin (Once Daily) 1 Each Tablet, 1 TAB PO DAILY, (Reported) Discontinued Reason: No Longer Taking Entered as Reported by: FLOR LAU on 02/28/19 1400 Last Action: Discontinued [place] 3 Polyunsat Fatty Acids (Fish Oil 1,000 mg Capsule) 1,000 Mg Cap, 1,000 MG PO DAILY, (Reported) Discontinued Reason: No Longer Taking Entered as Reported by: TAZ LONGO on 10/13/15 1655 Last Action: Discontinued Pravastatin Sodium (Pravastatin Sodium) 10 Mg Tablet, 10 MG PO HS, (Reported) Discontinued Reason: No Longer Taking Entered as Reported by: FLOR LAU on 02/28/19 1400 Last Action: Discontinued Sennosides/Docusate Sodium (Senna S Tablet) 1 Each Tablet, 2 TAB PO HS, (Reported) Discontinued Reason: No Longer Taking Entered as Reported by: FLOR LAU on 02/28/19 1400 Last Action: Discontinued Sitagliptin Phosphate (Januvia) 100 Mg Tablet, 50 MG PO DAILY, (Reported) Discontinued Reason: No Longer Taking Entered as Reported by: NIK MORILLO on 02/04/16 1408 Last Action: Discontinued Vit A/Vit C/Vit E/Zinc/Copper (Preservision Areds Tablet) 1 Each Tablet, 1 TAB PO BID, (Reported) Discontinued Reason: No Longer Taking Entered as Reported by: PHILL LATHAM on 08/23/19 1127 Last Action: Discontinued Past Dmtzrie-Vwnhnm-Dthofg Hx Patient Social History Tobacco Use?: No Substance use?: No Alcohol Use?: No Pt feels they are or have been: No Immunizations Up To Date Date of Influenza Vaccine: May 20, 2019 First/Initial COVID19 Vaccinat: AUG Second COVID19 Vaccination Zack: AUG Date of Pneumonia Vaccine: Jun 12, 2017 Seasonal Allergies Seasonal Allergies: No Current Status Advance Directives: No Primary Language: Bahraini Preferred Spoken Language: Bahraini Past Medical History Surgeries: Coronary Stent, Gallbladder, Hysterectomy Currently Using CPAP: No Currently Using BIPAP: No Cardiomyopathy, Coronary Artery Disease, High Cholesterol, Hypertension, Valvular Heart Disease Stroke, TIA 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, 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 Gastroesophageal Reflux, Diverticulosis Arthritis Diabetes, Non-Insulin dep Blood Disorders: Yes (Anemia- GI bleed associated) Adverse Reaction/Blood Tranf: No Family Medical History Cardiovascular disease SIBLINGS Diabetes mellitus 19 MOTHER FH: leukemia 19 MOTHER FH: stomach cancer SIBLINGS Hypertension 19 MOTHER SIBLINGS Myocardial infarction 19 MOTHER Pancreatitis 19 FATHER Hypertension Review of Systems Constitutional: No chills, No fever EENTM: No hearing loss, No blurred vision, No double vision, No vision loss Respiratory: No cough, No dyspnea on exertion, No short of breath Cardiovascular: No chest pain, No edema, No palpitations Gastrointestinal: No abdominal pain, No nausea, No vomiting Genitourinary: No dysuria, No hematuria Musculoskeletal: No back pain, No neck pain Skin: No change in color, No change in hair/nails Psychiatric/Neurological: Denies Numbness, Denies Tingling, Denies Weakness Physical Exam Vital Signs Vital Signs - First Documented 09/11/22 09:01 Temp 35.9 Pulse 82 Resp 18 B/P (MAP) 128/66 (86) Pulse Ox 95 Capillary Refill : Less Than 3 Seconds Height, Weight, BMI Height: 5'2.00" Weight: 199lbs. 1.0oz. 90.366715lu; 33.00 BMI Method:Stated General Appearance: No Apparent Distress, WD/WN HEENT: PERRL/EOMI, Pharynx Normal Neck: Non Tender, Supple Respiratory: Chest Non Tender, Lungs Clear, Normal Breath Sounds, No Accessory Muscle Use, No Respiratory Distress Cardiovascular: Regular Rate, Rhythm, No Edema, Normal Peripheral Pulses Gastrointestinal: Non Tender, Soft Rectal: Other (Bright red blood per rectum, currently no bleeding) Back: No Vertebral Tenderness Extremity: Normal Capillary Refill, Non Tender, No Calf Tenderness, No Pedal Edema Neurologic/Psychiatric: Alert, Oriented x3 Skin: Normal Color, Warm/Dry Lymphatic: No Adenopathy Assessment/Plan Assessment and Plan GI bleed Patient reports bleeding stopped around 11:00 today Surgery consulted Currently on clears Monitor BP, currently stable Monitor Hg, transfuse as needed, currently 10.3 which is near this patient's baseline Holding plavix 75mg PO daily CAD with stents Last stent placed 2018 Currently holding plavix CKD stage 4 Monitor BUN/Cr, elevated at baseline Compensated systolic HF Last echo 03/01/19: EF 30-35% Monitor I's and O's DM, mjl-asehssi-klmbztyko SSI Last glucose 149 HTN Currently holding Losartan 100mg PO daily and carvedilol 12.5mg PO BID Monitor BP, currently stable HLD Home dose of pravastatin 10mg PO daily Home dose of ezetimibe/rosuvastatin 10mg & 10mg PO daily Admission Diagnosis Admission Status: BELKYS Aguila MD 09/11/222116: Allergies and Home Medications Allergies Coded Allergies: Sulfa (Sulfonamide Antibiotics) (Verified Allergy, Unknown, 09/01/05) Patient Home Medication List Aspirin (Aspirin EC) 81 Mg Tablet.dr, 81 MG PO HS, (Reported) Entered as Reported by: PHILL LATHAM on 08/23/19 1127 Last Action: Reviewed Carvedilol (Carvedilol) 12.5 Mg Tablet, 12.5 MG PO BID, (Reported) Entered as Reported by: NIK MORILLO on 09/23/16 1031 Last Action: Reviewed Clopidogrel Bisulfate (Clopidogrel) 75 Mg Tablet, 75 MG PO DAILY, (Reported) Entered as Reported by: NIK MORLILO on 02/04/16 1408 Last Action: Reviewed Empagliflozin/Metformin HCl (Synjardy Xr 10-1,000 mg Tablet) 10 Mg-1,000 Mg Tab.bp.24h, 1 EACH PO DAILY, (Reported) Entered as Reported by: AMEENA SONI on 09/11/22 1137 Last Action: Reviewed Furosemide (Furosemide) 40 Mg Tablet, 40 MG PO DAILY, (Reported) Entered as Reported by: FLOR LAU on 09/11/221616 Last Action: Reviewed Losartan Potassium (Losartan Potassium) 100 Mg Tablet, 100 MG PO DAILY, (Reported) Entered as Reported by: NIK MORILLO on 09/23/16 1002 Last Action: Reviewed Magnesium Oxide (Magnesium) 400 Mg Magnesium Tablet, 400 MG PO DAILY, (Reported) Entered as Reported by: FLOR LAU on 09/11/221616 Last Action: Reviewed Multivitamin (Multivitamin) 1 Each Tablet, 1 EACH PO DAILY, (Reported) Entered as Reported by: FLOR LAU on 09/11/221616 Last Action: Reviewed Omeprazole (Omeprazole) 20 Mg Capsule.dr, 20 MG PO DAILY, (Reported) Entered as Reported by: NIK MORILLO on 09/23/16 1019 Last Action: Reviewed Potassium Chloride (Potassium Chloride) 10 Meq Capsule.er, 10 MEQ PO BID, (Reported) Entered as Reported by: SOCORRO BARRIOS on 09/27/19835 Last Action: Reviewed Rosuvastatin Calcium (Rosuvastatin Calcium) 10 Mg Tablet, 10 MG PO HS, (Repor queta) Entered as Reported by: FLOR LAU on 09/11/221616 Last Action: Reviewed Vit C/E/Zn/Coppr/Lutein/Zeaxan (Preservision Areds 2 Softgel) 250MG-90MG Capsule, 1 EACH PO BID, (Reported) Entered as Reported by: FLOR LAU on 09/11/221616 Last Action: Reviewed Discontinued Medications Acetaminophen (Acetaminophen) 500 Mg Tablet, 1,000 MG PO Q6H PRN for PAIN-MILD, (Reported) Discontinued Reason: No Longer Taking Entered as Reported by: FLOR LAU on 02/28/19 1400 Last Action: Discontinued Ezetimibe/Rosuvastatin Calcium (Rosuvastatin-Ezetimibe 10-10Mg) 10 Mg-10 Mg Tablet, 1 EACH PO, (Reported) Discontinued Reason: No Longer Taking Entered as Reported by: AMEENA SONI on 09/11/22 1137 Last Action: Discontinued Furosemide (Furosemide) 80 Mg Tablet, 80 MG PO DAILY, (Reported) Discontinued Reason: No Longer Taking Entered as Reported by: SOCORRO BARRIOS on 09/27/19 0832 Last Action: Discontinued Magnesium Oxide (Magnesium) 400 Mg Tablet, 400 MG PO DAILY, (Reported) Discontinued Reason: No Longer Taking Entered as Reported by: SOCORRO BARRIOS on 09/27/19 0836 Last Action: Discontinued Multivitamin (Once Daily) 1 Each Tablet, 1 TAB PO DAILY, (Reported) Discontinued Reason: No Longer Taking Entered as Reported by: FLOR LAU on 02/28/19 1400 Last Action: Discontinued [place] 3 Polyunsat Fatty Acids (Fish Oil 1,000 mg Capsule) 1,000 Mg Cap, 1,000 MG PO DAILY, (Reported) Discontinued Reason: No Longer Taking Entered as Reported by: TAZ LONGO on 10/13/15 1655 Last Action: Discontinued Pravastatin Sodium (Pravastatin Sodium) 10 Mg Tablet, 10 MG PO HS, (Reported) Discontinued Reason: No Longer Taking Entered as Reported by: FLOR LAU on 02/28/19 1400 Last Action: Discontinued Sennosides/Docusate Sodium (Senna S Tablet) 1 Each Tablet, 2 TAB PO HS, (Reported) Discontinued Reason: No Longer Taking Entered as Reported by: FLOR LAU on 02/28/19 1400 Last Action: Discontinued Sitagliptin Phosphate (Januvia) 100 Mg Tablet, 50 MG PO DAILY, (Reported) Discontinued Reason: No Longer Taking Entered as Reported by: NIK MORILLO on 02/04/16 1408 Last Action: Discontinued Vit A/Vit C/Vit E/Zinc/Copper (Preservision Areds Tablet) 1 Each Tablet, 1 TAB PO BID, (Reported) Discontinued Reason: No Longer Taking Entered as Reported by: PHILL LATHAM on 08/23/19 1127 Last Action: Discontinued Past Cljdhon-Wxnxjf-Umyvgj Hx Family Medical History Cardiovascular disease SIBLINGS Diabetes mellitus 19 MOTHER FH: leukemia 19 MOTHER FH: stomach cancer SIBLINGS Hypertension 19 MOTHER SIBLINGS Myocardial infarction 19 MOTHER Pancreatitis 19 FATHER Assessment/Plan Assessment and Plan Patient admitted with an acute lower GI bleed. She is on plavix so will admit to the hospital and monitor at least two nights to ensure resolution given high risk of recurrence on anticoagulation. Her blood pressure is well contrllled nad she is normally on multiple antihypertensives so will not restart anything in case it is due to blood loss. Surgery has been consulted, appreciate their assistance. She will likely need a colonoscopy one off Plavix for 5 days. Admission Diagnosis Admission Status: Inpatient Order (span 2 midnights) Reason for Inpatient Admission: see above Supervisory-Addendum Brief Verification & Attestation Participated in pt care: history, MDM, physical Personally performed: exam, history, MDM, supervision of care Care discussed with: Medical Student Procedures: n/a Results interpretation: Verified all documentation Verification and Attestation of Medical Student E/M Service A medical student performed and documented this service in my presence. I reviewed and verified all information documented by the medical student and made modifications to such information, when appropriate. I personally performed the physical exam and medical decision making. Belkys Mills, Sep 11, 2022,21:17 ANDREI JACOBO Sep 11, 2022 13:55 BELKYS MILLS MD Sep 11, 2022 21:17
[2022-09-11 14:07] LABS: HEMATOCRIT 28 % (35-52); HEMOGLOBIN 9.7 g/dL (11.5-16.0); MEAN CORPUSCULAR HEMOGLOBIN 28 pg (25-34); MEAN CORPUSCULAR HGB CONC 34 g/dL (32-36); MEAN CORPUSCULAR VOLUME 82 fL (80-99); MEAN PLATELET VOLUME 10.2 fL (9.0-12.2); PLATELET COUNT 188 10^3/uL (130-400); WHITE BLOOD COUNT 9.4 10^3/uL (4.3-11.0)
[2022-09-11] MEDS: NS IV 1000 ML 1,000 ML IV SCH ×2 (15:01→21:28)
--- NOTE | 2022-09-11 15:01 | Physical Therapy Evaluation ---
PT Evaluation-General Medical Diagnosis Admission Date Sep 11, 2022 at 13:42 Medical Diagnosis: rectal bleeding Onset Date: Sep 11, 2022 Therapy Diagnosis Therapy Diagnosis: debility Height/Weight Height (Feet): 5 Height (Inches): 2.00 Weight (Pounds): 199 Weight (Ounces): 1.0 Precautions Precautions/Isolations: Fall Prevention, Standard Precautions Referral Physician: Emiliano Reason for Referral: Evaluation/Treatment Medical History Pertinent Medical History: CAD, DM, GERD, HTN Current History ER secondary to rectal bleed Reviewed History: Yes Social History Home: Single Level Current Living Status: Alone Entry Into Home: Ramp Prior Prior Level of Function SCALE: Activities may be completed with or without assistive devices. 1-Huijnqovmj-rcworqy completes the activity by him/herself with no assistance from a helper. 5-Set-up or Clean-up Assistance-helper sets up or cleans up; patient completes activity. Everett assists only prior to or following the activity. 4-Supervision or Touching Assistance-helper provides verbal cues and/or touching/steadying and/or contact guard assistance as patient completes activity. Assistance may be provided throughout the activity or intermittently. 3-Partial/Moderate Assistance-helper does LESS THAN HALF the effort. Everett lifts, holds or supports trunk or limbs, but provides less than half the effort. 2-Substantial/Maximal Assistance-helper does MORE THAN HALF the effort. Everett lifts or holds trunk or limbs and provides more than half the effort. 0-Rcazzxwfi-ncatpw does ALL the effort. Patient does none of the effort to complete the activity. Or, the assistance of 2 or more helpers is required for the patient to complete the activity. If activity was not attempted, code reason: 7-Patient Refused. 9-Not Applicable-not attempted and the patient did not perform the activity before the current illness, exacerbation or injury. 10-Not Attempted due to Environmental Limitations-(lack of equipment, weather restraints, etc.). 88-Not Attempted due to Medical Conditions or Safety Concerns. Bed Mobility: 6 Transfers (B,C,W/C): 6 Gait: 6 Stairs: 6 Indoor Mobility (Ambulation): Independent Stairs: Independent Prior Devices Use: None PT Evaluation-Current Subjective Patient agrees to PT. Pain Numeric Pain Scale: 0-No Pain Location: No Pain Reported Objective Patient Orientation: Normal For Age ROM/Strength ROM Lower Extremities bilateral LE WFL Strength Lower Extremities 4/5 grossly bilateral LE all planes Integumentary/Posture Bowel Incontinence: No Bladder Incontinence: No Posture WFL Neuromuscular (Tone, Coordination, Reflexes) grossly intact Sensory Vision: Wears Glasses Hearing: Functional Transfers Lying to Sitting/Side of Bed(Q: 6 Sit to Stand (QC): 6 Chair/Oec-gf-Tzbys Xfer(QC): 6 Gait Mode of Locomotion: Walk Anticipated Mode of Locomotion: Walk Walk 10 feet (QC): 5 Walk 50 ft with 2 Turns(QC): 5 Walk 150 ft (QC): 5 Distance: 250' Gait Assistive Device: FWW Comments/Gait Description safe and functional with no deviation Balance Sitting Static: Normal Sitting Dynamic: Normal Standing Static: Normal Standing Dynamic: Normal Assessment/Needs Patient will be seen x 2 session by skilled PT to address functional mobility to ensure safe return to home at independent [facility]. Rehab Potential: Fair PT Short Term Goals Short Term Goals Time Frame: Sep 12, 2022 Roll Left & Right: 6 Sit to lyin Lying to sitting on side of be: 6 Sit to stand: 6 Chair/bjg-wj-khzip transfer: 6 Toilet transfer: 6 Walk 10 feet: 6 Walk 50 feet with two turns: 6 Walk 150 feet: 6 PT Plan Treatment/Plan Treatment Plan: Continue Plan of Care Treatment Plan: Education, Functional Activity Migdalia, Gait, Safety, Therapeutic Exercise Treatment Duration: Sep 12, 2022 Frequency: 2 times per week Estimated Hrs Per Day: .25 hour per day Patient and/or Family Agrees t: Yes Time Time In: 1436 Time Out: 1448 DATE: Sep 11, 2022 Total Billed Treatment Time: 12 Total Billed Treatment 1 visit [facility] 12 min CASSIDY [place] PT Sep 11, 2022 15:01
--- NOTE | 2022-09-11 15:52 | Consultation - Surgery ---
PATRIZIA EDDY 09/11/22 1552: History of Present Illness History of Present Illness Patient Consulted On(travis/time) 09/11/22 15:45 Date Seen by Provider: Sep 11, 2022 Time Seen by Provider: 15:45 History of Present Illness Ling Jones is a 77yo female presenting with an acute lower GI bleed. Pt started having bright red bloody bowel movements w/o associated pain around 8am this morning and lasted till noon. Occurred about 4 times during this time period, and estimates about a pint and a half of blood loss. Pt states she had a previous episode in 2005 where she was found to have a diverticular bleed; per medicine, pt reported this episode being similar to before. Pt denies abdominal pain, N/V and light headedness. Pt states she feels good and has has no other complaints. Allergies and Home Medications Allergies Coded Allergies: Sulfa (Sulfonamide Antibiotics) (Verified Allergy, Unknown, 09/01/05) Patient Home Medication List Aspirin (Aspirin EC) 81 Mg Tablet.dr, 81 MG PO HS, (Reported) Entered as Reported by: PHILL LATHAM on 08/23/19 1127 Last Action: Reviewed Carvedilol (Carvedilol) 12.5 Mg Tablet, 12.5 MG PO BID, (Reported) Entered as Reported by: NIK MORILLO on 09/23/16 1031 Last Action: Reviewed Clopidogrel Bisulfate (Clopidogrel) 75 Mg Tablet, 75 MG PO DAILY, (Reported) Entered as Reported by: NIK MORILLO on 02/04/16 1408 Last Action: Reviewed Empagliflozin/Metformin HCl (Synjardy Xr 10-1,000 mg Tablet) 10 Mg-1,000 Mg Tab.bp.24h, 1 EACH PO DAILY, (Reported) Entered as Reported by: AMEENA SONI on 09/11/22 1137 Last Action: Reviewed Furosemide (Furosemide) 40 Mg Tablet, 40 MG PO DAILY, (Reported) Entered as Reported by: FLOR LAU on 09/11/22 1617 Last Action: Reviewed Losartan Potassium (Losartan Potassium) 100 Mg Tablet, 100 MG PO DAILY, (Reported) Entered as Reported by: NIK MORILLO on 09/23/16 1002 Last Action: Reviewed Magnesium Oxide (Magnesium) 400 Mg Magnesium Tablet, 400 MG PO DAILY, (Reported) Entered as Reported by: FLOR LAU on 09/11/221616 Last Action: Reviewed Multivitamin (Multivitamin) 1 Each Tablet, 1 EACH PO DAILY, (Reported) Entered as Reported by: FLOR LAU on 09/11/221616 Last Action: Reviewed Omeprazole (Omeprazole) 20 Mg Capsule.dr, 20 MG PO DAILY, (Reported) Entered as Reported by: NIK MORILLO on 09/23/16 1019 Last Action: Reviewed Potassium Chloride (Potassium Chloride) 10 Meq Capsule.er, 10 MEQ PO BID, (Repo rted) Entered as Reported by: SOCORRO BARRIOS on 09/27/19835 Last Action: Reviewed Rosuvastatin Calcium (Rosuvastatin Calcium) 10 Mg Tablet, 10 MG PO HS, (Reported) Entered as Reported by: FLOR LAU on 09/11/221616 Last Action: Reviewed Vit C/E/Zn/Coppr/Lutein/Zeaxan (Preservision Areds 2 Softgel) 250MG-90MG Caps ule, 1 EACH PO BID, (Reported) Entered as Reported by: FLOR LAU on 09/11/221616 Last Action: Reviewed Discontinued Medications Acetaminophen (Acetaminophen) 500 Mg Tablet, 1,000 MG PO Q6H PRN for PAIN-MILD, (Reported) Discontinued Reason: No Longer Taking Entered as Reported by: FLOR LAU on 02/28/19 1400 Last Action: Discontinued Ezetimibe/Rosuvastatin Calcium (Rosuvastatin-Ezetimibe 10-10Mg) 10 Mg-10 Mg Tablet, 1 EACH PO, (Reported) Discontinued Reason: No Longer Taking Entered as Reported by: AMEENA SONI on 09/11/22 1137 Last Action: Discontinued Furosemide (Furosemide) 80 Mg Tablet, 80 MG PO DAILY, (Reported) Discontinued Reason: No Longer Taking Entered as Reported by: SOCORRO BARRIOS on 09/27/19 0832 Last Action: Discontinued Magnesium Oxide (Magnesium) 400 Mg Tablet, 400 MG PO DAILY, (Reported) Discontinued Reason: No Longer Taking Entered as Reported by: SOCORRO BARRIOS on 09/27/19835 Last Action: Discontinued Multivitamin (Once Daily) 1 Each Tablet, 1 TAB PO DAILY, (Reported) Discontinued Reason: No Longer Taking Entered as Reported by: FLOR LAU on 02/28/19 1400 Last Action: Discontinued [place] 3 Polyunsat Fatty Acids (Fish Oil 1,000 mg Capsule) 1,000 Mg Cap, 1,000 MG PO DAILY, (Reported) Discontinued Reason: No Longer Taking Entered as Reported by: TAZ LONGO on 10/13/15 1655 Last Action: Discontinued Pravastatin Sodium (Pravastatin Sodium) 10 Mg Tablet, 10 MG PO HS, (Reported) Discontinued Reason: No Longer Taking Entered as Reported by: FLOR LAU on 02/28/19 1400 Last Action: Discontinued Sennosides/Docusate Sodium (Senna S Tablet) 1 Each Tablet, 2 TAB PO HS, (Reported) Discontinued Reason: No Longer Taking Entered as Reported by: FLOR LAU on 02/28/19 1400 Last Action: Discontinued Sitagliptin Phosphate (Januvia) 100 Mg Tablet, 50 MG PO DAILY, (Reported) Discontinued Reason: No Longer Taking Entered as Reported by: NIK MORILLO on 02/04/16 1408 Last Action: Discontinued Vit A/Vit C/Vit E/Zinc/Copper (Preservision Areds Tablet) 1 Each Tablet, 1 TAB PO BID, (Reported) Discontinued Reason: No Longer Taking Entered as Reported by: PHILL LATHAM on 08/23/19 1127 Last Action: Discontinued Past Jdrhxce-Ymmooo-Jjoevh Hx Patient Social History 2nd Hand Smoke Exposure: No Recent Hopitalizations: Yes (CVA 02/02/16) Alcohol Use?: No Have you traveled recently?: No Immunizations Up To Date Tetanus Booster (TDap): Less than 5yrs Date of Pneumonia Vaccine: Jun 12, 2017 Date of Influenza Vaccine: May 20, 2019 Seasonal Allergies Seasonal Allergies: No Surgeries History of Surgeries: Yes Surgeries: Coronary Stent, Gallbladder, Hysterectomy Respiratory History of Respiratory Disorde: No Cardiovascular History of Cardiac Disorders: Yes Cardiac Disorders: Cardiomyopathy, Coronary Artery Disease, High Cholesterol, Hypertension, Valvular Heart Disease Neurological History of Neurological Disord: Yes Neurological Disorders: Stroke, TIA Reproductive System Hx Reproductive Disorders: No Female Reproductive Disorders: Denies 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, 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 Genitourinary History of Genitourinary Disor: No Gastrointestinal History of Gastrointestinal Di: Yes Gastrointestinal Disorders: Gastroesophageal Reflux, Diverticulosis Musculoskeletal History of Musculoskeletal Dis: Yes Musculoskeletal Disorders: Arthritis Endocrine History of Endocrine Disorders: Yes Endocrine Disorders: Diabetes, Non-Insulin dep HEENT History of HEENT Disorders: No Cancer History of Cancer: No Psychosocial History of Psychiatric Problem: No Integumentary History of Skin or Integumenta: No Blood Transfusions History of Blood Disorders: Yes (Anemia- GI bleed associated) Adverse Reaction to a Blood Tr: No Family Medical History Significant Family History: Hypertension Family Medial History: Cardiovascular disease SIBLINGS Diabetes mellitus 19 MOTHER FH: leukemia 19 MOTHER FH: stomach cancer SIBLINGS Hypertension 19 MOTHER SIBLINGS Myocardial infarction 19 MOTHER Pancreatitis 19 FATHER Review of Systems-General Constitutional: No chills, No dizziness, No fever Gastrointestinal: No abdominal pain, No nausea, No vomiting Physical Exam-General Problems Physical Exam Vital Signs Vital Signs - First Documented 09/11/22 09:01 Temp 35.9 Pulse 82 Resp 18 B/P (MAP) 128/66 (86) Pulse Ox 95 Capillary Refill : Less Than 3 Seconds General Appearance: no apparent distress HEENT: PERRL/EOMI Neck: non-tender, supple, normal inspection Respiratory: no respiratory distress, no accessory muscle use Cardiovascular: no edema, no JVD Peripheral Pulses: 2+ Radial Pulses (R), 2+ Radial Pulses (L) Gastrointestinal: non tender, soft Neurologic/Psychiatric: alert, normal mood/affect, oriented x 3 Skin: normal color, warm/dry Lymphatic: no adenopathy Data Review Labs Laboratory Tests 09/11/22 09:11: White Blood Count 7.9, Red Blood Count 3.65L, Hemoglobin 10.3L, Hematocrit 30L, Mean Corpuscular Volume 82, Mean Corpuscular Hemoglobin 28, Mean Corpuscular Hem oglobin Concent 34, Red Cell Distribution Width 14.4, Platelet Count 258, Mean Platelet Volume 11.1, Immature Granulocyte % (Auto) 0, Neutrophils (%) (Auto) 64, Lymphocytes (%) (Auto) 26, Monocytes (%) (Auto) 7, Eosinophils (%) (Auto) 2, Basophils (%) (Auto) 1, Neutrophils # (Auto) 5.1, Lymphocytes # (Auto) 2.0, Monocytes # (Auto) 0.6, Eosinophils # (Auto) 0.2, Basophils # (Auto) 0.1, Immature Granulocyte # (Auto) 0.0, Prothrombin Time 15.3H, INR Comment 1.2, Activated Partial Thromboplast Time 33, Sodium Level 139, Potassium Level 4.8, Chloride Level 108H, Carbon Dioxide Level 19L, Anion Gap 12, Blood Urea Nitrogen 57H, Creatinine 2.43H, Estimat Glomerular Filtration Rate 20, BUN/Creatinine Ratio 23, Glucose Level 149H, Calcium Level 9.2, Corrected Calcium 9.4, Magnesium Level 2.0, Total Bilirubin 0.7, Aspartate Amino Transf (AST/SGOT) 21, Alanine Aminotransferase (ALT/SGPT) 10, Alkaline Phosphatase 143H, Total Protein 7.1, Albumin 3.8 09/11/22 13:55: White Blood Count 9.4, Red Blood Count 3.43L, Hemoglobin 9.7L, Hematocrit 28L, Mean Corpuscular Volume 82, Mean Corpuscular Hemoglobin 28, Mean Corpuscular Hemoglobin Concent 34, Red Cell Distribution Width 14.5, Platelet Count 188, Mean Platelet Volume 10.2 Assessment/Plan Assessment/Plan Assessment/Plan GI bleed CAD with stents CKD stage 4 Compensated systolic HF DM, [id number]-headowbtp HTN HLD Clear Liquid Diet Monitor H&H; Hgb was 10.3 during admission and decreased to 9.7 Plavix and aspirin Held Pt seems to be doing well. We will continue to monitor her hgb and transfuse as needed. If patient's hbg is stable tomorrow and doesn't have anymore bloody bowel movements, pt will be able to be discharged from a surgery standpoint. Will schedule patient for outpatient appointment w/ Dr. Lama for future endoscopy. OMAR LAMA DO 09/11/22 0100: History of Present Illness History of Present Illness History of Present Illness Patient is a 77 year old female who began having bright red blood per rectum this morning. Woke up to needing to go the bathroom and it began and had a total of 4 bloody bowel movements. Patient with no abdominal pain. Used life alert and ems brought to ED. She has had no further bowel movements since being admitted. She is on Plavix. Feeling better. Tolerating clears. Denies n/v fever sweats chills shortness of breath or chest pain. Allergies and Home Medications Allergies Coded Allergies: Sulfa (Sulfonamide Antibiotics) (Verified Allergy, Unknown, 09/01/05) Patient Home Medication List Home Medication List Reviewed: Yes Aspirin (Aspirin EC) 81 Mg Tablet.dr, 81 MG PO HS, (Reported) Entered as Reported by: PHILL LATHAM on 08/23/19 1127 Last Action: Reviewed Carvedilol (Carvedilol) 12.5 Mg Tablet, 12.5 MG PO BID, (Reported) Entered as Reported by: NIK MORILLO on 09/23/16 1031 Last Action: Reviewed Clopidogrel Bisulfate (Clopidogrel) 75 Mg Tablet, 75 MG PO DAILY, (Reported) Entered as Reported by: NIK MORILLO on 02/04/16 1408 Last Action: Reviewed Empagliflozin/Metformin HCl (Synjardy Xr 10-1,000 mg Tablet) 10 Mg-1,000 Mg Tab.bp.24h, 1 EACH PO DAILY, (Reported) Entered as Reported by: AMEENA SONI on 09/11/22 113 Last Action: Reviewed Furosemide (Furosemide) 40 Mg Tablet, 40 MG PO DAILY, (Reported) Entered as Reported by: FLOR LAU on 09/11/221616 Last Action: Reviewed Losartan Potassium (Losartan Potassium) 100 Mg Tablet, 100 MG PO DAILY, (Reported) Entered as Reported by: NIK MORILLO on 09/23/16 1002 Last Action: Reviewed Magnesium Oxide (Magnesium) 400 Mg Magnesium Tablet, 400 MG PO DAILY, (Reported) Entered as Reported by: FLOR LAU on 09/11/221616 Last Action: Reviewed Multivitamin (Multivitamin) 1 Each Tablet, 1 EACH PO DAILY, (Reported) Entered as Reported by: FLOR LAU on 09/11/221616 Last Action: Reviewed Omeprazole (Omeprazole) 20 Mg Capsule.dr, 20 MG PO DAILY, (Reported) Entered as Reported by: NIK MORILLO on 09/23/16 1019 Last Action: Reviewed Potassium Chloride (Potassium Chloride) 10 Meq Capsule.er, 10 MEQ PO BID, (Reported) Entered as Reported by: SOCORRO BARRIOS on 09/27/19 0836 Last Action: Reviewed Rosuvastatin Calcium (Rosuvastatin Calcium) 10 Mg Tablet, 10 MG PO HS, (Reported) Entered as Reported by: FLOR LAU on 09/11/221616 Last Action: Reviewed Vit C/E/Zn/Coppr/Lutein/Zeaxan (Preservision Areds 2 Softgel) 250MG-90MG Capsule, 1 EACH PO BID, (Reported) Entered as Reported by: FLOR LAU on 09/11/221616 Last Action: Reviewed Discontinued Medications Acetaminophen (Acetaminophen) 500 Mg Tablet, 1,000 MG PO Q6H PRN for PAIN-MILD, (Reported) Discontinued Reason: No Longer Taking Entered as Reported by: FLOR LAU on 02/28/191399 Last Action: Discontinued Ezetimibe/Rosuvastatin Calcium (Rosuvastatin-Ezetimibe 10-10Mg) 10 Mg-10 Mg Tablet, 1 EACH PO, (Reported) Discontinued Reason: No Longer Taking Entered as Reported by: AMEENA SONI on 09/11/22 1137 Last Action: Discontinued Furosemide (Furosemide) 80 Mg Tablet, 80 MG PO DAILY, (Reported) Discontinued Reason: No Longer Taking Entered as Reported by: SOCORRO BARRIOS on 09/27/19 0832 Last Action: Discontinued Magnesium Oxide (Magnesium) 400 Mg Tablet, 400 MG PO DAILY, (Reported) Discontinued Reason: No Longer Taking Entered as Reported by: SOCORRO BARRIOS on 09/27/19 0836 Last Action: Discontinued Multivitamin (Once Daily) 1 Each Tablet, 1 TAB PO DAILY, (Reported) Discontinued Reason: No Longer Taking Entered as Reported by: FLOR LAU on 02/28/191399 Last Action: Discontinued [place] 3 Polyunsat Fatty Acids (Fish Oil 1,000 mg Capsule) 1,000 Mg Cap, 1,000 MG PO DAILY, (Reported) Discontinued Reason: No Longer Taking Entered as Reported by: TAZ LONGO on 10/13/15 1655 Last Action: Discontinued Pravastatin Sodium (Pravastatin Sodium) 10 Mg Tablet, 10 MG PO HS, (Reported) Discontinued Reason: No Longer Taking Entered as Reported by: FLOR LAU on 02/28/191399 Last Action: Discontinued Sennosides/Docusate Sodium (Senna S Tablet) 1 Each Tablet, 2 TAB PO HS, (Reported) Discontinued Reason: No Longer Taking Entered as Reported by: FLOR LAU on 02/28/191399 Last Action: Discontinued Sitagliptin Phosphate (Januvia) 100 Mg Tablet, 50 MG PO DAILY, (Reported) Discontinued Reason: No Longer Taking Entered as Reported by: NIK MROILLO on 02/04/16 1408 Last Action: Discontinued Vit A/Vit C/Vit E/Zinc/Copper (Preservision Areds Tablet) 1 Each Tablet, 1 TAB PO BID, (Reported) Discontinued Reason: No Longer Taking Entered as Reported by: PHILL LATHAM on 08/23/19 112 Last Action: Discontinued Past Xtngdcb-Rbkrdy-Xogrtx Hx Reviewed Nursing Assessment Reviewed/Agree w Nursing PMH: Yes Family Medical History Significant Family History: No Pertinent Family Hx Family Medial History: Cardiovascular disease SIBLINGS Diabetes mellitus 19 MOTHER FH: leukemia 19 MOTHER FH: stomach cancer SIB[place]INGS Hypertension 19 MOTHER SIBLINGS Myocardial infarction 19 MOTHER Pancreatitis 19 FATHER Review of Systems-General Constitutional: No chills, No fever EENTM: No blurred vision, No double vision Respiratory: No cough, No dyspnea on exertion Cardiovascular: No chest pain Gastrointestinal: No abdominal pain; melena; No nausea, No vomiting Genitourinary: No decreased output, No discharge Musculoskeletal: No back pain, No gout, No joint pain Skin: No change in color, No change in hair/nails Psychiatric/Neurological: Denies Anxiety, Denies Depressed, Denies Emotional Problems All Other Systems Reviewed Negative Unless Noted: Yes (Negative excepted noted.) Physical Exam-General Problems Physical Exam General Appearance: WD/WN, no apparent distress HEENT: PERRL/EOMI, normal ENT inspection Neck: non-tender, supple Respiratory: chest non-tender, no respiratory distress, no accessory muscle use Cardiovascular: regular rate, rhythm, no JVD Gastrointestinal: non tender, soft, no organomegaly Rectal: deferred Back: no CVA tenderness, no vertebral tenderness Extremities: normal range of motion, normal inspection Neurologic/Psychiatric: alert, normal mood/affect, oriented x 3 Skin: warm/dry, pallor Lymphatic: no adenopathy Assessment/Plan Assessment/Plan Assessment/Plan GI bleed CAD with stents 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 Clear Liquid Diet Monitor H&H; Hgb was 10.3 during admission and decreased to 9.7 Plavix and aspirin Held Pt seems to be doing well. We will continue to monitor her hgb and transfuse as needed. If patient's hbg is stable tomorrow and doesn't have anymore bloody bowel movements then advance diet plan colonoscopy inpatient vs outpatient Supervisory-Addendum Brief Verification & Attestation Participated in pt care: history, MDM, physical Personally performed: exam, history, MDM, supervision of care Care discussed with: Medical Student Procedures: n/a Results interpretation: Verified all documentation Verification and Attestation of Medical Student E/M Service A medical student performed and documented this service in my presence. I reviewed and verified all information documented by the medical student and made modifications to such information, when appropriate. I personally performed the physical exam and medical decision making. Omar Lama, Sep 11, 2022,17:32 PATRIZIA EDDY Sep 11, 2022 15:52 OMAR LAMA DO Sep 11, 2022 17:28
[2022-09-11 16:01] VITALS: BP 114/56
[2022-09-11] MEDS ORDERED: VIT1CAPS44 PO (16:17)
[2022-09-11] MEDS ORDERED: ROSU10TA28 PO (16:17)
[2022-09-11] MEDS ORDERED: FURO40TA4 PO (16:17)
[2022-09-11] MEDS ORDERED: MULT-1136 PO (16:17)
[2022-09-11] MEDS ORDERED: MAGN400T39 PO (16:17)
[2022-09-11 20:13] VITALS: BP 126/60
[2022-09-11 23:00] VITALS: BP 151/61
[2022-09-12 04:59] VITALS: BP 129/56
[2022-09-12] MEDS: NS IV 1000 ML 1,000 ML IV SCH (05:38)
[2022-09-12 05:52] LABS: HEMATOCRIT 25 % (35-52); HEMOGLOBIN 8.2 g/dL (11.5-16.0); MEAN CORPUSCULAR HEMOGLOBIN 28 pg (25-34); MEAN CORPUSCULAR HGB CONC 33 g/dL (32-36); MEAN CORPUSCULAR VOLUME 84 fL (80-99); MEAN PLATELET VOLUME 10.3 fL (9.0-12.2); PLATELET COUNT 167 10^3/uL (130-400); WHITE BLOOD COUNT 6.5 10^3/uL (4.3-11.0)
[2022-09-12 06:06] LABS: CALCIUM 8.5 MG/DL (8.5-10.1); CREATININE SERUM 1.91 MG/DL (0.60-1.30); POTASSIUM 3.9 MMOL/L (3.6-5.0)
[2022-09-12] MEDS: inSUlin ASPART (NovoLOG) 1 UNIT/0.01 ML (CHARGE PER UNIT) SC SCH ×4 (06:24→20:27)
[2022-09-12 07:15] VITALS: BP 114/56
--- NOTE | 2022-09-12 08:45 | Progress Note - Surgery ---
PARTIZIA EDDY 09/12/22 0845: Subjective Date Seen by a Provider: Sep 12, 2022 Time Seen by a Provider: 08:37 Subjective/Events-last exam Pt was laying in bed comfortable when seen. Pt states that she is doing well w/o any pain. Pt had BM yesterday evening w/ minimal blood. Pt states that she has been ambulating well in the halls. Pt doesn't have any complaints. Review of Systems General: No Chills, No Fatigue HEENT: No Head Aches, No Visual Changes Pulmonary: No Dyspnea, No Cough Cardiovascular: No: Chest Pain, Palpitations Gastrointestinal: Other (Minimal blood per rectum); No: Nausea, Vomiting, Abdominal Pain Genitourinary: No Dysuria, No Frequency Musculoskeletal: No: neck pain, back pain Neurological: No: Weakness, Numbness Objective Exam Vital Signs Date Time Temp Pulse Resp B/P (MAP) Pulse Ox O2 Delivery O2 Flow Rate FiO2 09/12/22 07:15 36.3 89 18 114/56 (75) 96 Room Air 09/12/22 07:08 88 09/12/22 04:59 36.3 86 18 129/56 (80) 94 Room Air 09/12/22 01:00 80 09/11/22 23:00 36.2 65 18 151/61 (91) 97 Room Air 09/11/22 20:59 Room Air 09/11/22 20:13 36.1 62 16 126/60 (82) 97 Room Air 09/11/22 19:00 71 09/11/22 16:01 36.4 67 16 114/56 (75) 97 Room Air 09/11/22 15:44 65 09/11/22 12:56 62 18 133/63 95 09/11/22 09:01 35.9 82 18 128/66 (86) 95 I & O 09/12/22 07:00 Intake Total 3590 ml Output Total 600 ml Balance 2990 ml Capillary Refill : Less Than 3 Seconds General Appearance: No Apparent Distress, WD/WN HEENT: PERRL/EOMI, Pharynx Normal Neck: Non Tender, Supple Respiratory: Chest Non Tender, Lungs Clear, Normal Breath Sounds, No Accessory Muscle Use, No Respiratory Distress Cardiovascular: Regular Rate, Rhythm, No Edema, Normal Peripheral Pulses Peripheral Pulses: 2+ Radial Pulses (R), 2+ Radial Pulses (L) Gastrointestinal: non tender, soft, no organomegaly Extremity: Normal Capillary Refill, Non Tender, No Calf Tenderness, No Pedal Edema Neurologic/Psychiatric: Alert, Oriented x3 Skin: Normal Color, Warm/Dry Lymphatic: No Adenopathy Results Lab Laboratory Tests 09/11/22 09:11: White Blood Count 7.9, Red Blood Count 3.65L, Hemoglobin 10.3L, Hematocrit 30L, Mean Corpuscular Volume 82, Mean Corpuscular Hemoglobin 28, Mean Corpuscular Hemoglobin Concent 34, Red Cell Distribution Width 14.4, Platelet Count 258, Mean Platelet Volume 11.1, Immature Granulocyte % (Auto) 0, Neutrophils (%) (Auto) 64, Lymphocytes (%) (Auto) 26, Monocytes (%) (Auto) 7, Eosinophils (%) (Auto) 2, Basophils (%) (Auto) 1, Neutrophils # (Auto) 5.1, Lymphocytes # (Auto) 2.0, Monocytes # (Auto) 0.6, Eosinophils # (Auto) 0.2, Basophils # (Auto) 0.1, Immature Granulocyte # (Auto) 0.0, Prothrombin Time 15.3H, INR Comment 1.2, Activated Partial Thromboplast Time 33, Sodium Level 139, Potassium Level 4.8, Chloride Level 108H, Carbon Dioxide Level 19L, Anion Gap 12, Blood Urea Nitrogen 57H, Creatinine 2.43H, Estimat Glomerular Filtration Rate 20, BUN/Creatinine Ratio 23, Glucose Level 149H, Calcium Level 9.2, Corrected Calcium 9.4, Magnesium Level 2.0, Total Bilirubin 0.7, Aspartate Amino Transf (AST/SGOT) 21, Alanine Aminotransferase (ALT/SGPT) 10, Alkaline Phosphatase 143H, Total Protein 7.1, Albumin 3.8 09/11/22 13:55: White Blood Count 9.4, Red Blood Count 3.43L, Hemoglobin 9.7L, Hematocrit 28L, Mean Corpuscular Volume 82, Mean Corpuscular Hemoglobin 28, Mean Corpuscular Hemoglobin Concent 34, Red Cell Distribution Width 14.5, Platelet Count 188, Mean Platelet Volume 10.2 09/11/22 21:27: Glucometer 117H 09/12/22 05:02: White Blood Count 6.5, Red Blood Count 2.95L, Hemoglobin 8.2L, Hematocrit 25L, Mean Corpuscular Volume 84, Mean Corpuscular Hemoglobin 28, Mean Corpuscular Hemoglobin Concent 33, Red Cell Distribution Width 14.4, Platelet Count 167, Mean Platelet Volume 10.3, Sodium Level 140, Potassium Level 3.9, Chloride Level 113H, Carbon Dioxide Level 17L, Anion Gap 10, Blood Urea Nitrogen 51H, Creatinine 1.91H, Estimat Glomerular Filtration Rate 26, BUN/Creatinine Ratio 27, Glucose Level 106H, Calcium Level 8.5 Assessment/Plan Assessment/Plan Assessment/Plan GI bleed CAD with stents oil heaterman antiplatelets current use History of diverticular bleed Clear Liquid Diet Monitor H&H; Hgb was 10.3 during admission and decreased to 9.7 yesterday; Today Hgb is 8.2 Plavix and aspirin Held Planning outpatient colonoscopy; will coordinate with medicine team on deciding discharge v. inpatient status for the weekend ALEX MONTANA DO 09/12/22 0855: Subjective Subjective/Events-last exam Patient had slight drop in hgb. Had minimal pink blood with last bm. Feeling well. Wanting to go home. Denies n/v fever sweats chills shortness of breath or chest pain. Objective Exam General Appearance: No Apparent Distress, WD/WN HEENT: PERRL/EOMI, Normal ENT Inspection Neck: Non Tender, Supple Respiratory: Chest Non Tender, No Accessory Muscle Use, No Respiratory Distress Cardiovascular: Regular Rate, Rhythm, No JVD Gastrointestinal: non tender, soft Extremity: Non Tender, No Calf Tenderness Neurologic/Psychiatric: Alert, Oriented x3 Skin: Normal Color, Warm/Dry Lymphatic: No Adenopathy Assessment/Plan Assessment/Plan Assessment/Plan GI bleed-lower CAD with stents oil heaterman antiplatelets current use History of diverticular bleed Clear Liquid Diet Monitor H&H; Hgb was 10.3 during admission and decreased to 9.7 yesterday; Today Hgb is 8.2 Plavix and aspirin Held Planning inpatient/outpatient colonoscopy; will have setup for Thursday due to the Antiplatelet use Supervisory-Addendum Brief Verification & Attestation Participated in pt care: history, MDM, physical Personally performed: exam, history, MDM, supervision of care Care discussed with: Medical Student Procedures: n/a Results interpretation: Verified all documentation Verification and Attestation of Medical Student E/M Service A medical student performed and documented this service in my presence. I reviewed and verified all information documented by the medical student and made modifications to such information, when appropriate. I personally performed the physical exam and medical decision making. Alex Montana, Sep 12, 2022,08:55 PATRIZIA EDDY Sep 12, 2022 08:45 ALEX MONTANA DO Sep 12, 2022 08:55
[2022-09-12] MEDS ORDERED: NS IV 1000 ML 1,000 ML IV SCH (11:02)
[2022-09-12 11:10] VITALS: BP 123/56
--- NOTE | 2022-09-12 11:16 | Physical Therapy Daily Note ---
PT Daily Note-Current Subjective Patient agrees to PT. Pain Section J - Health Conditions 1. Rarely or not at all 2. Occasionally 3. Frequently 4. Almost constantly 8. Unable to answer Pain Effect on Sleep: 1 Pain Interference with Therapy: 1 Pain Interference w/Day-to-Day: 1 Mental Status Patient Orientation: Normal For Age Attachments: IV Transfers SCALE: Activities may be completed with or without assistive devices. 4-Mevaklvayz-wbvtebw completes the activity by him/herself with no assistance from a helper. 5-Set-up or Clean-up Assistance-helper sets up or cleans up; patient completes activity. [place] assists only prior to or following the activity. 4-Supervision or Touching Assistance-helper provides verbal cues and/or touching/steadying and/or contact guard assistance as patient completes ac tivity. Assistance may be provided throughout the activity or intermittently. 3-Partial/Moderate Assistance-helper does LESS THAN HALF the effort. [place] lifts, holds or supports trunk or limbs, but provides less than half the effort. 2-Substantial/Maximal Assistance-helper does MORE THAN HALF the effort. [place] lifts or holds trunk or limbs and provides more than half the effort. 8-Jiquprdgb-vnwoqa does ALL the effort. Patient does none of the effort to complete the activity. Or, the assistance of 2 or more helpers is required for the patient to complete the activity. If activity was not attempted, code reason: 7-Patient Refused. 9-Not Applicable-not attempted and the patient did not perform the activity before the current illness, exacerbation or injury. 10-Not Attempted due to Environmental Limitations-(lack of equipment, weather restraints, etc.). 88-Not Attempted due to Medical Conditions or Safety Concerns. Sit to Stand (QC): 6 Gait Training Distance: 275' Walk 10 feet (QC): 6 Walk 50 ft with 2 Turns(QC): 6 Walk 150 ft (QC): 6 Gait Assistive Device: FWW safe and functional with 1 seated recovery period due to fatigue/SOA with SAO2 96% RA Assessment Patient states she ambulates short distances only and todays distance was too far. Patient is currently at independent PLOF with all gross motor skills safely and does not require continued skilled PT intervention. PT Short Term Goals Short Term Goals Time Frame: Sep 12, 2022 Roll Left & Right: 6 Sit to lyin Lying to sitting on side of be: 6 Sit to stand: 6 Chair/knb-uq-uqxqz transfer: 6 Toilet transfer: 6 Walk 10 feet: 6 Walk 50 feet with two turns: 6 Walk 150 feet: 6 PT Plan Treatment/Plan Treatment Plan: Discontinue PT, goals met Treatment Plan: Education, Functional Activity [place], Gait, Safety, Therapeutic Exercise Treatment Duration: Sep 12, 2022 Frequency: 2 times per week Estimated Hrs Per Day: .25 hour per day Patient and/or Family Agrees t: Yes Time Time In: 1055 Time Out: 1106 DATE: Sep 12, 2022 Total Billed Treatment Time: 11 Total Billed Treatment 1 visit FA 11 min CASSIDY WINCHESTER PT Sep 12, 2022 11:16
--- NOTE | 2022-09-12 11:40 | Progress Note ---
ANDREI JACOBO 09/12/22 1140: Subjective Date Seen by a Provider: Sep 12, 2022 Time Seen by a Provider: 11:30 Subjective/Events-last exam Patient is awake and alert in her chair this morning. Patient had one BM last night that had some pink tinge, no further BMs today. Hemoglobin decreased from 9.7 to 8.2 today. Patient reports that they are feeling well and have no complaints. Discussed staying one more day to monitor Hg, make sure no further bloody BMs and the patient was agreeable with this plan. Review of Systems General: No Chills, No Night Sweats HEENT: No Eye Pain, No Ear Pain Pulmonary: No Dyspnea, No Cough Cardiovascular: No: Chest Pain, Palpitations, Orthopnea, Lt Headedness Gastrointestinal: No: Nausea, Vomiting, Abdominal Pain Genitourinary: No Dysuria, No Hematuria Musculoskeletal: No: neck pain, back pain Neurological: No: Weakness, Numbness Objective Exam Last Set of Vital Signs Vital Signs Date Time Temp Pulse Resp B/P (MAP) Pulse Ox O2 Delivery O2 Flow Rate FiO2 09/12/22 11:10 35.9 97 20 123/56 (78) 96 Room Air Capillary Refill : Less Than 3 Seconds I&O Intake and Output 09/12/22 00:00 Intake Total 2390 ml Output Total 300 ml Balance 2090 ml Intake Oral 1390 ml IV Total 1000 ml Output Urine Total 300 ml # Voids 3 # Bowel Movements 1 Daily Weight Change No General: Alert, Oriented X3 HEENT: Atraumatic, PERRLA Neck: Supple, No JVD Lungs: Clear to Auscultation Heart: Regular Rate Abdomen: Normal Bowel Sounds, Soft Extremities: No Clubbing, No Cyanosis, No Edema, Normal Pulses Skin: No Rashes, No Significant Lesion Neuro: Normal Speech, Normal Tone Results Lab Laboratory Tests 09/11/22 13:55: White Blood Count 9.4, Red Blood Count 3.43L, Hemoglobin 9.7L, Hematocrit 28L, Mean Corpuscular Volume 82, Mean Corpuscular Hemoglobin 28, Mean Corpuscular Hemoglobin Concent 34, Red Cell Distribution Width 14.5, Platelet Count 188, Mean Platelet Volume 10.2 09/11/22 21:27: Glucometer 117H 09/12/22 05:02: White Blood Count 6.5, Red Blood Count 2.95L, Hemoglobin 8.2L, Hematocrit 25L, Mean Corpuscular Volume 84, Mean Corpuscular Hemoglobin 28, Mean Corpuscular Hemoglobin Concent 33, Red Cell Distribution Width 14.4, Platelet Count 167, Mean Platelet Volume 10.3, Sodium Level 140, Potassium Level 3.9, Chloride Level 113H, Carbon Dioxide Level 17L, Anion Gap 10, Blood Urea Nitrogen 51H, Creatini ne 1.91H, Estimat Glomerular Filtration Rate 26, BUN/Creatinine Ratio 27, Glucose Level 106H, Calcium Level 8.5 09/12/22 11:15: Glucometer 164H Assessment/Plan Assessment/Plan Assess & Plan/Chief Complaint GI bleed 1 pink-tinged BM yesterday, no further episodes Surgery consulted, patient scheduled for endoscopy 09/16 Advancing diet from clears to regular, will wean IV fluids down, DC if tolerating well Monitor BP has remained stable Hg down to 8.2 this morning, will recheck with AM labs, transfuse if needed Holding plavix 75mg PO daily CAD with stents Last stent placed 2018 Currently holding plavix CKD stage 4 BUN and Cr improved from 57 to 51 and 2.43 to 1.91 respectively, elevated at baseline Compensated systolic HF Last echo 03/01/19: EF 30-35% Monitor I's and O's DM, [id number]-wgdixlojy SSI Glucose has been well-controlled HTN Currently holding Losartan 100mg PO daily and carvedilol 12.5mg PO BID BP has remained stable, will continue to monitor HLD Pravastatin 10mg PO daily Ezetimibe/rosuvastatin 10mg & 10mg PO daily Clinical Quality Measures Admission Status Admission Dx GI bleed Patient reports bleeding stopped around 11:00 today Surgery consulted Currently on clears Monitor BP, currently stable Monitor Hg, transfuse as needed, currently 10.3 which is near this patient's baseline Holding plavix 75mg PO daily CAD with stents Last stent placed 2018 Currently holding plavix CKD stage 4 Monitor BUN/Cr, elevated at baseline Compensated systolic HF Last echo 03/01/19: EF 30-35% Monitor I's and O's DM, [id number]-kbyjcpmxz SSI Last glucose 149 HTN Currently holding Losartan 100mg PO daily and carvedilol 12.5mg PO BID Monitor BP, currently stable HLD Home dose of pravastatin 10mg PO daily Home dose of ezetimibe/rosuvastatin 10mg & 10mg PO daily BELKYS CUMMINGS MD 09/12/22 1232: Assessment/Plan Assessment/Plan Assess & Plan/Chief Complaint Patient reports doing very well. She had some pink tinged stools yesterday and Hgb down some today. Discussed my preference that she stay in the hospital for one more night of monitoring and she is agreeable. Will advance diet. If hemoglobin stable tomorrow will DC early in the AM but given her anticoagulation status it would be safest to monitor overnight again. Spoke with Dr Montana and he is planning colonoscpy next week. Discussed risks of being off Plavix with patient and she is worried about it but understands the risks/benefits at the moment and is agreeable. Supervisory-Addendum Brief Verification & Attestation Participated in pt care: history, MDM, physical Personally performed: exam, history, MDM, supervision of care Care discussed with: Medical Student Procedures: n/a Results interpretation: Verified all documentation Verification and Attestation of Medical Student E/M Service A medical student performed and documented this service in my presence. I reviewed and verified all information documented by the medical student and made modifications to such information, when appropriate. I personally performed the physical exam and medical decision making. Belkys Cummings, Sep 12, 2022,12:21 ANDREI JACOBO Sep 12, 2022 11:40 BELKYS CUMMINGS MD Sep 12, 2022 12:32
--- NOTE | 2022-09-12 13:55 | Occupational Therapy Eval ---
OT Evaluation-General/PLF Medical Diagnosis Admission Date Sep 11, 2022 at 13:42 Medical Diagnosis: rectal bleeding Onset Date: Sep 11, 2022 Therapy Diagnosis Therapy Diagnosis: debility Height/Weight Height (Feet): 5 Height (Inches): 2.00 Weight (Pounds): 199 Weight (Ounces): 1.0 Precautions Precautions/Isolations: Fall Prevention, Standard Precautions Weight Bear Status Weight Bearing Restriction: Weight Bearing/Tolerated Referral Physician: Emiliano Referral Reason: Activity Tolerance, Self Care, Evaluation/Treatment Medical History Pertinent Medical History: CAD, DM, GERD, HTN Current History GI bleed Reviewed History: Yes Social History Home: Single Level Current Living Status: Alone Entry Into Home: Ramp Patient reports she does very little walking during the day, receives MOWs, stays active on social media ADL-Prior Level of Function SCALE: Activities may be completed with or without assistive devices. 8-Wbzsfqstuf-qpyzykf completes the activity by him/herself with no assistance from a helper. 5-Set-up or Clean-up Assistance-helper sets up or cleans up; patient completes activity. [place] assists only prior to or following the activity. 4-Supervision or Touching Assistance-helper provides verbal cues and/or touching/steadying and/or contact guard assistance as patient completes activity. Assistance may be provided throughout the activity or intermittently. 3-Partial/Moderate Assistance-helper does LESS THAN HALF the effort. [place] lifts, holds or supports trunk or limbs, but provides less than half the effort. 2-Substantial/Maximal Assistance-helper does MORE THAN HALF the effort. [place] lifts or holds trunk or limbs and provides more than half the effort. 3-Unimzvlkq-xkgxin does ALL the effort. Patient does none of the effort to complete the activity. Or, the assistance of 2 or more helpers is required for the patient to complete the activity. If activity was not attempted, code reason: 7-Patient Refused. 9-Not Applicable-not attempted and the patient did not perform the activity before the current illness, exacerbation or injury. 10-Not Attempted due to Environmental Limitations-(lack of equipment, weather restraints, etc.). 88-Not Attempted due to Medical Conditions or Safety Concerns. Self Care: Independent Functional Cognition: Independent OT Current Status Subjective Agreeable for OT Mental Status/Objective Patient Orientation: Person, Place, Time, Situation Attachments: IV Current Glasses/Contacts: Yes Upper Extremity ROM BUE ROM WFLS Upper Extremity Strength BUE WFLS -4/5 Low endurance, requires frequent ~30 second resting periods ADL-Treatment Eating (QC): 6 Oral Hygiene (QC): 5 (sitting) Shower/Bathe Self (QC): 7 (declined at this time) Upper Body Dressing (QC): 4 (d/t IV lines) Lower Body Dressing (QC): 5 On/Off Footwear (QC): 5 (leaves laces loosley tied) Toileting Hygiene (QC): 5 Other Treatments Verbalized PLB, energy conservation techniques, safe reaching distance, use of ADS Education OT Patient Education: Energy conservation, Modified ADL techniques, Progress toward Goal/Update tx plan, Purpose of tx/functional activities, Reviewed pre cautions, Rehab process, Safety issues, Transfer techniques, Use of adapted equipment Teaching Recipient: Patient Teaching Methods: Demonstration, Discussion Response to Teaching: Verbalize Understanding, Return Demonstration, Reinforcement Needed OT Half-Way Goals Inset Cutter Goals Eating (QC): 6 Oral Hygiene (QC): 6 Toileting Hygiene (QC): 6 Shower/Bathe Self (QC): 6 Upper Body Dressing (QC): 6 Lower Body Dressing (QC): 6 On/Off Footwear (QC): 6 1=Demonstrate adherence to instructed precautions during ADL tasks. 2=Patient will verbalize/demonstrate understanding of assistive devices/modifications for ADL. 3=Patient will improve strength/tolerance for activity to enable patient to perform ADL's. OT Education/Plan Problem List/Assessment Assessment: Decreased Activ Tolerance, Impaired Self-Care Skills Discharge Recommendations Plan/Recommendations: Continue POC Treatment Plan/Plan of Care Treatment,Training & Education: Yes Patient would benefit from OT for education, treatment and training to promote independence in ADL's, mobility, safety and/or upper extremity function for ADL's. Plan of Care: ADL Retraining, Group Exercise/Act as Ind, UE Funct Exercise/Act Frequency: 3 times per week (3-5 times per week) Estimated Hrs Per Day: .25 hour per day Agreement: Yes Rehab Potential: Good Time Start Time: 11:00 Stop Time: 11:20 DATE: Sep 12, 2022 Total Time Billed (hr/min): 20 Billed Treatment Time 1 visit EVM 1 20 min THANIA MARLOW OT Sep 12, 2022 13:55
[2022-09-12 16:36] VITALS: BP 127/58
[2022-09-12 19:45] VITALS: BP 133/60
[2022-09-12 23:53] VITALS: BP 120/56
[2022-09-13 03:41] VITALS: BP 105/54
[2022-09-13 06:11] LABS: HEMATOCRIT 26 % (35-52); HEMOGLOBIN 8.3 g/dL (11.5-16.0); MEAN CORPUSCULAR HEMOGLOBIN 28 pg (25-34); MEAN CORPUSCULAR HGB CONC 32 g/dL (32-36); MEAN CORPUSCULAR VOLUME 86 fL (80-99); MEAN PLATELET VOLUME 10.2 fL (9.0-12.2); PLATELET COUNT 179 10^3/uL (130-400); WHITE BLOOD COUNT 7.6 10^3/uL (4.3-11.0)
[2022-09-13 06:23] LABS: CALCIUM 8.8 MG/DL (8.5-10.1)
[2022-09-13 06:27] LABS: CREATININE SERUM 1.83 MG/DL (0.60-1.30)
[2022-09-13] MEDS: inSUlin ASPART (NovoLOG) 1 UNIT/0.01 ML (CHARGE PER UNIT) SC SCH (06:51)
[2022-09-13 07:26] VITALS: BP 113/56
--- NOTE | 2022-09-13 07:57 | Discharge Inst-Simple/Standard ---
Discharge Inst-Standard Discharge Medications New, Converted or Re-Newed RX: Transmitted to Pharmacy Patient Instructions/Follow Up Plan of Care/Instructions/FU: Please continue to take your medications as written but hold your plavix until after your colonoscopy when Dr Mnotana says you can restart it. Please follow up with your primary care doctor to follow up this hospital stay. Activity as Tolerated: Yes Discharge Diet: Cardiac Diet Return to The Hospital For: Chest pain,bloody stool, feeling like your are going to pass out, shortness of breath, fever, weakness, if you feel you are getting worse. BELKYS MILLS MD Sep 13, 2022 07:57
[2022-09-13] MEDS ORDERED: ASPI-1238 PO (07:58)
[2022-09-13] MEDS ORDERED: CLOP75TA28 PO (07:58)
--- NOTE | 2022-09-13 09:22 | Discharge Summary ---
Discharge Summary Hospital Course Hospital Course Date of Admission: Sep 11, 2022 at 13:42 Admission Diagnosis : Family Physician/Provider: Mendez Barajas MD Date of Discharge: 09/13/22 Discharge Diagnosis: GI bleed Hospital Course: Patient is a 77-year-old female with a history of CAD with stents, CKD, implantable defibrillator, HTN, DM, HLD, and multiple CVAs that presented to the ED on 09/11 with chief complaint of bloody stools. She reports that when she woke up she felt a small amount of liquid which was bright red when she wiped with a tissue. The patient then went to the bathroom and passed a large amount of bright red liquid stool. She denied any dark or tarry stools and estimated that she passed about a pint and a half of blood in total. The bleeding slowed down after a couple hours and stopped. Patient states taht this is a similar presentation as when she had a diverticular bleed in 2005. .The patient had a pink-tinged BM that night followed by some darker stool last night. Patient's hemoglobin was 10.3 on admission, which dropped to 8.2 the next morning and improved slightly to 8.3 today. The patient has had their plavix held during their stay and will continue to hold it until after her colonoscopy with Dr. Montana on the , will restart based on his recommendation. Patient has felt well throughout her stay and has no complaints. Patient is being discharged today. Labs and Pending Lab Test: Laboratory Tests 09/12/22 11:15: Glucometer 164H 09/12/22 16:40: Glucometer 125H 09/12/22 20:21: Glucometer 144H 09/13/22 05:45: White Blood Count 7.6, Red Blood Count 3.00L, Hemoglobin 8.3L, Hematocrit 26L, Mean Corpuscular Volume 86, Mean Corpuscular Hemoglobin 28, Mean Corpuscular Hemoglobin Concent 32, Red Cell Distribution Width 14.9H, Platelet Count 179, Mean Platelet Volume 10.2, Sodium Level 137, Potassium Level 4.0, Chloride Level 112H, Carbon Dioxide Level 14L, Anion Gap 11, Blood Urea Nitrogen 45H, Creatinine 1.83H, Estimat Glomerular Filtration Rate 28, BUN/Creatinine Ratio 25, Glucose Level 132H, Calcium Level 8.8 Microbiology 09/11/22 MRSA Screen - Final, Complete MRSA not isolated Home Meds Active Aspirin EC (Aspirin) 81 Mg Tablet. 81 Mg PO HS 30 Days Hold this medicine until Dr Montana says you can restart it after your colonoscopy. Clopidogrel (Clopidogrel Bisulfate) 75 Mg Tablet 75 Mg PO DAILY 30 Days Hold this medicine until Dr Montana says you can restart it after your colonoscopy. Reported Magnesium (Magnesium Oxide) 400 Mg Magnesium Tablet 400 Mg PO DAILY Preservision Areds 2 Softgel (Vit C/E/Zn/Coppr/Lutein/Zeaxan) 250MG-90MG Capsule 1 Each PO BID Multivitamin 1 Each Tablet 1 Each PO DAILY Rosuvastatin Calcium 10 Mg Tablet 10 Mg PO HS Furosemide 40 Mg Tablet 40 Mg PO DAILY Synjardy Xr 10-1,000 mg Tablet (Empagliflozin/Metformin HCl) 10 Mg-1,000 Mg Tab.bp.24h 1 Each PO DAILY Potassium Chloride 10 Meq Capsule.er 10 Meq PO BID Carvedilol 12.5 Mg Tablet 12.5 Mg PO BID Omeprazole 20 Mg Capsule. 20 Mg PO DAILY Losartan Potassium 100 Mg Tablet 100 Mg PO DAILY Assessment/Pt Instructions GI bleed Reports BM last night with some dark red coloration, no further episodes Surgery consulted, patient scheduled for endoscopy 09/16 Diet advanced yesterday, patient has tolerated well Monitor BP, has remained stable Hg improved from 8.2 yesterday to 8.3 today Hold plavix 75mg PO daily and aspirin 81mg PO daily CAD with stents Last stent placed 2018 Currently holding plavix CKD stage 4 BUN and Cr improved from 51 to 45 and 1.91 to 1.83 respectively, elevated at baseline Compensated systolic HF Last echo 03/01/19: EF 30-35% Monitor I's and O's DM, [id number]-akhibejtn SSI during hospital stay Glucose has been well-controlled HTN Patient's Losartan 100mg PO daily and carvedilol 12.5mg PO BID held during hospital stay BP has remained stable HLD Pravastatin 10mg PO daily Ezetimibe/rosuvastatin 10mg & 10mg PO daily Discharge Instructions Discharge Diet: Cardiac Diet Activity as Tolerated: Yes Discharge Physical Examination Vital Signs Vital Signs Date Time Temp Pulse Resp B/P (MAP) Pulse Ox O2 Delivery O2 Flow Rate FiO2 09/13/22 08:45 09/13/22 08:07 Room Air 09/13/22 07:26 36.2 82 18 96 General Appearance: No Apparent Distress, WD/WN HEENT: PERRL/EOMI, Pharynx Normal Respiratory: Chest Non Tender, Lungs Clear, No Accessory Muscle Use, No Res piratory Distress Cardiovascular: Regular Rate, Rhythm, No Edema, Normal Peripheral Pulses Gastrointestinal: Non Tender, Soft Extremity: Normal Capillary Refill, Non Tender, No Pedal Edema Skin: Normal Color, Warm/Dry Neurologic/Psychiatric: Alert, Oriented x3 Allergies: Coded Allergies: Sulfa (Sulfonamide Antibiotics) (Verified Allergy, Unknown, 09/01/05) Discharge Summary Date of Admission Sep 11, 2022 at 13:42 Date of Discharge Sep 13, 2022 at 08:47 Discharge Date: Sep 13, 2022 ANDREI JACOBO Sep 13, 2022 09:16
== END 2022-09-13 08:47 | disposition home or self-care (01) | DRG 378 ==
LOC: EDUNIT# 08:58 → ER 09:00 → 4TH 12:53 → OBSVTOIN 13:42
PROVIDERS: ADMIT Family Medicine; ATTEND Family Medicine
DX: K92.1 Melena (principal); I13.0 Hypertensive heart and chronic kidney disease with heart failure and stage 1 through stage 4 chronic kidney disease, or unspecified chronic kidney disease; N18.4 Chronic kidney disease, stage 4 (severe); I50.22 Chronic systolic (congestive) heart failure; I42.9 Cardiomyopathy, unspecified; I38 Endocarditis, valve unspecified; E11.22 Type 2 diabetes mellitus with diabetic chronic kidney disease; I25.10 Atherosclerotic heart disease of native coronary artery without angina pectoris; E78.00 Pure hypercholesterolemia, unspecified; K21.9 Gastro-esophageal reflux disease without esophagitis; M19.91 Primary osteoarthritis, unspecified site; Z95.2 Presence of prosthetic heart valve; Z95.5 Presence of coronary angioplasty implant and graft; Z79.84 Long term (current) use of oral hypoglycemic drugs; Z86.73 Personal history of transient ischemic attack (TIA), and cerebral infarction without residual deficits; Z79.02 Long term (current) use of antithrombotics/antiplatelets; Z79.82 Long term (current) use of aspirin; Z88.2 Allergy status to sulfonamides
CPT/HCPCS: 36415; 80048; 80053; 82947; 83735; 85025; 85027; 85610; 85730; 86850; 86900; 86901; 87081; 99283